=== PATIENT | male | born 1955 | race Caucasian/White ===

== ENCOUNTER → 2016-11-15 | Outpatient (CLI) | payer OTHER ==
[~2016-11-15] MED LIST: ALBU83IN INH; CITA10TA5 PO; DULO30CA PO; ETOD400T PO; GABA-283 PO; LORA1SOL PO; TIZA4CAP3 PO
--- NOTE | 2016-11-20 01:49 | ECWPNPC ---
PATIENT NAME: JULITA RICO : 1955 GENDER: MALE VISIT DATE: 11/15/2016 DISCHARGE DATE: 11/15/16 0938 VISIT LOCKED DATE TIME: PHYSICIAN: LIZETH CLEMONS RESOURCE: LIZETH CLEMONS REASON FOR APPOINTMENT 1. BACK HISTORY OF PRESENT ILLNESS HISTORY OF PRESENT ILLNESS: PAIN THE PATIENT DESCRIBES THE PAIN... FALL RISK SCREENING: SCREENING :NO FALLS IN THE PAST YEAR TODAY'S VISIT: NOTES: REPORTS PAIN IS CONSTANT. PAIN IS CENTERD IN LOW BACK AND RIGHT HIP AND SACRUM. PAIN ALSO RADIATES TO RIGHT KNEE. RATES PAIN TODAY 03/21.IS S/P LESB IN 12/17/15 WITH 75-80 % DECREASE IN PAIN FOR 2 WEEKS AND THEN SLOW RETUN OVER THE LAST 10 MONTHS. IS BECOMING HARDER TO WALK AND GO ABOUT HOUSEHOLD ACTIVITIES. . CURRENT MEDICATIONS TAKING ANECREAM 4 % CREAM EXTERNALLY EVERY 6 HR PRN TAKING CITALOPRAM HYDROBROMIDE 10 MG TABLET 1 TAB(S) ORALLY ONCE A DAY TAKING ALBUTEROL SULFATE HFA 108 (90 BASE) MCG/ACT AEROSOL SOLUTION 1-2 PUFFS NEEDED INHALATION EVERY 4-6 HRS TAKING METFORMIN HCL 1000 MG TABLET 1 TABLET WITH MEALS ORALLY TWICE A DAY TAKING LISINOPRIL 2.5 MG TABLET 1 TABLET ORALLY ONCE A DAY TAKING SYMBICORT 160-4.5 MCG/ACT AEROSOL 2 PUFFS INHALATION TWICE A DAY TAKING TRAZODONE HCL 50 MG TABLET 1 TABLET AT BEDTIME NEEDED ORALLY ONCE A DAY TAKING ROLLING WALKER 1 1 ROLLING WALKER WITH SEAT AND HANDBRAKES (DX. R26.81) _ DIRECTED TAKING GLIPIZIDE ER 10 MG TABLET EXTENDED RELEASE 24 HOUR TAKE ONE TABLET BY MOUTH PRIOR TO BREAKFAST AND DINNER ORALLY BID TAKING TRAMADOL HCL 50 MG TABLET 1 TABLET ORALLY EVERY 6 HRS PRN PAIN MDD=3 TAKING GABAPENTIN 400 MG CAPSULE TAKE ONE CAPSULE BY MOUTH 3 TIMES A DAY TAKING TIZANIDINE HCL 4 MG TABLET TAKE ONE TABLET BY MOUTH 3 TIMES A DAY NEEDED TAKING ETODOLAC 400 MG TABLET TAKE ONE TABLET BY MOUTH 2 TIMES A DAY TAKING DULOXETINE HCL 30 MG CAPSULE DELAYED RELEASE PARTICLES TAKE ONE CAPSULE BY MOUTH AT BEDTIME TAKING LORATADINE 10 MG TABLET TAKE ONE TABLET BY MOUTH ONCE DAILY NOT-TAKING NEURONTIN 400 MG CAPSULE 1 CAPSULE ORALLY TID NOT-TAKING DULERA 200-5 MCG/ACT AEROSOL 2 PUFFS INHALATION TWICE A DAY NOT-TAKING LISINOPRIL 2.5 MG TABLET TAKE ONE TABLET BY MOUTH ONCE DAILY NOT-TAKING SINGULAIR 10 MG TABLET TAKE ONE TABLET BY MOUTH EVERY EVENING NOT-TAKING BREO ELLIPTA 100 MCG/25 MCG INHALATION POWDER ONE INHALATION ORALLY ONCE DAILY NOT-TAKING TRAMADOL HCL 50 MG TABLET 1 TABLET ORALLY EVERY 6-8 HRS PRN PAIN MDD=3 NOT-TAKING FORADIL AEROLIZER 12 MCG CAPSULE 1 CAPSULE INHALATION EVERY 12 HRS NOT-TAKING ANORO ELLIPTA 62.5-25 MCG/INH AEROSOL POWDER BREATH ACTIVATED 1 PUFF INHALATION ONCE A DAY MEDICATION LIST REVIEWED AND RECONCILED WITH THE PATIENT PAST MEDICAL HISTORY LOW BACK PAIN TOBACCO ABUSE, IN REMISSION RIGHT HIP PAIN RIGHT KNEE PAIN WHEEZING ALLERGIC RHINITIS COPD (CHRONIC OBSTRUCTIVE PULMONARY DISEASE) ALLERGIES ANORO ELLIPTA: CHEST TIGHTNESS, DIZZINESS: SIDE EFFECTS FORADIL AEROLIZER: SEVERE DIZZINESS: SIDE EFFECTS BREO ELLIPTA: SEVERE DIZZINESS: SIDE EFFECTS SOCIAL HISTORY GENERAL: TOBACCO USE ARE YOU A:NONSMOKER LEARNING BARRIERS / SPECIAL NEEDS ORIENTED TO PLAN OF CARE: PATIENT, PAIN MANAGEMENT PATIENT, ORIENTED TO PLAN OF CARE: PATIENT, PAIN MANAGEMENT PATIENT. NEW PATIENT PAIN DIARY TODAY'S VISITNOTES FROM 0-10, WHAT LEVEL IS YOUR PAIN TODAY?0 PAIN CLINIC PFS, CLERGY, PUBLIC HEALTH REFERRALS PFS REFERRAL NEEDED?NO CLERGY REFERRAL NEEDED?NO PUBLIC HEALTH REFERRAL NEEDED?NO WAS THE PROVIDER NOTIFIED OF ANY PERTINENT INFO?NO PFS REFERRAL NEEDED?NO CLERGY REFERRAL NEEDED?NO PUBLIC HEALTH REFERRAL NEEDED?NO WAS THE PROVIDER NOTIFIED OF ANY PERTINENT INFO?NO REVIEW OF SYSTEMS CONSTITUTIONAL: ANY CHANGE IN YOUR MEDICAL CONDITION? NO . CHILLS NO . FEVER NO . INFECTION: DO YOU HAVE NEW INFECTIONS? NO . DO YOU HAVE HISTORY OF MRSA? NO . MUSCULOSKELETAL: ANY NEW PATTERNS OF PAIN OR NUMBNESS? NO . GASTROENTEROLOGY: ANY NEW CHANGE IN BOWEL CONTROL? NO - NO SIGNIF CONSTIPATION . GENITOURINARY: ANY NEW CHANGE IN BLADDER CONTROL? NO . IS THERE A CHANCE YOU COULD BE ? NO . HEMATOLOGY/LYMPH: DO YOU TAKE ANY BLOOD THINNERS? (FOR EXAMPLE- COUMADIN, PLAVIX, AGGRENOX, PLATEL, PRADAXA, OR XARELTO) NO . WHEN WAS YOUR LAST DOSE? DATE: TIME: . NEUROLOGY: HAVE YOU FALLEN IN THE PAST 6 MONTHS? NO . ANY NEW EXTREMITY NUMBNESS OR WEAKNESS? NO . CARDIOLOGY: DO YOU HAVE A PACEMAKER OR DEFIBRILLATOR? NO . RESPIRATORY: HAVE YOU BEEN SICK IN THE PAST WEEK? NO . FEVER NO . FLU LIKE SYMPTOMS? NO . CHRONIC LUNG DISEASES SORT OF BREATH WITH EXERTION . COUGH NO . INTEGUMENTARY: DO YOU HAVE ANY RASHES OR OPEN SORES? YES, RIGHT WRIST AND RIGHT UPPER ARM AFTER BANDAIDS REMOVED . ALLERGIC/IMMUNO: ARE YOU ALLERGIC TO SHELLFISH OR IV DYE? NO . ANY NEW ALLERGIES? NO . PSYCHIATRIC: DO YOU HAVE THOUGHTS OF HURTING YOURSELF OR SOMEONE ELSE? NO . ARE YOU ABUSED, NEGLECTED, OR IN AN UNSAFE ENVIRONMENT? NO . ENDOCRINOLOGY: ARE YOU DIABETIC? YES . OTHER: DO YOU NEED ANY PRESCRIPTIONS? NO . IF YES, PLEASE LIST: ____ . ANY NEW PROBLEMS WITH YOUR MEDICATIONS? NO . WHEN DID YOU LAST EAT? ____ . WHEN DID YOU LAST DRINK? ____ . WHAT DID YOU LAST DRINK? ____ . NAME OF PERSON DRIVING YOU HOME? ____ . DO YOU HAVE ANY OTHER QUESTIONS OR CONCERNS NO . SKIN: DO YOU HAVE ANY RASHES OR OPEN SORES? RIGHT BICEPS AND RIGHT WRIST - NOT HEALING . REVIEWED BY: PROVIDER: LIZETH GARCIAS . VITAL SIGNS WT 292.8 LBS, HT 67 IN, BMI 45.85 INDEX, BP 121/77 MM HG, HR 83 /MIN, RR 16 /MIN, TEMP 98.5 F, OXYGEN SAT % 96, NA INITIALS TL 0857, REVIEWED BY: CS. EXAMINATION GENERAL EXAMINATION: PSYCHALERT , ORIENTED X 3 , APPROPRIATE MOOD AND AFFECT . LUNGS:CLEAR TO AUSCULTATION BILATERALLY. HEART:HEART RATE REGULAR. MUSCULOSKELETAL:SLOW TO RISE TO STANDING POSITION. POINT TENDERNESS PRESENT OVER LUMOSACRAL SPINE AND ACROSS SACRUM WITH SPECIFIC TENDERNESS NOTED AT RIGHT FACETS AND RIGHT SIJS.. GAIT WIDE BASED/ ANTALGIC. PAIN WITH RIGHT QUAD FLEX.. 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 WALK TOLERATED,LUMBAR EPIDURAL INJECTION: YOUR PROCEDURE MATERIAL WAS PRINTED,WHAT IS LUMBAR EPIDURAL INJECTION? MATERIAL WAS PRINTED. CLINICAL NOTES: ISTOP REGISTRY REVIEWED AND DEMNOSTRATES COMPLLIANCE. PT ASKED TODAY FOR "STRONGER" PAIN MED. I DID REVIEW WITH HIM THAT DUE TO HIS RESPIRATORY SITUATION I WAS NOT COMFORTABLE WITH CHANGING HIS MEDS. PROCEDURE CODES FA211 ESTABILISHED PATIENT [facility] CHARGE DISPOSITION & COMMUNICATION FOLLOW UP AFTER INJECTION (REASON: CHECK AUTH FOR LESB) ELECTRONICALLY SIGNED BY TATIANA OGDEN ON 11/15/2016 AT 09:53 AM EST DISCLAIMER : THIS IS A VISIT SUMMARY EXTRACTED FROM THE [employer] CHART. IT IS NOT A COPY OF THE [employer] PROGRESS NOTE. MORRIS
== END ==
LOC: M PAIN 08:40
PROVIDERS: ATTEND Nurse Practitioner Family
DX: M43.16 Spondylolisthesis, lumbar region (principal); M46.96 Unspecified inflammatory spondylopathy, lumbar region; M48.06 Spinal stenosis, lumbar region; M54.41 Lumbago with sciatica, right side; F32.9 Major depressive disorder, single episode, unspecified; E11.42 Type 2 diabetes mellitus with diabetic polyneuropathy; E78.2 Mixed hyperlipidemia; Z79.891 Long term (current) use of opiate analgesic; Z79.899 Other long term (current) drug therapy; Z79.84 Long term (current) use of oral hypoglycemic drugs; Z88.8 Allergy status to other drugs, medicaments and biological substances

== ENCOUNTER → 2017-01-28 | Outpatient (REF) | payer OTHER ==
[2017-01-28 11:59] LABS: MEAN CORPUSCULAR HEMOGLOBIN 31.8 pg (27.0-33.0); MEAN CORPUSCULAR HGB CONC 34.8 g/dl (32.0-36.5); MEAN CORPUSCULAR VOLUME 91.4 fl (80.0-96.0); RED CELL DISTRIBUTION WIDTH 12.2 % (11.5-14.5); WHITE BLOOD COUNT 7.5 K/mm3 (4.0-10.0)
[2017-01-28 12:15] LABS: ALBUMIN 3.8 GM/DL (3.2-5.2); ALBUMIN/GLOBULIN RATIO 1.06 (1.00-1.93); ALKALINE PHOSPHATASE 54 U/L (45-117); ALT/SGPT 54 U/L (12-78); ANION GAP 7 MEQ/L (8-16); AST/SGOT 30 U/L (15-37); BILIRUBIN,TOTAL 0.6 MG/DL (0.2-1.0); BLOOD UREA NITROGEN 22 MG/DL (7-18); CALCIUM LEVEL 8.6 MG/DL (8.8-10.2); CARBON DIOXIDE LEVEL 29 MEQ/L (21-32); CHLORIDE LEVEL 103 MEQ/L (98-107); CHOLESTEROL LEVEL 189 MG/DL (<200); CREATININE FOR GFR 0.93 MG/DL (0.70-1.30); GLOMERULAR FILTRATION RATE > 60.0 (>49); GLUCOSE, FASTING 118 MG/DL (80-110); POTASSIUM SERUM 4.8 MEQ/L (3.5-5.1); SODIUM LEVEL 139 MEQ/L (136-145); TOTAL PROTEIN 7.4 GM/DL (6.4-8.2); TRIGLYCERIDES LEVEL 208 MG/DL (<150)
== END ==
LOC: M SFHCLERA 08:08
PROVIDERS: ATTEND Family Medicine
DX: E11.69 Type 2 diabetes mellitus with other specified complication (principal)

== ENCOUNTER → 2017-02-14 | Outpatient (REF) | payer OTHER | LOC: M SFHCLERA 08:48 | PROVIDERS: ATTEND Family Medicine | DX: E11.8 Type 2 diabetes mellitus with unspecified complications (principal); Z53.9 Procedure and treatment not carried out, unspecified reason ==

== ENCOUNTER → 2017-02-15 | Outpatient (CLI) | payer OTHER ==
--- NOTE | 2017-03-04 01:45 | ECWPNPC ---
PATIENT NAME: JULITA RICO : 1955 GENDER: MALE VISIT DATE: 02/15/2017 DISCHARGE DATE: 02/15/17925 VISIT LOCKED DATE TIME: PHYSICIAN: LIZETH CLEMONS RESOURCE: LIZETH CLEMONS REASON FOR APPOINTMENT 1. BACK HISTORY OF PRESENT ILLNESS HISTORY OF PRESENT ILLNESS: PAIN THE PATIENT DESCRIBES THE PAIN... FALL RISK SCREENING: SCREENING :NO FALLS IN THE PAST YEAR TODAY'S VISIT: NOTES: RATES PAIN TODAY 7/10. DESCRIBES PAIN CONSTANT, SHARP, STABBING, ACHING, TENDER AND SORE. PAIN CENTERED IN LOW BACK , RIGHT HIP/BUTTUCK AND LEG. . CURRENT MEDICATIONS TAKING ANECREAM 4 % CREAM EXTERNALLY EVERY 6 HR PRN TAKING ALBUTEROL SULFATE HFA 108 (90 BASE) MCG/ACT AEROSOL SOLUTION 1-2 PUFFS NEEDED INHALATION EVERY 4-6 HRS TAKING CITALOPRAM HYDROBROMIDE 10 MG TABLET 1 TAB(S) ORALLY ONCE A DAY TAKING TRAMADOL HCL 50 MG TABLET 1 TABLET ORALLY EVERY 6 HRS PRN PAIN MDD=3 TAKING DULOXETINE HCL 30 MG CAPSULE DELAYED RELEASE PARTICLES TAKE ONE CAPSULE BY MOUTH AT BEDTIME TAKING SINGULAIR 10 MG TABLET TAKE ONE TABLET BY MOUTH EVERY EVENING TAKING GABAPENTIN 400 MG CAPSULE TAKE ONE CAPSULE BY MOUTH 3 TIMES A DAY TAKING LORATADINE 10 MG TABLET TAKE ONE TABLET BY MOUTH ONCE DAILY TAKING TIZANIDINE HCL 4 MG TABLET TAKE ONE TABLET BY MOUTH 3 TIMES A DAY NEEDED TAKING ETODOLAC 400 MG TABLET TAKE ONE TABLET BY MOUTH 2 TIMES A DAY TAKING METFORMIN HCL 1000 MG TABLET 1 TABLET WITH MEALS ORALLY TWICE A DAY TAKING LISINOPRIL 2.5 MG TABLET 1 TABLET ORALLY ONCE A DAY TAKING ROLLING WALKER 1 1 HEAVY DUTY ROLLING WALKER WITH SEAT AND HANDBRAKES (DX. R26.81) - BMI 45, WEIGHT 290 LBS _ DIRECTED TAKING REMERON 15 MG TABLET 1 TABLET AT BEDTIME ORALLY ONCE A DAY TAKING PRAVASTATIN SODIUM 10 MG TABLET 1 TABLET ORALLY ONCE A DAY NOT-TAKING ATORVASTATIN CALCIUM 80 MG TABLET 1 TABLET ORALLY BEFORE BEDTIME NOT-TAKING SYMBICORT 160-4.5 MCG/ACT AEROSOL 2 PUFFS INHALATION TWICE A DAY NOT-TAKING GLIPIZIDE ER 10 MG TABLET EXTENDED RELEASE 24 HOUR 1 TABLET PRIOR TO BREAKFAST AND DINNER ORALLY BID NOT-TAKING GLIPIZIDE ER 10 MG TABLET EXTENDED RELEASE 24 HOUR TAKE ONE TABLET BY MOUTH PRIOR TO BREAKFAST AND DINNER ORALLY BID NOT-TAKING NEURONTIN 400 MG CAPSULE 1 CAPSULE ORALLY TID NOT-TAKING DULERA 200-5 MCG/ACT AEROSOL 2 PUFFS INHALATION TWICE A DAY NOT-TAKING BREO ELLIPTA 100 MCG/25 MCG INHALATION POWDER ONE INHALATION ORALLY ONCE DAILY NOT-TAKING TRAMADOL HCL 50 MG TABLET 1 TABLET ORALLY EVERY 6-8 HRS PRN PAIN MDD=3 NOT-TAKING FORADIL AEROLIZER 12 MCG CAPSULE 1 CAPSULE INHALATION EVERY 12 HRS NOT-TAKING ANORO ELLIPTA 62.5-25 MCG/INH AEROSOL POWDER BREATH ACTIVATED 1 PUFF INHALATION ONCE A DAY MEDICATION LIST REVIEWED AND RECONCILED WITH THE PATIENT PAST MEDICAL HISTORY OTHER CHRONIC PAIN PAIN IN RIGHT KNEE RIGHT HIP PAIN HEARING LOSS OF LEFT EAR, UNSPECIFIED HEARING LOSS TYPE BILATERAL 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 DEPRESSION OTHER SEASONAL ALLERGIC RHINITIS TYPE 2 DIABETES MELLITUS WITH DIABETIC POLYNEUROPATHY HYPERLIPIDEMIA ASSOCIATED WITH TYPE 2 DIABETES MELLITUS MIXED HYPERLIPIDEMIA NOCTURNAL HYPOXIA SPONDYLOLISTHESIS OF LUMBAR REGION LUMBAR FACET ARTHROPATHY CHRONIC PRESCRIPTION OPIATE USE SPINAL STENOSIS OF LUMBAR REGION STATIN-INDUCED MYOSITIS DIABETES MELLITUS WITH COMPLICATION INSOMNIA, UNSPECIFIED TYPE UNSTEADY GAIT HISTORY OF TOBACCO USE ALLERGIES ANORO ELLIPTA: CHEST TIGHTNESS, DIZZINESS: SIDE EFFECTS FORADIL AEROLIZER: SEVERE DIZZINESS: SIDE EFFECTS BREO ELLIPTA: SEVERE DIZZINESS: SIDE EFFECTS LIPITOR: SEVERE CRAMPS: SIDE EFFECTS REVIEW OF SYSTEMS REVIEWED BY: PROVIDER: . CONSTITUTIONAL: ANY CHANGE IN YOUR MEDICAL CONDITION? NO . CHILLS NO . FEVER NO . INFECTION: DO YOU HAVE NEW INFECTIONS? NO . DO YOU HAVE HISTORY OF MRSA? NO . MUSCULOSKELETAL: ANY NEW PATTERNS OF PAIN OR NUMBNESS? YES, AFTER LAYING ON LEFT SIDE, LEFT HIP GETS SORE . GASTROENTEROLOGY: ANY NEW CHANGE IN BOWEL CONTROL? NO . GENITOURINARY: ANY NEW CHANGE IN BLADDER CONTROL? NO . IS THERE A CHANCE YOU COULD BE ? NO . HEMATOLOGY/LYMPH: DO YOU TAKE ANY BLOOD THINNERS? (FOR EXAMPLE- COUMADIN, PLAVIX, AGGRENOX, PLATEL, PRADAXA, OR XARELTO) NO . WHEN WAS YOUR LAST DOSE? DATE: TIME: . NEUROLOGY: HAVE YOU FALLEN IN THE PAST 6 MONTHS? NO . ANY NEW EXTREMITY NUMBNESS OR WEAKNESS? NO . CARDIOLOGY: DO YOU HAVE A PACEMAKER OR DEFIBRILLATOR? NO . RESPIRATORY: HAVE YOU BEEN SICK IN THE PAST WEEK? NO . FEVER NO . FLU LIKE SYMPTOMS? NO . COUGH NO . INTEGUMENTARY: DO YOU HAVE ANY RASHES OR OPEN SORES? YES - RIGHT WRIST AND RIGHT UPPER EXTREMITY. . ALLERGIC/IMMUNO: ARE YOU ALLERGIC TO SHELLFISH OR IV DYE? NO . ANY NEW ALLERGIES? NO . PSYCHIATRIC: DO YOU HAVE THOUGHTS OF HURTING YOURSELF OR SOMEONE ELSE? NO . ARE YOU ABUSED, NEGLECTED, OR IN AN UNSAFE ENVIRONMENT? NO . ENDOCRINOLOGY: ARE YOU DIABETIC? YES -DOES NOT MONITOR BLOOD SUGAR . OTHER: DO YOU NEED ANY PRESCRIPTIONS? YES . IF YES, PLEASE LIST: TRAMADOL . ANY NEW PROBLEMS WITH YOUR MEDICATIONS? NO . WHEN DID YOU LAST EAT? ____ . WHEN DID YOU LAST DRINK? ____ . WHAT DID YOU LAST DRINK? ____ . NAME OF PERSON DRIVING YOU HOME? ____ . DO YOU HAVE ANY OTHER QUESTIONS OR CONCERNS YES,&QUOT;AFTER LAYING ON LEFT SIDE, LEFT HIP GETS SORE&QUOT; . VITAL SIGNS WT 294.0 LBS, HT 67 IN, BMI 46.04 INDEX, BP 124/69 MM HG, HR 70 /MIN, RR 16 /MIN, TEMP 96.0 F, OXYGEN SAT % 96%, NA INITIALS TL 0855, REVIEWED BY: MELODY. EXAMINATION GENERAL EXAMINATION: PSYCHALERT , ORIENTED X 3 , APPROPRIATE MOOD AND AFFECT . LUNGS:CLEAR TO AUSCULTATION BILATERALLY. HEART:HEART RATE REGULAR. MUSCULOSKELETAL:SLOW TO RISE TO STANDING POSITION. POINT TENDERNESS PRESENT OVER LUMOSACRAL SPINE AND ACROSS SACRUM WITH SPECIFIC TENDERNESS NOTED AT RIGHT FACETS AND RIGHT SIJS.. GAIT WIDE BASED/ ANTALGIC. PAIN WITH RIGHT QUAD FLEX.. 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 WALK TOLERATED. PROCEDURE CODES FA211 ESTABILISHED PATIENT [facility] CHARGE DISPOSITION & COMMUNICATION FOLLOW UP 3 MONTHS (REASON: BACK AND HIP PAIN) ELECTRONICALLY SIGNED BY TATIANA OGDEN ON 03/03/2017 AT 05:35 PM EDT DISCLAIMER : THIS IS A VISIT SUMMARY EXTRACTED FROM THE [employer] CHART. IT IS NOT A COPY OF THE [employer] PROGRESS NOTE. MORRIS
== END ==
LOC: M PAIN 08:40
PROVIDERS: ATTEND Nurse Practitioner Family
DX: M43.16 Spondylolisthesis, lumbar region (principal); M46.96 Unspecified inflammatory spondylopathy, lumbar region; M48.06 Spinal stenosis, lumbar region; G89.29 Other chronic pain; J43.1 Panlobular emphysema; F32.9 Major depressive disorder, single episode, unspecified; E11.69 Type 2 diabetes mellitus with other specified complication; R26.81 Unsteadiness on feet; G47.00 Insomnia, unspecified; Z79.891 Long term (current) use of opiate analgesic; Z79.899 Other long term (current) drug therapy; Z79.84 Long term (current) use of oral hypoglycemic drugs; Z88.8 Allergy status to other drugs, medicaments and biological substances; Z87.891 Personal history of nicotine dependence

== ENCOUNTER → 2017-05-19 | Outpatient (CLI) | payer OTHER ==
--- NOTE | 2017-06-05 00:31 | ECWPNPC ---
PATIENT NAME: JULITA RICO : 1955 GENDER: MALE VISIT DATE: 05/19/2017 DISCHARGE DATE: 05/19/17 1018 VISIT LOCKED DATE TIME: PHYSICIAN: LIZETH CLEMONS RESOURCE: LIZETH CLEMONS REASON FOR APPOINTMENT 1. BACK/HIPS HISTORY OF PRESENT ILLNESS HISTORY OF PRESENT ILLNESS: PAIN THE PATIENT DESCRIBES THE PAIN... FALL RISK SCREENING: SCREENING :NO FALLS IN THE PAST YEAR TODAY'S VISIT: NOTES: RATES PAIN TODAY 03/21. NOTES HAS BEEN DOING FAIRLY WELL EXCEPT WHEN IT RAINSPAIN IS CENTERED TO LOW BACK WITH RADIATION TO RIGHT HIP AND GROIN. NOTES SOME STIFFNESS. ABLE TO RISE TO STANDING POSITION. . CURRENT MEDICATIONS TAKING ANECREAM 4 % CREAM EXTERNALLY EVERY 6 HR PRN TAKING ALBUTEROL SULFATE HFA 108 (90 BASE) MCG/ACT AEROSOL SOLUTION 1-2 PUFFS NEEDED INHALATION EVERY 4-6 HRS TAKING CITALOPRAM HYDROBROMIDE 10 MG TABLET 1 TAB(S) ORALLY ONCE A DAY TAKING METFORMIN HCL 1000 MG TABLET 1 TABLET WITH MEALS ORALLY TWICE A DAY TAKING LISINOPRIL 2.5 MG TABLET 1 TABLET ORALLY ONCE A DAY TAKING ROLLING WALKER 1 1 HEAVY DUTY ROLLING WALKER WITH SEAT AND HANDBRAKES (DX. R26.81) - BMI 45, WEIGHT 290 LBS _ DIRECTED TAKING REMERON 15 MG TABLET 1 TABLET AT BEDTIME ORALLY ONCE A DAY TAKING SIMVASTATIN 5 MG TABLET 1 TABLET IN THE EVENING ORALLY ONCE A DAY TAKING TIZANIDINE HCL 4 MG TABLET TAKE ONE TABLET BY MOUTH 3 TIMES A DAY NEEDED TAKING LORATADINE 10 MG TABLET TAKE ONE TABLET BY MOUTH ONCE DAILY TAKING GABAPENTIN 400 MG CAPSULE TAKE ONE CAPSULE BY MOUTH 3 TIMES A DAY TAKING ETODOLAC 400 MG TABLET TAKE ONE TABLET BY MOUTH 2 TIMES A DAY TAKING SINGULAIR 10 MG TABLET TAKE ONE TABLET BY MOUTH EVERY EVENING ORALLY ONCE A DAY TAKING DULOXETINE HCL 30 MG CAPSULE DELAYED RELEASE PARTICLES TAKE ONE CAPSULE BY MOUTH AT BEDTIME DAILY TAKING TRAMADOL HCL 50 MG TABLET 1 TABLET ORALLY EVERY 6 HRS PRN PAIN MDD=3 NOT-TAKING SYMBICORT 160-4.5 MCG/ACT AEROSOL 2 PUFFS INHALATION TWICE A DAY NOT-TAKING GLIPIZIDE ER 10 MG TABLET EXTENDED RELEASE 24 HOUR 1 TABLET PRIOR TO BREAKFAST AND DINNER ORALLY BID NOT-TAKING GLIPIZIDE ER 10 MG TABLET EXTENDED RELEASE 24 HOUR TAKE ONE TABLET BY MOUTH PRIOR TO BREAKFAST AND DINNER ORALLY BID NOT-TAKING NEURONTIN 400 MG CAPSULE 1 CAPSULE ORALLY TID NOT-TAKING DULERA 200-5 MCG/ACT AEROSOL 2 PUFFS INHALATION TWICE A DAY NOT-TAKING BREO ELLIPTA 100 MCG/25 MCG INHALATION POWDER ONE INHALATION ORALLY ONCE DAILY NOT-TAKING TRAMADOL HCL 50 MG TABLET 1 TABLET ORALLY EVERY 6-8 HRS PRN PAIN MDD=3 NOT-TAKING FORADIL AEROLIZER 12 MCG CAPSULE 1 CAPSULE INHALATION EVERY 12 HRS NOT-TAKING ANORO ELLIPTA 62.5-25 MCG/INH AEROSOL POWDER BREATH ACTIVATED 1 PUFF INHALATION ONCE A DAY MEDICATION LIST REVIEWED AND RECONCILED WITH THE PATIENT PAST MEDICAL HISTORY OTHER CHRONIC PAIN PAIN IN RIGHT KNEE RIGHT HIP PAIN HEARING LOSS OF LEFT EAR, UNSPECIFIED HEARING LOSS TYPE BILATERAL 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 DEPRESSION OTHER SEASONAL ALLERGIC RHINITIS TYPE 2 DIABETES MELLITUS WITH DIABETIC POLYNEUROPATHY HYPERLIPIDEMIA ASSOCIATED WITH TYPE 2 DIABETES MELLITUS MIXED HYPERLIPIDEMIA NOCTURNAL HYPOXIA SPONDYLOLISTHESIS OF LUMBAR REGION LUMBAR FACET ARTHROPATHY CHRONIC PRESCRIPTION OPIATE USE SPINAL STENOSIS OF LUMBAR REGION STATIN-INDUCED MYOSITIS DIABETES MELLITUS WITH COMPLICATION INSOMNIA, UNSPECIFIED TYPE UNSTEADY GAIT HISTORY OF TOBACCO USE ALLERGIES ANORO ELLIPTA: CHEST TIGHTNESS, DIZZINESS: SIDE EFFECTS FORADIL AEROLIZER: SEVERE DIZZINESS: SIDE EFFECTS BREO ELLIPTA: SEVERE DIZZINESS: SIDE EFFECTS LIPITOR: SEVERE CRAMPS: SIDE EFFECTS LATEX: RASH: ALLERGY SOCIAL HISTORY GENERAL: TOBACCO USE ARE YOU A:: FORMER SMOKER , HOW LONG HAS IT BEEN SINCE YOU LAST SMOKED?: 1-5 YEARS, ARE YOU A: NONSMOKER. BMI CARE GOAL FOLLOW-UP ABOVE NORMAL BMI FOLLOW-UPDIETARY MANAGEMENT EDUCATION, GUIDANCE, AND COUNSELING ALCOHOL SCREENING DID YOU HAVE A DRINK CONTAINING ALCOHOL IN THE PAST YEAR?NO POINTS0 INTERPRETATIONNEGATIVE RECREATIONAL DRUG USE [facility]. [place] 1-2/DAY. OCCUPATION: UNEMPLOYED. DIET: REGULAR. EXERCISE: NO REGULAR EXERCISE. MARITAL STATUS: . OTHERS AT HOME: SPOUSE. PETS: NONE. ORIENTAL ORTHODOX NO PROTESTANT BELIEFS THAT WOULD IMPACT HEALTH CARE. LANGUAGE [place]. EDUCATION [employer]. LEARNING BARRIERS / SPECIAL NEEDS CHANGE FROM LAST VISIT?NO BARRIERS TO LEARNING?NO HEARING IMPAIRED?NO VISION IMPAIRED?YES :CORRECTIVE LENSES COGNITIVELY IMPAIRED?NO READINESS TO LEARN?YES LEARNING PREFERENCES?NO LEARNING CAPABILITIES PRESENT?YES EMOTIONAL BARRIERS?NO SPECIAL DEVICES?NO PAIN CLINIC PFS, CLERGY, PUBLIC HEALTH REFERRALS PFS REFERRAL NEEDED?NO CLERGY REFERRAL NEEDED?NO PUBLIC HEALTH REFERRAL NEEDED?NO HAS THE PATIENT BEEN EDUCATED REGARDING HIS/HER PLAN OF CARE?YES HAS THE PATIENT BEEN EDUCATED REGARDING PAIN, THE RISK FOR PAIN, THE IMPORTANCE OF EFFECTIVE PAIN MANAGEMENT, AND THE PAIN ASSESSMENT PROCESS?YES TRAVEL OUTSIDE US: NO. HOUSING: RENTS APARTMENT. DOMESTIC VIOLENCE NONE. REVIEW OF SYSTEMS REVIEWED BY: PROVIDER: LIZETH GARCIAS . CONSTITUTIONAL: ANY CHANGE IN YOUR MEDICAL CONDITION? NO . CHILLS NO . FEVER NO . INFECTION: DO YOU HAVE NEW INFECTIONS? NO . DO YOU HAVE HISTORY OF MRSA? NO . MUSCULOSKELETAL: ANY NEW PATTERNS OF PAIN OR NUMBNESS? NO . GASTROENTEROLOGY: ANY NEW CHANGE IN BOWEL CONTROL? NO . GENITOURINARY: ANY NEW CHANGE IN BLADDER CONTROL? NO . IS THERE A CHANCE YOU COULD BE ? NO . HEMATOLOGY/LYMPH: DO YOU TAKE ANY BLOOD THINNERS? (FOR EXAMPLE- COUMADIN, PLAVIX, AGGRENOX, PLATEL, PRADAXA, OR XARELTO) NO . WHEN WAS YOUR LAST DOSE? DATE: TIME: . NEUROLOGY: HAVE YOU FALLEN IN THE PAST 6 MONTHS? NO . ANY NEW EXTREMITY NUMBNESS OR WEAKNESS? NO . CARDIOLOGY: DO YOU HAVE A PACEMAKER OR DEFIBRILLATOR? NO . RESPIRATORY: HAVE YOU BEEN SICK IN THE PAST WEEK? NO . FEVER NO . FLU LIKE SYMPTOMS? NO . CHRONIC LUNG DISEASES COPD - NO SIG DETERUIORATION IN BREATHING STATUS. . COUGH NO . INTEGUMENTARY: DO YOU HAVE ANY RASHES OR OPEN SORES? NO . ALLERGIC/IMMUNO: ARE YOU ALLERGIC TO SHELLFISH OR IV DYE? NO . ANY NEW ALLERGIES? NO . PSYCHIATRIC: DO YOU HAVE THOUGHTS OF HURTING YOURSELF OR SOMEONE ELSE? NO . ARE YOU ABUSED, NEGLECTED, OR IN AN UNSAFE ENVIRONMENT? NO . ENDOCRINOLOGY: ARE YOU DIABETIC? YES - BLOOD SUGAES STABLE . OTHER: DO YOU NEED ANY PRESCRIPTIONS? NO . IF YES, PLEASE LIST: ____ . ANY NEW PROBLEMS WITH YOUR MEDICATIONS? NO . WHEN DID YOU LAST EAT? ____ . WHEN DID YOU LAST DRINK? ____ . WHAT DID YOU LAST DRINK? ____ . NAME OF PERSON DRIVING YOU HOME? ____ . DO YOU HAVE ANY OTHER QUESTIONS OR CONCERNS NO . VITAL SIGNS WT 283 LBS, HT 67 IN, BMI 44.32 INDEX, BP 120/70 MM HG, HR 74 /MIN, RR 16 /MIN, TEMP 96.0 F, OXYGEN SAT % 94%, NA INITIALS AW 0925, REVIEWED BY: MELODY. EXAMINATION GENERAL EXAMINATION: PSYCHALERT , ORIENTED X 3 , APPROPRIATE MOOD AND AFFECT . LUNGS:CLEAR TO AUSCULTATION BILATERALLY. HEART:HEART RATE REGULAR. MUSCULOSKELETAL:SLOW TO RISE TO STANDING POSITION. POINT TENDERNESS PRESENT OVER LUMOSACRAL SPINE AND ACROSS SACRUM WITH SPECIFIC TENDERNESS NOTED AT RIGHT FACETS AND RIGHT SIJS.. GAIT WIDE BASED/ ANTALGIC. PAIN WITH RIGHT QUAD FLEX.. 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 WALK TOLERATED. CALL WHEN MEDS DUE. CALL IF PAIN GETS WOSE OR IF THERE IS WORSE ABILITY TO MOVE. PROCEDURE CODES FA211 ESTABILISHED PATIENT [facility] CHARGE DISPOSITION & COMMUNICATION FOLLOW UP 3 MONTHS (REASON: BACK/HIP PAIN) ELECTRONICALLY SIGNED BY TATIANA OGDEN ON 06/04/2017 AT 03:00 PM EDT DISCLAIMER : THIS IS A VISIT SUMMARY EXTRACTED FROM THE [employer] CHART. IT IS NOT A COPY OF THE [employer] PROGRESS NOTE. MORRIS
== END ==
LOC: M PAIN 09:00
PROVIDERS: ATTEND Nurse Practitioner Family
DX: M43.16 Spondylolisthesis, lumbar region (principal); M46.96 Unspecified inflammatory spondylopathy, lumbar region; M48.06 Spinal stenosis, lumbar region; J43.1 Panlobular emphysema; F32.9 Major depressive disorder, single episode, unspecified; E11.42 Type 2 diabetes mellitus with diabetic polyneuropathy; E11.69 Type 2 diabetes mellitus with other specified complication; E78.2 Mixed hyperlipidemia; Z79.891 Long term (current) use of opiate analgesic; Z79.899 Other long term (current) drug therapy; Z79.84 Long term (current) use of oral hypoglycemic drugs; Z87.891 Personal history of nicotine dependence; Z88.8 Allergy status to other drugs, medicaments and biological substances; Z91.040 Latex allergy status

== ENCOUNTER → 2017-09-26 | Outpatient (CLI) | payer OTHER | LOC: M PAIN 10:45 | DX: M43.16 Spondylolisthesis, lumbar region (principal); M46.96 Unspecified inflammatory spondylopathy, lumbar region; M48.061 Spinal stenosis, lumbar region without neurogenic claudication; E11.9 Type 2 diabetes mellitus without complications; E78.5 Hyperlipidemia, unspecified; Z79.84 Long term (current) use of oral hypoglycemic drugs; Z79.899 Other long term (current) drug therapy; Z87.891 Personal history of nicotine dependence; Z88.8 Allergy status to other drugs, medicaments and biological substances; Z91.040 Latex allergy status | CPT/HCPCS: G0463 ==

== ENCOUNTER → 2018-02-09 | Outpatient (CLI) | payer OTHER ==
[2018-02-09 09:33] LABS: BASO # 0.1 10^3/uL (0.0-0.2); BASO % 1.5 % (0.0-1.0); EOS # 0.4 10^3/uL (0.0-0.50); HEMATOCRIT 39.2 % (42.0-52.0); HEMOGLOBIN 13.9 g/dl (13.5-17.5); IMMATURE GRANULOCYTE % 0.6 % (0-3.0); LYMPH % 42.5 % (24.0-44.0); MEAN CORPUSCULAR HGB CONC 35.5 g/dl (32.0-36.5); MEAN CORPUSCULAR VOLUME 90.1 fl (80.0-96.0); MONO # 0.7 10^3/uL (0.0-0.8); MONO % 9.5 % (0.0-5.0); NEUTROPHILS # 2.9 10^3/uL (1.8-7.7); NEUTROPHILS % 40.9 % (36.0-66.0); PLATELET COUNT, AUTOMATED 158 10^3/uL (150-450); RED BLOOD COUNT 4.35 10^6/uL (4.30-6.10); WHITE BLOOD COUNT 7.1 10^3/uL (4.0-10.0)
[2018-02-09 09:52] LABS: APPEARANCE, URINE CLEAR (CLEAR); BACTERIA, URINE AUTO NEGATIVE (NEGATIVE); BILIRUBIN, URINE AUTO NEGATIVE (NEGATIVE); BLOOD, URINE BLOOD NEGATIVE (NEGATIVE); COLOR, URINE YELLOW (YELLOW); GLUCOSE, URINE (UA) AUTO NEGATIVE (NEGATIVE); KETONE, URINE AUTO NEGATIVE (NEGATIVE); LEUKOCYTE ESTERASE, URINE AUTO NEGATIVE (NEGATIVE); MUCUS, URINE SMALL (NEGATIVE); NITRITE, URINE AUTO NEGATIVE (NEGATIVE); PROTEIN, URINE AUTO NEGATIVE (NEGATIVE); RBC, URINE AUTO 3 /HPF (0-3); SPECIFIC GRAVITY URINE AUTO 1.011 (1.002-1.035); SQUAMOUS EPITHELIAL CELL UR AU 0 /HPF (0-6); WBC, URINE AUTO 1 /HPF (0-3)
[2018-02-09 10:05] LABS: CREATININE, URINE 80.6 MG/DL; MALB URINE SIEMENS 10.5 MG/L
[2018-02-09 10:13] LABS: ESTIMATED AVERAGE GLUCOSE 140 MG/DL (60-110); HEMOGLOBIN A1c 6.5 %
[2018-02-09 21:58] LABS: ALBUMIN/GLOBULIN RATIO 1.08 (1.00-1.93); ALKALINE PHOSPHATASE 54 U/L (45-117); ALT/SGPT 79 U/L (12-78); ANION GAP 8 MEQ/L (8-16); AST/SGOT 59 U/L (7-37); BILIRUBIN,TOTAL 0.7 MG/DL (0.2-1.0); BLOOD UREA NITROGEN 16 MG/DL (7-18); CALCIUM LEVEL 9.1 MG/DL (8.8-10.2); CARBON DIOXIDE LEVEL 26 MEQ/L (21-32); CHLORIDE LEVEL 108 MEQ/L (98-107); CHOLESTEROL LEVEL 166 MG/DL (<200); CHOLESTEROL RISK RATIO 3.458 (<5); CREATININE FOR GFR 0.98 MG/DL (0.70-1.30); GLOMERULAR FILTRATION RATE > 60.0 (>49); GLUCOSE, FASTING 88 MG/DL (70-100); HDL CHOLESTEROL 48 MG/DL (>40); LDL CHOLESTEROL 85.6 MG/DL (<100); NON-HDL-C 118 MG/DL; POTASSIUM SERUM 4.1 MEQ/L (3.5-5.1); SODIUM LEVEL 142 MEQ/L (136-145); TOTAL PROTEIN 7.7 GM/DL (6.4-8.2); TRIGLYCERIDES LEVEL 162 MG/DL (<150)
== END ==
LOC: M LAB 07:46
DX: I10 Essential (primary) hypertension (principal); E78.2 Mixed hyperlipidemia; E11.65 Type 2 diabetes mellitus with hyperglycemia; Z79.4 Long term (current) use of insulin
CPT/HCPCS: 80053

== ENCOUNTER → 2020-04-08 | Outpatient (REF) | payer BC ==
[~2020-04-08] MED LIST changes: -DULO30CA PO; +DULO30CA9 PO; -GABA-283 PO; +GABA-845 PO; -LORA1SOL PO; +LORA5SOL12 PO; +TIZA4CAP PO; -TIZA4CAP3 PO
[2020-05-02 11:39] LABS: BASO # 0.2 10^3/uL (0.0-0.2); BASO % 1.5 % (0.0-1.0); EOS # 0.5 10^3/uL (0.0-0.5); EOS % 4.1 % (0.0-3.0); HEMATOCRIT 43.9 % (42.0-52.0); LYMPH # 5.2 10^3/uL (1.5-5.0); LYMPH % 46.8 % (24.0-44.0); MEAN CORPUSCULAR HEMOGLOBIN 32.5 pg (27.0-33.0); MEAN CORPUSCULAR HGB CONC 34.2 g/dl (32.0-36.5); MONO # 0.9 10^3/uL (0.0-0.8); MONO % 8.3 % (0.0-5.0); NEUTROPHILS # 4.3 10^3/uL (1.5-8.5); NEUTROPHILS % 38.8 % (36.0-66.0); PLATELET COUNT, AUTOMATED 210 10^3/uL (150-450); RED BLOOD COUNT 4.62 10^6/uL (4.30-6.10)
[2020-05-02 11:40] LABS: WHITE BLOOD COUNT 11.1 10^3/uL (4.0-10.0)
[2020-05-12 14:12] LABS: HEMOGLOBIN A1c 5.5 %
[2020-05-12 14:13] LABS: ALBUMIN 4.2 GM/DL (3.2-5.2); ALT/SGPT 33 U/L (12-78); BILIRUBIN,TOTAL 0.4 MG/DL (0.2-1.0); BLOOD UREA NITROGEN 19 MG/DL (7-18); CALCIUM LEVEL 9.7 MG/DL (8.8-10.2); CARBON DIOXIDE LEVEL 25 MEQ/L (21-32); CHLORIDE LEVEL 107 MEQ/L (98-107); CHOLESTEROL LEVEL 240 MG/DL (<200); CHOLESTEROL RISK RATIO 5.853 (<5); CREATININE FOR GFR 1.17 MG/DL (0.70-1.30); FREE T4 0.67 NG/DL (0.76-1.46); GLOMERULAR FILTRATION RATE > 60.0 (>49); HDL CHOLESTEROL 41 MG/DL (>40); LDL CHOLESTEROL 137 MG/DL (<100); NON-HDL-C 199 MG/DL; POTASSIUM SERUM 4.8 MEQ/L (3.5-5.1); SODIUM LEVEL 142 MEQ/L (136-145); TOTAL 25(OH) VITAMIN D 14.8 NG/ML (30.0-100.0); TOTAL PROTEIN 8.1 GM/DL (6.4-8.2); TOTAL T3 72.5 NG/DL (60.0-181.0); TRIGLYCERIDES LEVEL 311 MG/DL (<150)
[2020-05-12 14:14] LABS: GLUCOSE, FASTING 139 MG/DL (70-100)
[2020-06-13 12:08] LABS: PSA TOTAL See Separate Report
[2020-06-13 12:15] LABS: PSA FREE See Separate Report
== END ==
LOC: M WUC 15:07
PROVIDERS: ATTEND Nurse Practitioner Family
DX: I10 Essential (primary) hypertension (principal); Z13.29 Encounter for screening for other suspected endocrine disorder; Z12.5 Encounter for screening for malignant neoplasm of prostate; E11.69 Type 2 diabetes mellitus with other specified complication; Z13.21 Encounter for screening for nutritional disorder

== ENCOUNTER 2022-05-23 16:31 | Inpatient (IN) | payer MEDICARE, MEDICAID ==
[~2022-05-23] VITALS: Ht 172.7 cm; Wt 101.6 kg
[~2022-05-23 16:31] MED LIST changes: +ALBU2.5V10 INH; -ALBU83IN INH; -CITA10TA5 PO; +CITA10TA7 PO; +ETOD-173 PO; -ETOD400T PO; +GABA-283 PO; -GABA-845 PO; -LORA5SOL12 PO; +LORA5SOL44 PO
[2022-05-23 17:00] LABS: BASO # 0.1 10^3/uL (0.0-0.2); BASO % 0.5 % (0.0-1.0); EOS % 0.1 % (0.0-3.0); HEMATOCRIT 40.6 % (42.0-52.0); LYMPH # 1.4 10^3/uL (1.5-5.0); LYMPH % 10.4 % (24.0-44.0); MEAN CORPUSCULAR HGB CONC 34.5 g/dl (32.0-36.5); MEAN CORPUSCULAR VOLUME 89.8 fl (80.0-96.0); MONO # 0.9 10^3/uL (0.0-0.8); MONO % 6.5 % (2.0-8.0); NEUTROPHILS # 11.1 10^3/uL (1.5-8.5); NEUTROPHILS % 81.8 % (36.0-66.0); PLATELET COUNT, AUTOMATED 246 10^3/uL (150-450); RED BLOOD COUNT 4.52 10^6/uL (4.30-6.10); WHITE BLOOD COUNT 13.6 10^3/uL (4.0-10.0)
[2022-05-23] MEDS ORDERED: ACETAMINOPHEN 325 MG TAB PO ONE (17:00)
[2022-05-23] MEDS ORDERED: AZITHROMYCIN INJ 500 MG, VIAL MATE ADAPTER 1 EACH in NS 250 ML IV ONE (17:10)
[2022-05-23] MEDS ORDERED: cefTRIAXone SOD 1 GM in D5W MINI-BAG PLUS 50 ML IV ONE (17:10)
[2022-05-23 17:42] LABS: ALBUMIN 4.1 GM/DL (3.2-5.2); ALT/SGPT 14 U/L (12-78); BILIRUBIN,DIRECT 0.2 MG/DL (0.0-0.2); BILIRUBIN,TOTAL 0.6 MG/DL (0.2-1.0); BLOOD UREA NITROGEN 14 MG/DL (7-18); CALCIUM LEVEL 9.4 MG/DL (8.8-10.2); CARBON DIOXIDE LEVEL 25 MEQ/L (21-32); CHLORIDE LEVEL 100 MEQ/L (98-107); CREATININE FOR GFR 0.94 MG/DL (0.70-1.30); GLOMERULAR FILTRATION RATE > 60.0 (>49); GLUCOSE, FASTING 110 MG/DL (70-100); POTASSIUM SERUM 4.8 MEQ/L (3.5-5.1); SODIUM LEVEL 133 MEQ/L (136-145); THYROID STIMULATING HORMONE 0.292 uIU/ML (0.358-3.740); TOTAL PROTEIN 7.7 GM/DL (6.4-8.2)
[2022-05-23] MEDS ORDERED: GLIP10TA18 PO (19:14)
[2022-05-23] MEDS ORDERED: LISI2.5T9 PO (19:14)
[2022-05-23] MEDS ORDERED: OMEP-173 PO (19:14)
[2022-05-23] MEDS ORDERED: METF10004 PO (19:14)
[2022-05-23] MEDS ORDERED: MIRT-10 PO (19:14)
[2022-05-23] MEDS ORDERED: MONT10TA97 PO (19:14)
[2022-05-23] MEDS ORDERED: med rec comment (19:16)
[2022-05-23] MEDS ORDERED: HOME MED LIST COMPLETE! XX SCH (19:20)
[2022-05-23] MEDS: GABAPENTIN 400MG CAP PO SCH (20:01)
[2022-05-23] MEDS ORDERED: GLUCOSE 4GM CHEW TABLET PO PRN (20:15)
[2022-05-23] MEDS ORDERED: ALBUTEROL SULFATE 2.5 MG/0.5 ML INH NEB SOLN NEB PRN (20:15)
[2022-05-23] MEDS ORDERED: DEXTROSE 50% 50 ML SYRINGE IV PRN (20:15)
[2022-05-23] MEDS ORDERED: GLUCAGON INJ 1MG VIAL SC PRN (20:15)
[2022-05-23] MEDS ORDERED: MIRTAZAPINE 15 MG TAB PO SCH (21:00)
[2022-05-23] MEDS: INSULIN LISPRO (NovoLOG) PER UNIT SC SCH (21:00)
[2022-05-23] MEDS ORDERED: NS 500 ML IV ONE (21:05)
[2022-05-23] MEDS ORDERED: NICOTINE 21MG/24HR 1 EA TRANSDERMAL TD ONE (22:00)
[2022-05-23] MEDS ORDERED: ASPIRIN 81 MG CHEW TABLET PO ONE (22:00)
[2022-05-23 22:25] VITALS: BP 122/79
[2022-05-23 22:56] LABS: VENOUS BASE EXCESS -2.2 (-2.0-2.0); VENOUS HCO3 22.9 MEQ/L (23.0-27.0); VENOUS O2 SATURATION 55.3 % (60.0-80.0); VENOUS PARTIAL PRESSURE CO2 40.7 mmHg (38.0-50.0); VENOUS PARTIAL PRESSURE O2 29.2 mmHg (30.0-50.0); VENOUS PH 7.368 UNITS (7.330-7.430); VENOUS STANDARD HCO3 21.6 MEQ/L; VENOUS TOTAL CO2 24.1 MEQ/L (24.0-28.0)
[2022-05-23] MEDS: DOXYCYCLINE HYCLATE 100MG TABLET PO SCH (23:58)
[2022-05-24] VITALS: BP 132/71
[2022-05-24] MEDS: IPRATROPIUM 0.5MG/ALBUTEROL 2.5MG INH SOL UD 3ML (DUONEB) NEB SCH ×3 (02:00→19:03)
[2022-05-24 04:00] VITALS: BP 157/55
[2022-05-24] MEDS: INSULIN LISPRO (NovoLOG) PER UNIT SC SCH ×4 (07:30→21:00)
[2022-05-24 07:46] LABS: BLOOD UREA NITROGEN 15 MG/DL (7-18); CALCIUM LEVEL 9.1 MG/DL (8.8-10.2); CARBON DIOXIDE LEVEL 23 MEQ/L (21-32); CHLORIDE LEVEL 102 MEQ/L (98-107); CREATININE FOR GFR 0.76 MG/DL (0.70-1.30); GLOMERULAR FILTRATION RATE > 60.0 (>49); GLUCOSE, FASTING 92 MG/DL (70-100); HEMATOCRIT 37.9 % (42.0-52.0); HEMOGLOBIN 12.7 g/dl (13.5-17.5); MEAN CORPUSCULAR HEMOGLOBIN 30.4 pg (27.0-33.0); MEAN CORPUSCULAR HGB CONC 33.5 g/dl (32.0-36.5); MEAN CORPUSCULAR VOLUME 90.7 fl (80.0-96.0); PLATELET COUNT, AUTOMATED 205 10^3/uL (150-450); POTASSIUM SERUM 4.3 MEQ/L (3.5-5.1); RED BLOOD COUNT 4.18 10^6/uL (4.30-6.10); SODIUM LEVEL 133 MEQ/L (136-145); WHITE BLOOD COUNT 11.9 10^3/uL (4.0-10.0)
[2022-05-24 08:00] VITALS: BP 115/79
[2022-05-24 08:19] LABS: INR 1.14
[2022-05-24 08:20] LABS: PARTIAL THROMBOPLASTIN TIME 33.2 SECONDS (25.9-37.0)
[2022-05-24 08:23] LABS: ALBUMIN 3.4 GM/DL (3.2-5.2); ALT/SGPT 11 U/L (12-78); BILIRUBIN,TOTAL 0.8 MG/DL (0.2-1.0); NT-PRO BNP 4722 PG/ML (<125); TOTAL PROTEIN 6.6 GM/DL (6.4-8.2)
[2022-05-24] MEDS ORDERED: ENOXAPARIN 40MG/0.4ML SYRINGE (J1650 PER 10MG) SC SCH (09:00)
[2022-05-24] MEDS: DULoxetine 30MG CAPSULE (CYMBALTA) PO SCH (09:55)
[2022-05-24] MEDS: GABAPENTIN 400MG CAP PO SCH ×3 (09:55→21:00)
[2022-05-24] MEDS: DOXYCYCLINE HYCLATE 100MG TABLET PO SCH ×2 (09:55→21:00)
[2022-05-24] MEDS: OMEPRAZOLE 20MG CAP PO SCH (09:55)
[2022-05-24] MEDS ORDERED: ENOXAPARIN 60MG/0.6ML SYRINGE (J1650 PER 10MG) SC ONE (11:00)
[2022-05-24 11:20] LABS: AMPHETAMINES LEVEL URINE NEGATIVE (NEGATIVE); BARBITURATES URINE NEGATIVE (NEGATIVE); BENZODIAZEPINES URINE NEGATIVE (NEGATIVE); CANNABINOIDS URINE POSITIVE (NEGATIVE); COCAINE METABOLITE URINE NEGATIVE (NEGATIVE); METHADONE URINE NEGATIVE (NEGATIVE); OPIATES URINE NEGATIVE (NEGATIVE); PHENCYCLIDINE URINE NEGATIVE (NEGATIVE)
[2022-05-24] MEDS: METOPROLOL TART 25 MG TABLET PO SCH ×2 (12:38→21:00)
[2022-05-24 16:03] VITALS: BP 113/72
[2022-05-24] MEDS ORDERED: VANCOMYCIN HCL 1,000 MG, VIAL MATE ADAPTER 1 EACH in NS 250 ML IV SCH (16:20)
[2022-05-24] MEDS: NS 1,000 ML IV SCH (17:50)
[2022-05-24] MEDS: cefTRIAXone SOD 1 GM in D5W MINI-BAG PLUS 50 ML IV SCH (17:51)
[2022-05-24] MEDS ORDERED: VANCOMYCIN HCL 1,000 MG, VIAL MATE ADAPTER 1 EACH in NS 250 ML IV ONE ×2 (19:00→20:00)
[2022-05-24 19:07] VITALS: BP 99/65
[2022-05-24 20:00] VITALS: BP 119/73
[2022-05-24] MEDS: ENOXAPARIN 100MG/1ML SYRINGE (J1650 PER 10MG) SC SCH (21:00)
[2022-05-25] VITALS: BP 124/79
[2022-05-25] MEDS: IPRATROPIUM 0.5MG/ALBUTEROL 2.5MG INH SOL UD 3ML (DUONEB) NEB SCH ×4 (02:00→21:09)
[2022-05-25] MEDS: VANCOMYCIN HCL 750 MG, VIAL MATE ADAPTER 1 EACH in D5W 250 ML IV SCH ×4 (02:57→18:36)
[2022-05-25 04:00] VITALS: BP 124/83
[2022-05-25] MEDS: NS 1,000 ML IV SCH (04:17)
[2022-05-25 06:00] LABS: HEMATOCRIT 36.9 % (42.0-52.0); HEMOGLOBIN 12.3 g/dl (13.5-17.5); MEAN CORPUSCULAR HEMOGLOBIN 30.6 pg (27.0-33.0); MEAN CORPUSCULAR HGB CONC 33.3 g/dl (32.0-36.5); MEAN CORPUSCULAR VOLUME 91.8 fl (80.0-96.0); PLATELET COUNT, AUTOMATED 186 10^3/uL (150-450); RED BLOOD COUNT 4.02 10^6/uL (4.30-6.10); WHITE BLOOD COUNT 9.3 10^3/uL (4.0-10.0)
[2022-05-25 06:47] LABS: ALBUMIN 3.2 GM/DL (3.2-5.2); ALT/SGPT 12 U/L (12-78); BILIRUBIN,TOTAL 0.7 MG/DL (0.2-1.0); BLOOD UREA NITROGEN 13 MG/DL (7-18); CALCIUM LEVEL 9.3 MG/DL (8.8-10.2); CARBON DIOXIDE LEVEL 28 MEQ/L (21-32); CHLORIDE LEVEL 101 MEQ/L (98-107); CREATININE FOR GFR 0.76 MG/DL (0.70-1.30); GLOMERULAR FILTRATION RATE > 60.0 (>49); GLUCOSE, FASTING 79 MG/DL (70-100); POTASSIUM SERUM 4.5 MEQ/L (3.5-5.1); SODIUM LEVEL 132 MEQ/L (136-145); TOTAL PROTEIN 6.3 GM/DL (6.4-8.2)
[2022-05-25] MEDS: INSULIN LISPRO (NovoLOG) PER UNIT SC SCH ×4 (07:30→20:25)
[2022-05-25 07:31] VITALS: BP 128/74
[2022-05-25] MEDS: ENOXAPARIN 100MG/1ML SYRINGE (J1650 PER 10MG) SC SCH ×2 (08:31→20:24)
[2022-05-25] MEDS: METOPROLOL TART 25 MG TABLET PO SCH ×2 (08:31→20:24)
[2022-05-25] MEDS: DULoxetine 30MG CAPSULE (CYMBALTA) PO SCH (08:31)
[2022-05-25] MEDS: OMEPRAZOLE 20MG CAP PO SCH (08:31)
[2022-05-25] MEDS: GABAPENTIN 400MG CAP PO SCH ×3 (08:31→20:24)
[2022-05-25] MEDS: DOXYCYCLINE HYCLATE 100MG TABLET PO SCH ×2 (08:31→20:24)
[2022-05-25 10:08] LABS: MAGNESIUM LEVEL 1.4 MG/DL (1.8-2.4)
[2022-05-25 12:00] VITALS: BP 112/71
[2022-05-25] MEDS ORDERED: MAGNESIUM OXIDE 400MG TAB (MAG-OX) PO ONE (13:40)
[2022-05-25 16:00] VITALS: BP_SYST 132; BP_SYST 99; BP_DIAS 58; BP_DIAS 78
[2022-05-25 20:00] VITALS: BP 114/64
[2022-05-25] MEDS: cefTRIAXone SOD 1 GM in D5W MINI-BAG PLUS 50 ML IV SCH (20:24)
[2022-05-26] VITALS: BP 103/61
[2022-05-26] MEDS: IPRATROPIUM 0.5MG/ALBUTEROL 2.5MG INH SOL UD 3ML (DUONEB) NEB SCH ×2 (01:28→06:58)
[2022-05-26] MEDS: VANCOMYCIN HCL 750 MG, VIAL MATE ADAPTER 1 EACH in D5W 250 ML IV SCH ×4 (02:41→16:42)
[2022-05-26] MEDS: ACETAMINOPHEN TAB 650MG DOSE (2X325MG) PO PRN (02:48)
[2022-05-26 04:00] VITALS: BP 126/77
[2022-05-26 04:02] LABS: HEMOGLOBIN 12.2 g/dl (13.5-17.5); MEAN CORPUSCULAR HEMOGLOBIN 31.2 pg (27.0-33.0); MEAN CORPUSCULAR HGB CONC 33.9 g/dl (32.0-36.5); MEAN CORPUSCULAR VOLUME 92.1 fl (80.0-96.0); PLATELET COUNT, AUTOMATED 187 10^3/uL (150-450); RED BLOOD COUNT 3.91 10^6/uL (4.30-6.10); WHITE BLOOD COUNT 7.4 10^3/uL (4.0-10.0)
[2022-05-26 04:30] LABS: ALBUMIN 3.2 GM/DL (3.2-5.2); ALT/SGPT 13 U/L (12-78); BILIRUBIN,TOTAL 0.4 MG/DL (0.2-1.0); BLOOD UREA NITROGEN 13 MG/DL (7-18); CALCIUM LEVEL 8.9 MG/DL (8.8-10.2); CARBON DIOXIDE LEVEL 28 MEQ/L (21-32); CHLORIDE LEVEL 99 MEQ/L (98-107); CREATININE FOR GFR 0.72 MG/DL (0.70-1.30); GLOMERULAR FILTRATION RATE > 60.0 (>49); GLUCOSE, FASTING 100 MG/DL (70-100); MAGNESIUM LEVEL 1.3 MG/DL (1.8-2.4); SODIUM LEVEL 134 MEQ/L (136-145); TOTAL PROTEIN 6.2 GM/DL (6.4-8.2)
[2022-05-26] MEDS: INSULIN LISPRO (NovoLOG) PER UNIT SC SCH ×4 (07:30→20:35)
[2022-05-26 08:00] VITALS: BP 106/74
[2022-05-26] MEDS ORDERED: MAG SULF 1GM/100ML (MAG RUN) 1 GM in IV 1 EA IV ONE (08:00)
[2022-05-26] MEDS: METOPROLOL TART 25 MG TABLET PO SCH ×2 (09:00→20:36)
[2022-05-26] MEDS: DULoxetine 30MG CAPSULE (CYMBALTA) PO SCH (09:15)
[2022-05-26] MEDS: ENOXAPARIN 100MG/1ML SYRINGE (J1650 PER 10MG) SC SCH (09:15)
[2022-05-26] MEDS: OMEPRAZOLE 20MG CAP PO SCH (09:15)
[2022-05-26] MEDS: DOXYCYCLINE HYCLATE 100MG TABLET PO SCH ×2 (09:16→20:35)
[2022-05-26] MEDS: GABAPENTIN 400MG CAP PO SCH ×3 (09:16→20:35)
[2022-05-26 13:42] VITALS: BP 110/64
[2022-05-26 16:00] VITALS: BP 105/70
[2022-05-26] MEDS: cefTRIAXone SOD 1 GM in D5W MINI-BAG PLUS 50 ML IV SCH (18:12)
[2022-05-26 20:00] VITALS: BP 99/70
[2022-05-26] MEDS: APIXABAN 5 MG TAB (ELIQUIS) PO SCH (20:35)
[2022-05-27 00:08] VITALS: BP 104/80
[2022-05-27] MEDS: VANCOMYCIN HCL 750 MG, VIAL MATE ADAPTER 1 EACH in D5W 250 ML IV SCH ×2 (02:07→03:37)
[2022-05-27 04:00] VITALS: BP 112/73
[2022-05-27 04:26] LABS: HEMATOCRIT 36.1 % (42.0-52.0); HEMOGLOBIN 11.9 g/dl (13.5-17.5); MEAN CORPUSCULAR HEMOGLOBIN 30.4 pg (27.0-33.0); MEAN CORPUSCULAR VOLUME 92.1 fl (80.0-96.0); PLATELET COUNT, AUTOMATED 203 10^3/uL (150-450); RED BLOOD COUNT 3.92 10^6/uL (4.30-6.10); WHITE BLOOD COUNT 6.3 10^3/uL (4.0-10.0)
[2022-05-27 05:05] LABS: ALBUMIN 3.1 GM/DL (3.2-5.2); ALT/SGPT 13 U/L (12-78); BILIRUBIN,TOTAL 0.5 MG/DL (0.2-1.0); BLOOD UREA NITROGEN 10 MG/DL (7-18); CARBON DIOXIDE LEVEL 29 MEQ/L (21-32); CHLORIDE LEVEL 99 MEQ/L (98-107); CREATININE FOR GFR 0.76 MG/DL (0.70-1.30); GLOMERULAR FILTRATION RATE > 60.0 (>49); GLUCOSE, FASTING 103 MG/DL (70-100); MAGNESIUM LEVEL 1.5 MG/DL (1.8-2.4); SODIUM LEVEL 132 MEQ/L (136-145); TOTAL PROTEIN 6.3 GM/DL (6.4-8.2)
[2022-05-27] MEDS: MAG SULF 1GM/100ML (MAG RUN) 1 GM in IV 1 EA IV SCH ×2 (05:52→07:17)
[2022-05-27] MEDS ORDERED: MAG SULF 1GM/100ML (MAG RUN) 1 GM in IV 1 EA IV ONE (07:15)
[2022-05-27] MEDS: INSULIN LISPRO (NovoLOG) PER UNIT SC SCH ×4 (07:30→21:00)
[2022-05-27 08:00] VITALS: BP 100/73
[2022-05-27] MEDS: METOPROLOL TART 25 MG TABLET PO SCH ×2 (08:38→21:00)
[2022-05-27] MEDS: DOXYCYCLINE HYCLATE 100MG TABLET PO SCH ×2 (09:30→21:26)
[2022-05-27] MEDS: GABAPENTIN 400MG CAP PO SCH ×3 (09:30→21:25)
[2022-05-27] MEDS: APIXABAN 5 MG TAB (ELIQUIS) PO SCH ×2 (09:30→21:26)
[2022-05-27] MEDS: DULoxetine 30MG CAPSULE (CYMBALTA) PO SCH (09:30)
[2022-05-27] MEDS: OMEPRAZOLE 20MG CAP PO SCH (09:30)
[2022-05-27 18:05] VITALS: BP 110/79
[2022-05-27] MEDS: cefTRIAXone SOD 1 GM in D5W MINI-BAG PLUS 50 ML IV SCH (18:26)
[2022-05-27 21:16] VITALS: BP 101/66
[2022-05-28 06:00] VITALS: BP 110/82
[2022-05-28 06:19] LABS: HEMATOCRIT 36.1 % (42.0-52.0); HEMOGLOBIN 12.3 g/dl (13.5-17.5); MEAN CORPUSCULAR HEMOGLOBIN 30.8 pg (27.0-33.0); MEAN CORPUSCULAR HGB CONC 34.1 g/dl (32.0-36.5); MEAN CORPUSCULAR VOLUME 90.5 fl (80.0-96.0); PLATELET COUNT, AUTOMATED 209 10^3/uL (150-450); RED BLOOD COUNT 3.99 10^6/uL (4.30-6.10); WHITE BLOOD COUNT 6.2 10^3/uL (4.0-10.0)
[2022-05-28 06:59] LABS: ALBUMIN 3.2 GM/DL (3.2-5.2); ALT/SGPT 14 U/L (12-78); BILIRUBIN,TOTAL 0.5 MG/DL (0.2-1.0); BLOOD UREA NITROGEN 13 MG/DL (7-18); CARBON DIOXIDE LEVEL 30 MEQ/L (21-32); CHLORIDE LEVEL 99 MEQ/L (98-107); CREATININE FOR GFR 0.71 MG/DL (0.70-1.30); GLOMERULAR FILTRATION RATE > 60.0 (>49); GLUCOSE, FASTING 97 MG/DL (70-100); MAGNESIUM LEVEL 1.6 MG/DL (1.8-2.4); POTASSIUM SERUM 4.2 MEQ/L (3.5-5.1); SODIUM LEVEL 134 MEQ/L (136-145); TOTAL PROTEIN 6.5 GM/DL (6.4-8.2)
[2022-05-28] MEDS: INSULIN LISPRO (NovoLOG) PER UNIT SC SCH ×4 (07:30→21:00)
[2022-05-28] MEDS: DULoxetine 30MG CAPSULE (CYMBALTA) PO SCH (09:11)
[2022-05-28] MEDS: DOXYCYCLINE HYCLATE 100MG TABLET PO SCH (09:11)
[2022-05-28] MEDS: APIXABAN 5 MG TAB (ELIQUIS) PO SCH ×2 (09:11→21:46)
[2022-05-28] MEDS: METOPROLOL TART 25 MG TABLET PO SCH ×2 (09:11→21:00)
[2022-05-28] MEDS: OMEPRAZOLE 20MG CAP PO SCH (09:11)
[2022-05-28] MEDS: GABAPENTIN 400MG CAP PO SCH ×3 (09:11→21:46)
[2022-05-28] MEDS: ACETAMINOPHEN TAB 650MG DOSE (2X325MG) PO PRN (17:12)
[2022-05-28 21:51] VITALS: BP 100/57
[2022-05-29 06:31] VITALS: BP 117/91
[2022-05-29 07:00] LABS: HEMATOCRIT 40.3 % (42.0-52.0); HEMOGLOBIN 13.4 g/dl (13.5-17.5); MEAN CORPUSCULAR HEMOGLOBIN 30.2 pg (27.0-33.0); MEAN CORPUSCULAR HGB CONC 33.3 g/dl (32.0-36.5); PLATELET COUNT, AUTOMATED 239 10^3/uL (150-450); RED BLOOD COUNT 4.43 10^6/uL (4.30-6.10); WHITE BLOOD COUNT 6.4 10^3/uL (4.0-10.0)
[2022-05-29] MEDS: INSULIN LISPRO (NovoLOG) PER UNIT SC SCH ×4 (07:30→21:00)
[2022-05-29 07:49] LABS: ALBUMIN 3.6 GM/DL (3.2-5.2); ALT/SGPT 22 U/L (12-78); BILIRUBIN,TOTAL 0.5 MG/DL (0.2-1.0); BLOOD UREA NITROGEN 14 MG/DL (7-18); CALCIUM LEVEL 9.6 MG/DL (8.8-10.2); CARBON DIOXIDE LEVEL 31 MEQ/L (21-32); CHLORIDE LEVEL 97 MEQ/L (98-107); CREATININE FOR GFR 0.72 MG/DL (0.70-1.30); GLOMERULAR FILTRATION RATE > 60.0 (>49); GLUCOSE, FASTING 99 MG/DL (70-100); MAGNESIUM LEVEL 1.5 MG/DL (1.8-2.4); POTASSIUM SERUM 5.1 MEQ/L (3.5-5.1); SODIUM LEVEL 134 MEQ/L (136-145); TOTAL PROTEIN 7.1 GM/DL (6.4-8.2)
[2022-05-29] MEDS: DULoxetine 30MG CAPSULE (CYMBALTA) PO SCH (09:06)
[2022-05-29] MEDS: METOPROLOL TART 25 MG TABLET PO SCH ×2 (09:06→21:08)
[2022-05-29] MEDS: GABAPENTIN 400MG CAP PO SCH ×3 (09:06→21:06)
[2022-05-29] MEDS: OMEPRAZOLE 20MG CAP PO SCH (09:06)
[2022-05-29] MEDS: APIXABAN 5 MG TAB (ELIQUIS) PO SCH ×2 (09:06→21:06)
[2022-05-29 20:07] LABS: VITAMIN B1 LEVEL WHOLE BLOOD 114.7 nmol/L (66.5-200.0)
[2022-05-30 06:14] VITALS: BP 114/78
[2022-05-30] MEDS: METOPROLOL TART 25 MG TABLET PO SCH ×2 (07:56→20:07)
[2022-05-30] MEDS: INSULIN LISPRO (NovoLOG) PER UNIT SC SCH ×4 (07:56→20:07)
[2022-05-30] MEDS: GABAPENTIN 400MG CAP PO SCH ×3 (07:56→20:06)
[2022-05-30] MEDS: APIXABAN 5 MG TAB (ELIQUIS) PO SCH ×2 (07:56→20:06)
[2022-05-30] MEDS: OMEPRAZOLE 20MG CAP PO SCH (07:56)
[2022-05-30] MEDS: DULoxetine 30MG CAPSULE (CYMBALTA) PO SCH (07:57)
[2022-05-30] MEDS: ACETAMINOPHEN TAB 650MG DOSE (2X325MG) PO PRN (20:06)
[2022-05-31 06:00] VITALS: BP 95/65
[2022-05-31] MEDS: GABAPENTIN 400MG CAP PO SCH ×2 (08:42→15:26)
[2022-05-31] MEDS: DULoxetine 30MG CAPSULE (CYMBALTA) PO SCH (08:42)
[2022-05-31] MEDS: INSULIN LISPRO (NovoLOG) PER UNIT SC SCH ×2 (08:42→12:00)
[2022-05-31] MEDS: OMEPRAZOLE 20MG CAP PO SCH (08:42)
[2022-05-31 08:48] VITALS: BP 100/80
[2022-05-31] MEDS: METOPROLOL TART 25 MG TABLET PO SCH (08:48)
[2022-05-31] MEDS: APIXABAN 5 MG TAB (ELIQUIS) PO SCH (08:48)
[2022-05-31 14:13] LABS: BLOOD UREA NITROGEN 17 MG/DL (7-18); CALCIUM LEVEL 9.5 MG/DL (8.8-10.2); CARBON DIOXIDE LEVEL 30 MEQ/L (21-32); CHLORIDE LEVEL 98 MEQ/L (98-107); CREATININE FOR GFR 0.71 MG/DL (0.70-1.30); GLOMERULAR FILTRATION RATE > 60.0 (>49); GLUCOSE, FASTING 125 MG/DL (70-100); POTASSIUM SERUM 4.8 MEQ/L (3.5-5.1); SODIUM LEVEL 131 MEQ/L (136-145)
[2022-05-31] MEDS ORDERED: METO1TAB87 PO ×2 (14:54→15:07)
[2022-05-31] MEDS ORDERED: ELIQ5TAB PO ×2 (14:54→15:07)
== END 2022-05-31 16:15 | disposition home health service (06) | DRG 71 ==
LOC: EDBD 16:31 → M ED 16:31 → M ED INP 20:13 → ENRESERV 21:50 → M PCU 22:28 → M MS5PR 05-27 18:08
PROVIDERS: ADMIT Internal Medicine; ATTEND Family Medicine
PROC: B246ZZZ Ultrasonography of Right and Left Heart (ICD-10-PCS; principal; 2022-05-24)
DX: G93.41 Metabolic encephalopathy (principal); E87.1 Hypo-osmolality and hyponatremia; J98.11 Atelectasis; R29.6 Repeated falls; E11.42 Type 2 diabetes mellitus with diabetic polyneuropathy; F32.A Depression, unspecified; Z20.822 Contact with and (suspected) exposure to COVID-19; F17.210 Nicotine dependence, cigarettes, uncomplicated; Z79.84 Long term (current) use of oral hypoglycemic drugs; Z79.899 Other long term (current) drug therapy; Z88.8 Allergy status to other drugs, medicaments and biological substances; I48.91 Unspecified atrial fibrillation; I35.0 Nonrheumatic aortic (valve) stenosis; B95.8 Unspecified staphylococcus as the cause of diseases classified elsewhere

== ENCOUNTER 2022-06-14 16:58 | Emergency (ER) | payer MEDICARE, MEDICAID ==
[~2022-06-14] VITALS: Ht 170.2 cm; Wt 109.0 kg
[~2022-06-14 16:58] MED LIST changes: +ELIQ5TAB PO; +GLIP10TA18 PO; +LISI2.5T9 PO; +METF10004 PO; +METO1TAB87 PO; +MIRT-10 PO; +MONT10TA97 PO; +OMEP-173 PO; +med rec comment
[2022-06-14] MEDS ORDERED: ONDANSETRON 4MG 2ML VIAL IV ONE (17:50)
[2022-06-14] MEDS ORDERED: MORPHINE 4 MG/ML 1ML VIAL/SYRINGE IV ONE ×2 (17:50→22:35)
[2022-06-14 18:59] LABS: HEMATOCRIT 38.8 % (42.0-52.0); HEMOGLOBIN 13.3 g/dl (13.5-17.5); MEAN CORPUSCULAR HEMOGLOBIN 30.8 pg (27.0-33.0); MEAN CORPUSCULAR HGB CONC 34.3 g/dl (32.0-36.5); MEAN CORPUSCULAR VOLUME 89.8 fl (80.0-96.0); PLATELET COUNT, AUTOMATED 241 10^3/uL (150-450); RED BLOOD COUNT 4.32 10^6/uL (4.30-6.10); WHITE BLOOD COUNT 10.2 10^3/uL (4.0-10.0)
[2022-06-14 19:32] LABS: BLOOD UREA NITROGEN 17 MG/DL (7-18); CALCIUM LEVEL 9.5 MG/DL (8.8-10.2); CARBON DIOXIDE LEVEL 27 MEQ/L (21-32); CHLORIDE LEVEL 98 MEQ/L (98-107); CREATININE FOR GFR 0.76 MG/DL (0.70-1.30); GLOMERULAR FILTRATION RATE > 60.0 (>49); GLUCOSE, FASTING 119 MG/DL (70-100); POTASSIUM SERUM 4.1 MEQ/L (3.5-5.1); SODIUM LEVEL 131 MEQ/L (136-145)
[2022-06-14 21:34] LABS: RSV AMPLIFICATION NEGATIVE (NEGATIVE)
[2022-06-14 22:44] VITALS: BP 110/54
== END 2022-06-14 23:23 | disposition short-term general hospital (02) ==
LOC: M ED 16:58
DX: S22.42XA Multiple fractures of ribs, left side, initial encounter for closed fracture (principal); S22.081A Stable burst fracture of T11-T12 vertebra, initial encounter for closed fracture; S32.012A Unstable burst fracture of first lumbar vertebra, initial encounter for closed fracture; M43.06 Spondylolysis, lumbar region; M43.16 Spondylolisthesis, lumbar region; M51.26 Other intervertebral disc displacement, lumbar region; K57.30 Diverticulosis of large intestine without perforation or abscess without bleeding; W18.30XA Fall on same level, unspecified, initial encounter; Y92.099 Unspecified place in other non-institutional residence as the place of occurrence of the external cause; I51.9 Heart disease, unspecified; E11.9 Type 2 diabetes mellitus without complications; I10 Essential (primary) hypertension; J44.9 Chronic obstructive pulmonary disease, unspecified; Z79.4 Long term (current) use of insulin; Z79.84 Long term (current) use of oral hypoglycemic drugs; Z79.01 Long term (current) use of anticoagulants; Z79.899 Other long term (current) drug therapy; Z88.8 Allergy status to other drugs, medicaments and biological substances
CPT/HCPCS: 71101; 72131; 74176; 80048; 85027; 87631; 96374; 96375; 96376; 99284; J2270; J2405

== ENCOUNTER 2022-08-05 14:58 | Emergency (ER) | payer MEDICARE, MEDICAID ==
[~2022-08-05] VITALS: Ht 177.8 cm; Wt 109.1 kg
[2022-08-05 15:46] VITALS: BP 119/58
== END 2022-08-05 16:44 | disposition home or self-care (01) ==
LOC: EDBD 14:58 → M ED 14:58
DX: F43.0 Acute stress reaction (principal); E11.9 Type 2 diabetes mellitus without complications; E11.40 Type 2 diabetes mellitus with diabetic neuropathy, unspecified; F32.9 Major depressive disorder, single episode, unspecified; F17.200 Nicotine dependence, unspecified, uncomplicated; Z79.84 Long term (current) use of oral hypoglycemic drugs; Z79.899 Other long term (current) drug therapy; Z88.8 Allergy status to other drugs, medicaments and biological substances

== ENCOUNTER 2022-12-17 14:59 | Inpatient (IN) | payer MEDICARE, MEDICAID ==
[~2022-12-17] VITALS: Ht 170.2 cm; Wt 100.0 kg
[2022-12-17] MEDS ORDERED: NS 500 ML IV ONE (15:05)
[2022-12-17] MEDS ORDERED: BOOSTRIX/ADACEL VACCINE (DIPHTH/PERTUSS/ACELL/TETANUS) 0.5ML SYR IM.IMMUN ONE (15:05)
[2022-12-17] MEDS: MORPHINE 2 MG/ML 1ML VIAL IV PRN ×4 (15:27→17:54)
[2022-12-17] MEDS ORDERED: ISOVUE-370 76% 100ML VIAL As Ordered ONE (15:29)
[2022-12-17 15:41] LABS: BASO # 0.1 10^3/uL (0.0-0.2); BASO % 1.2 % (0.0-1.0); EOS # 0.3 10^3/uL (0.0-0.5); EOS % 3.3 % (0.0-3.0); HEMATOCRIT 42.9 % (42.0-52.0); HEMOGLOBIN 14.8 g/dl (13.5-17.5); LYMPH # 3.2 10^3/uL (1.5-5.0); LYMPH % 32.5 % (24.0-44.0); MEAN CORPUSCULAR HEMOGLOBIN 31.1 pg (27.0-33.0); MEAN CORPUSCULAR HGB CONC 34.5 g/dl (32.0-36.5); MEAN CORPUSCULAR VOLUME 90.1 fl (80.0-96.0); MONO # 0.9 10^3/uL (0.0-0.8); MONO % 8.8 % (2.0-8.0); NEUTROPHILS # 5.3 10^3/uL (1.5-8.5); NEUTROPHILS % 53.7 % (36.0-66.0); PLATELET COUNT, AUTOMATED 193 10^3/uL (150-450); RED BLOOD COUNT 4.76 10^6/uL (4.30-6.10); WHITE BLOOD COUNT 9.9 10^3/uL (4.0-10.0)
[2022-12-17 15:53] LABS: INR 1.01; PARTIAL THROMBOPLASTIN TIME 27.8 SECONDS (24.8-34.2); PROTHROMBIN TIME 13.5 SECONDS (12.5-14.5)
[2022-12-17 16:09] LABS: LIPASE 43 U/L (12-53)
[2022-12-17 16:10] LABS: AMYLASE 79 U/L (30-118)
[2022-12-17 16:12] LABS: ALBUMIN 3.9 G/DL (3.2-5.2); ALKALINE PHOSPHATASE 59 U/L (46-116); ALT/SGPT 21 U/L (7.0-40); AST/SGOT 29 U/L (<34); BILIRUBIN,DIRECT < 0.1 MG/DL (<0.4); BILIRUBIN,TOTAL 0.3 MG/DL (0.3-1.2); BLOOD UREA NITROGEN 21 MG/DL (9-23); CALCIUM LEVEL 8.8 MG/DL (8.3-10.6); CARBON DIOXIDE LEVEL 25 MMOL/L (20-31); CHLORIDE LEVEL 98 MMOL/L (98-107); CK-MB VALUE MASS 2.2 NG/ML (<3.6); CREATININE FOR GFR 0.67 MG/DL (0.70-1.30); GLOMERULAR FILTRATION RATE > 60.0 (>49); GLUCOSE, FASTING 132 MG/DL (74-106); POTASSIUM SERUM 4.3 MMOL/L (3.5-5.1); SODIUM LEVEL 133 MMOL/L (136-145)
[2022-12-17 16:17] LABS: RSV AMPLIFICATION NEGATIVE (NEGATIVE)
[2022-12-17 16:34] LABS: CPK CREATINE PHOSPHOKINASE 104 U/L (46-171); MB/CK RELATIVE INDEX 2.11 (< OR =4)
[2022-12-17 17:33] LABS: APPEARANCE, URINE CLEAR (CLEAR); BACTERIA, URINE AUTO NEGATIVE (NEGATIVE); BILIRUBIN, URINE AUTO NEGATIVE (NEGATIVE); BLOOD, URINE BLOOD NEGATIVE (NEGATIVE); COLOR, URINE YELLOW (YELLOW); GLUCOSE, URINE (UA) AUTO NEGATIVE (NEGATIVE); KETONE, URINE AUTO NEGATIVE (NEGATIVE); LEUKOCYTE ESTERASE, URINE AUTO NEGATIVE (NEGATIVE); MUCUS, URINE SMALL (NEGATIVE); NITRITE, URINE AUTO NEGATIVE (NEGATIVE); PROTEIN, URINE AUTO NEGATIVE (NEGATIVE); RBC, URINE AUTO 0 /HPF (0-3); SPECIFIC GRAVITY URINE AUTO 1.046 (1.002-1.035); SQUAMOUS EPITHELIAL CELL UR AU 0 /HPF (0-6); UROBILINOGEN, URINE AUTO 0.2 mg/dL (0.0-2.0); WBC, URINE AUTO 0 /HPF (0-3)
[2022-12-17] MEDS: INSULIN LISPRO (NovoLOG) PER UNIT SC SCH (18:00)
[2022-12-17] MEDS ORDERED: MORPHINE 4 MG/ML 1ML VIAL IV PRN (18:30)
[2022-12-17] MEDS ORDERED: ONDANSETRON 4MG 2ML VIAL IV PRN (18:30)
[2022-12-17] MEDS ORDERED: INSULIN LISPRO (NovoLOG) PER UNIT SC SCH (18:40)
[2022-12-17] MEDS ORDERED: IPRATROPIUM 0.5MG/ALBUTEROL 2.5MG INH SOL UD 3ML (DUONEB) NEB PRN (18:40)
[2022-12-17] MEDS ORDERED: GLUCOSE 4GM CHEW TABLET PO PRN (18:40)
[2022-12-17] MEDS ORDERED: DEXTROSE 50% 50ML SYRINGE IV PRN (18:40)
[2022-12-17] MEDS ORDERED: GLUCAGON INJ 1MG VIAL SC PRN (18:40)
[2022-12-17] MEDS ORDERED: MORPHINE 2 MG/ML 1ML VIAL IV ONE (18:40)
[2022-12-17] MEDS ORDERED: HOME MED LIST COMPLETE! XX SCH (18:45)
[2022-12-17 21:25] LABS: HEMOGLOBIN A1c 5.4 % (4.0-6.0)
[2022-12-17] MEDS: PERCOCET 5MG/325MG TAB PO PRN (21:45)
[2022-12-17 22:21] VITALS: BP 132/74
[2022-12-17] MEDS: CelecoXIB (CeleBREX) 100 MG CAP PO SCH (22:51)
[2022-12-17] MEDS ORDERED: D5W/0.9% SODIUM CHLORIDE 1,000 ML IV SCH (23:30)
[2022-12-18] VITALS (9 sets, daily range): BP systolic 102–136; BP diastolic 65–98
[2022-12-18] MEDS: INSULIN LISPRO (NovoLOG) PER UNIT SC SCH ×5 (06:00→23:37)
[2022-12-18 06:55] LABS: BLOOD UREA NITROGEN 17 MG/DL (9-23); CALCIUM LEVEL 8.1 MG/DL (8.3-10.6); CARBON DIOXIDE LEVEL 27 MMOL/L (20-31); CHLORIDE LEVEL 102 MMOL/L (98-107); CREATININE FOR GFR 0.63 MG/DL (0.70-1.30); GLOMERULAR FILTRATION RATE > 60.0 (>49); GLUCOSE, FASTING 126 MG/DL (74-106); SODIUM LEVEL 133 MMOL/L (136-145)
[2022-12-18 07:06] LABS: BASO # 0.1 10^3/uL (0.0-0.2); BASO % 1.3 % (0.0-1.0); EOS # 0.2 10^3/uL (0.0-0.5); EOS % 2.7 % (0.0-3.0); HEMATOCRIT 35.1 % (42.0-52.0); LYMPH # 1.8 10^3/uL (1.5-5.0); LYMPH % 30.1 % (24.0-44.0); MEAN CORPUSCULAR HGB CONC 34.5 g/dl (32.0-36.5); MONO # 0.7 10^3/uL (0.0-0.8); MONO % 12.4 % (2.0-8.0); NEUTROPHILS # 3.2 10^3/uL (1.5-8.5); NEUTROPHILS % 53.2 % (36.0-66.0); PLATELET COUNT, AUTOMATED 143 10^3/uL (150-450)
[2022-12-18 07:07] LABS: HEMOGLOBIN 12.1 g/dl (13.5-17.5)
[2022-12-18] MEDS: LR 1,000 ML IV SCH ×5 (08:31→21:21)
[2022-12-18] MEDS: PERCOCET 5MG/325MG TAB PO PRN ×3 (08:31→13:46)
[2022-12-18] MEDS: CelecoXIB (CeleBREX) 100 MG CAP PO SCH ×2 (08:32→21:21)
[2022-12-18] MEDS: PANTOPRAZOLE 20 MG TAB PO SCH (08:32)
[2022-12-18] MEDS ORDERED: MIDAZOLAM INJ 2MG/2ML VIAL As Ordered ONE (10:13)
[2022-12-18] MEDS ORDERED: fentaNYL 100 MCG/2 ML INJECTION As Ordered ONE (10:13)
[2022-12-18] MEDS ORDERED: KETAMINE INJ 500MG/5ML VIAL As Ordered ONE (10:13)
[2022-12-18] MEDS ORDERED: ceFAZolin 2 GM/D5W 50 ML IV BAG As Ordered ONE (10:14)
[2022-12-18] MEDS ORDERED: ePHEDrine SULFATE 25 MG/5 ML(5MG/ML) SYRINGE As Ordered ONE (11:53)
[2022-12-18] MEDS ORDERED: PHENYLephrine 500MCG 5ML (100MCG/ML) SYRINGE As Ordered ONE (11:53)
[2022-12-18] MEDS ORDERED: fentaNYL 100 MCG/2 ML INJECTION IV PRN (12:05)
[2022-12-18] MEDS ORDERED: MEPERIDINE 25 MG/ML 1ML VIAL IV PRN (12:05)
[2022-12-18] MEDS ORDERED: ONDANSETRON 4MG 2ML VIAL IV PRN (12:05)
[2022-12-18] MEDS ORDERED: PHENYLEPHRINE 10MG/ML 1ML VIAL As Ordered ONE (12:08)
[2022-12-18] MEDS ORDERED: ePHEDrine SULFATE 25 MG/5 ML(5MG/ML) SYRINGE IV PRN (12:10)
[2022-12-18] MEDS: PHENYLephrine 500MCG 5ML (100MCG/ML) SYRINGE IV PRN ×3 (12:18→12:30)
[2022-12-18] MEDS: ACETAMINOPHEN TAB 650MG DOSE (2X325MG) PO PRN (15:52)
[2022-12-18] MEDS: MORPHINE 2 MG/ML 1ML VIAL IV PRN (17:59)
[2022-12-18] MEDS: ceFAZolin SOD 2 GM in IV 1 EA IV SCH (18:00)
[2022-12-18] MEDS ORDERED: METOPROLOL TART 12.5 MG PER 1/2 TAB PO PRN (20:25)
[2022-12-19 01:44] VITALS: BP 102/61
[2022-12-19] MEDS: ceFAZolin SOD 2 GM in IV 1 EA IV SCH (01:45)
[2022-12-19] MEDS: PERCOCET 5MG/325MG TAB PO PRN ×4 (02:03→21:19)
[2022-12-19] MEDS: LR 1,000 ML IV SCH ×2 (02:05→03:27)
[2022-12-19 05:37] VITALS: BP 127/72
[2022-12-19] MEDS: INSULIN LISPRO (NovoLOG) PER UNIT SC SCH ×4 (05:48→21:00)
[2022-12-19 06:32] LABS: HEMATOCRIT 29.2 % (42.0-52.0); MEAN CORPUSCULAR HEMOGLOBIN 30.5 pg (27.0-33.0); MEAN CORPUSCULAR HGB CONC 32.9 g/dl (32.0-36.5); MEAN CORPUSCULAR VOLUME 92.7 fl (80.0-96.0); PLATELET COUNT, AUTOMATED 107 10^3/uL (150-450); RED BLOOD COUNT 3.15 10^6/uL (4.30-6.10); WHITE BLOOD COUNT 5.9 10^3/uL (4.0-10.0)
[2022-12-19 06:33] LABS: HEMOGLOBIN 9.6 g/dl (13.5-17.5)
[2022-12-19 07:04] LABS: ALBUMIN 2.8 G/DL (3.2-5.2); ALKALINE PHOSPHATASE 42 U/L (46-116); ALT/SGPT 13 U/L (7.0-40); AST/SGOT 37 U/L (<34); BILIRUBIN,TOTAL 0.6 MG/DL (0.3-1.2); BLOOD UREA NITROGEN 16 MG/DL (9-23); CALCIUM LEVEL 8.1 MG/DL (8.3-10.6); CARBON DIOXIDE LEVEL 29 MMOL/L (20-31); CHLORIDE LEVEL 103 MMOL/L (98-107); CREATININE FOR GFR 0.62 MG/DL (0.70-1.30); GLOMERULAR FILTRATION RATE > 60.0 (>49); GLUCOSE, FASTING 87 MG/DL (74-106); POTASSIUM SERUM 3.9 MMOL/L (3.5-5.1); SODIUM LEVEL 135 MMOL/L (136-145); TOTAL PROTEIN 5.2 G/DL (5.7-8.2)
[2022-12-19] MEDS: PANTOPRAZOLE 20 MG TAB PO SCH (08:31)
[2022-12-19] MEDS: CelecoXIB (CeleBREX) 100 MG CAP PO SCH ×2 (08:31→21:18)
[2022-12-19 10:00] VITALS: BP 96/56
[2022-12-19 14:00] VITALS: BP 122/72
[2022-12-19 20:00] VITALS: BP 118/58
[2022-12-20] VITALS (7 sets, daily range): BP systolic 110–126; BP diastolic 48–76
[2022-12-20 05:43] LABS: HEMATOCRIT 25.1 % (42.0-52.0); HEMOGLOBIN 8.4 g/dl (13.5-17.5); MEAN CORPUSCULAR HEMOGLOBIN 30.7 pg (27.0-33.0); MEAN CORPUSCULAR HGB CONC 33.5 g/dl (32.0-36.5); MEAN CORPUSCULAR VOLUME 91.6 fl (80.0-96.0); PLATELET COUNT, AUTOMATED 102 10^3/uL (150-450); RED BLOOD COUNT 2.74 10^6/uL (4.30-6.10); WHITE BLOOD COUNT 6.4 10^3/uL (4.0-10.0)
[2022-12-20 06:03] LABS: ALBUMIN 2.6 G/DL (3.2-5.2); ALKALINE PHOSPHATASE 40 U/L (46-116); ALT/SGPT < 9 U/L (7.0-40); AST/SGOT 33 U/L (<34); BILIRUBIN,TOTAL 0.7 MG/DL (0.3-1.2); BLOOD UREA NITROGEN 12 MG/DL (9-23); CARBON DIOXIDE LEVEL 30 MMOL/L (20-31); CHLORIDE LEVEL 101 MMOL/L (98-107); GLOMERULAR FILTRATION RATE > 60.0 (>49); GLUCOSE, FASTING 97 MG/DL (74-106); POTASSIUM SERUM 4.2 MMOL/L (3.5-5.1); SODIUM LEVEL 136 MMOL/L (136-145)
[2022-12-20] MEDS: INSULIN LISPRO (NovoLOG) PER UNIT SC SCH ×4 (07:30→20:30)
[2022-12-20] MEDS: PERCOCET 5MG/325MG TAB PO PRN (07:39)
[2022-12-20] MEDS: PANTOPRAZOLE 20 MG TAB PO SCH (08:32)
[2022-12-20] MEDS: CelecoXIB (CeleBREX) 100 MG CAP PO SCH (08:33)
[2022-12-20] MEDS: DOCUSATE SODIUM 100MG CAPSULE PO SCH ×2 (09:00→20:12)
[2022-12-20] MEDS: MORPHINE 2 MG/ML 1ML VIAL IV PRN ×2 (11:18→20:11)
[2022-12-20 20:01] LABS: HEMATOCRIT 27.5 % (42.0-52.0); HEMOGLOBIN 9.3 g/dl (13.5-17.5); MEAN CORPUSCULAR HEMOGLOBIN 30.6 pg (27.0-33.0); MEAN CORPUSCULAR HGB CONC 33.8 g/dl (32.0-36.5); MEAN CORPUSCULAR VOLUME 90.5 fl (80.0-96.0); PLATELET COUNT, AUTOMATED 112 10^3/uL (150-450); RED BLOOD COUNT 3.04 10^6/uL (4.30-6.10); WHITE BLOOD COUNT 6.8 10^3/uL (4.0-10.0)
[2022-12-20] MEDS ORDERED: SENNA 8.6 MG TAB (SENOKOT) PO SCH (21:00)
[2022-12-21] MEDS: PERCOCET 5MG/325MG TAB PO PRN ×3 (01:03→21:23)
[2022-12-21 05:58] LABS: HEMATOCRIT 26.8 % (42.0-52.0); HEMOGLOBIN 9.1 g/dl (13.5-17.5); MEAN CORPUSCULAR HEMOGLOBIN 30.3 pg (27.0-33.0); MEAN CORPUSCULAR VOLUME 89.3 fl (80.0-96.0); PLATELET COUNT, AUTOMATED 119 10^3/uL (150-450); WHITE BLOOD COUNT 6.1 10^3/uL (4.0-10.0)
[2022-12-21 06:00] VITALS: BP 123/58
[2022-12-21 06:17] LABS: ALBUMIN 2.8 G/DL (3.2-5.2); ALKALINE PHOSPHATASE 42 U/L (46-116); ALT/SGPT 11 U/L (7.0-40); AST/SGOT 35 U/L (<34); BLOOD UREA NITROGEN 13 MG/DL (9-23); CALCIUM LEVEL 8.1 MG/DL (8.3-10.6); CARBON DIOXIDE LEVEL 27 MMOL/L (20-31); CHLORIDE LEVEL 101 MMOL/L (98-107); GLOMERULAR FILTRATION RATE > 60.0 (>49); GLUCOSE, FASTING 95 MG/DL (74-106); SODIUM LEVEL 134 MMOL/L (136-145); TOTAL PROTEIN 5.2 G/DL (5.7-8.2)
[2022-12-21] MEDS: INSULIN LISPRO (NovoLOG) PER UNIT SC SCH ×4 (07:30→21:00)
[2022-12-21] MEDS: PANTOPRAZOLE 20 MG TAB PO SCH (09:20)
[2022-12-21] MEDS: DOCUSATE SODIUM 100MG CAPSULE PO SCH (09:20)
[2022-12-21] MEDS: MIRALAX *UNIT DOSE* 17GM PACKET PO PRN (09:21)
[2022-12-21] MEDS: MORPHINE 2 MG/ML 1ML VIAL IV PRN ×2 (11:42→23:12)
[2022-12-21 12:00] LABS: HEMATOCRIT 28.5 % (42.0-52.0); HEMOGLOBIN 9.7 g/dl (13.5-17.5)
[2022-12-21] MEDS: SENOKOT S TAB PO SCH ×2 (12:28→21:22)
[2022-12-21 14:00] VITALS: BP 119/73
[2022-12-21] MEDS: HEPARIN SOD (PORCINE) 5000UNITS/ML 1ML VIAL/SYRINGE SQ SCH ×2 (15:04→21:22)
[2022-12-22] MEDS: HEPARIN SOD (PORCINE) 5000UNITS/ML 1ML VIAL/SYRINGE SQ SCH ×3 (05:07→21:11)
[2022-12-22] MEDS: PERCOCET 5MG/325MG TAB PO PRN ×3 (05:08→21:12)
[2022-12-22 06:00] VITALS: BP 108/63
[2022-12-22 06:28] LABS: HEMATOCRIT 27.6 % (42.0-52.0); HEMOGLOBIN 9.5 g/dl (13.5-17.5)
[2022-12-22] MEDS: INSULIN LISPRO (NovoLOG) PER UNIT SC SCH ×4 (07:30→21:00)
[2022-12-22] MEDS ORDERED: MOM 30ML SUSPENSION UDC PO ONE (08:05)
[2022-12-22] MEDS: MIRALAX *UNIT DOSE* 17GM PACKET PO PRN (09:05)
[2022-12-22] MEDS: SENOKOT S TAB PO SCH ×2 (09:05→20:40)
[2022-12-22] MEDS: PANTOPRAZOLE 20 MG TAB PO SCH (09:07)
[2022-12-22] MEDS: ACETAMINOPHEN TAB 650MG DOSE (2X325MG) PO PRN ×2 (12:33→16:37)
[2022-12-22 14:00] VITALS: BP 113/63
[2022-12-23 06:00] VITALS: BP 130/65
[2022-12-23] MEDS: HEPARIN SOD (PORCINE) 5000UNITS/ML 1ML VIAL/SYRINGE SQ SCH ×3 (06:31→21:04)
[2022-12-23] MEDS: PERCOCET 5MG/325MG TAB PO PRN ×4 (06:32→23:47)
[2022-12-23] MEDS: MIRALAX *UNIT DOSE* 17GM PACKET PO PRN (06:32)
[2022-12-23] MEDS: INSULIN LISPRO (NovoLOG) PER UNIT SC SCH ×5 (07:30→21:00)
[2022-12-23] MEDS: SENOKOT S TAB PO SCH ×2 (09:37→21:04)
[2022-12-23] MEDS: PANTOPRAZOLE 20 MG TAB PO SCH (09:37)
[2022-12-23] MEDS ORDERED: FLEET ENEMA PR PRN (10:10)
[2022-12-23] MEDS ORDERED: MOM 30ML SUSPENSION UDC PO ONE (10:10)
[2022-12-24] MEDS: MORPHINE 2 MG/ML 1ML VIAL IV PRN ×2 (00:32→23:09)
[2022-12-24 06:00] VITALS: BP 119/63
[2022-12-24] MEDS: HEPARIN SOD (PORCINE) 5000UNITS/ML 1ML VIAL/SYRINGE SQ SCH ×3 (06:05→20:57)
[2022-12-24 06:17] LABS: HEMATOCRIT 28.2 % (42.0-52.0); HEMOGLOBIN 9.4 g/dl (13.5-17.5); MEAN CORPUSCULAR HEMOGLOBIN 30.6 pg (27.0-33.0); MEAN CORPUSCULAR HGB CONC 33.3 g/dl (32.0-36.5); MEAN CORPUSCULAR VOLUME 91.9 fl (80.0-96.0); PLATELET COUNT, AUTOMATED 208 10^3/uL (150-450); RED BLOOD COUNT 3.07 10^6/uL (4.30-6.10); WHITE BLOOD COUNT 7.6 10^3/uL (4.0-10.0)
[2022-12-24] MEDS: INSULIN LISPRO (NovoLOG) PER UNIT SC SCH ×4 (07:30→20:17)
[2022-12-24] MEDS: PANTOPRAZOLE 20 MG TAB PO SCH (08:30)
[2022-12-24] MEDS: SENOKOT S TAB PO SCH ×2 (08:30→20:57)
[2022-12-24] MEDS: MIRALAX *UNIT DOSE* 17GM PACKET PO PRN (08:33)
[2022-12-24] MEDS: ACETAMINOPHEN TAB 650MG DOSE (2X325MG) PO PRN ×3 (08:34→18:49)
[2022-12-24] MEDS ORDERED: FLEET ENEMA PR ONE (09:00)
[2022-12-24] MEDS: PERCOCET 5MG/325MG TAB PO PRN (20:58)
[2022-12-25] MEDS: ACETAMINOPHEN TAB 650MG DOSE (2X325MG) PO PRN ×2 (02:43→18:34)
[2022-12-25] MEDS: HEPARIN SOD (PORCINE) 5000UNITS/ML 1ML VIAL/SYRINGE SQ SCH ×3 (05:45→21:36)
[2022-12-25 06:02] VITALS: BP 134/82
[2022-12-25] MEDS ORDERED: FLEET ENEMA PR ONE (08:30)
[2022-12-25] MEDS: PANTOPRAZOLE 20 MG TAB PO SCH (08:39)
[2022-12-25] MEDS: SENOKOT S TAB PO SCH ×2 (08:39→21:00)
[2022-12-25] MEDS: MIRALAX *UNIT DOSE* 17GM PACKET PO PRN (08:39)
[2022-12-25] MEDS: INSULIN LISPRO (NovoLOG) PER UNIT SC SCH ×4 (08:40→20:57)
[2022-12-25] MEDS: PERCOCET 5MG/325MG TAB PO PRN ×2 (09:36→21:37)
[2022-12-26 05:39] VITALS: BP 123/81
[2022-12-26] MEDS: HEPARIN SOD (PORCINE) 5000UNITS/ML 1ML VIAL/SYRINGE SQ SCH ×3 (05:52→21:46)
[2022-12-26] MEDS: INSULIN LISPRO (NovoLOG) PER UNIT SC SCH ×4 (07:30→20:43)
[2022-12-26] MEDS: ACETAMINOPHEN TAB 650MG DOSE (2X325MG) PO PRN ×2 (08:15→12:17)
[2022-12-26] MEDS: PANTOPRAZOLE 20 MG TAB PO SCH (08:15)
[2022-12-26] MEDS: SENOKOT S TAB PO SCH ×2 (08:15→20:43)
[2022-12-26] MEDS: PERCOCET 5MG/325MG TAB PO PRN ×2 (16:01→22:38)
[2022-12-27] MEDS: ACETAMINOPHEN TAB 650MG DOSE (2X325MG) PO PRN ×2 (00:17→09:30)
[2022-12-27] MEDS: HEPARIN SOD (PORCINE) 5000UNITS/ML 1ML VIAL/SYRINGE SQ SCH ×3 (05:37→21:49)
[2022-12-27 06:00] VITALS: BP 121/76
[2022-12-27] MEDS: PERCOCET 5MG/325MG TAB PO PRN ×4 (06:23→20:01)
[2022-12-27 07:13] LABS: HEMATOCRIT 30.3 % (42.0-52.0); MEAN CORPUSCULAR HEMOGLOBIN 30.4 pg (27.0-33.0); MEAN CORPUSCULAR VOLUME 92.1 fl (80.0-96.0); PLATELET COUNT, AUTOMATED 267 10^3/uL (150-450); RED BLOOD COUNT 3.29 10^6/uL (4.30-6.10); WHITE BLOOD COUNT 6.3 10^3/uL (4.0-10.0)
[2022-12-27] MEDS: PANTOPRAZOLE 20 MG TAB PO SCH (08:21)
[2022-12-27] MEDS: INSULIN LISPRO (NovoLOG) PER UNIT SC SCH ×4 (08:22→20:56)
[2022-12-27] MEDS: SENOKOT S TAB PO SCH ×2 (09:00→20:00)
[2022-12-28 05:30] VITALS: BP 121/71
[2022-12-28] MEDS: HEPARIN SOD (PORCINE) 5000UNITS/ML 1ML VIAL/SYRINGE SQ SCH ×3 (06:02→21:17)
[2022-12-28] MEDS: PERCOCET 5MG/325MG TAB PO PRN ×3 (07:29→21:17)
[2022-12-28] MEDS: INSULIN LISPRO (NovoLOG) PER UNIT SC SCH ×4 (07:30→21:00)
[2022-12-28] MEDS: PANTOPRAZOLE 20 MG TAB PO SCH (09:24)
[2022-12-28] MEDS: SENOKOT S TAB PO SCH ×2 (09:25→21:00)
[2022-12-28] MEDS: ACETAMINOPHEN TAB 650MG DOSE (2X325MG) PO PRN (17:25)
[2022-12-29 06:00] VITALS: BP 123/69
[2022-12-29] MEDS: HEPARIN SOD (PORCINE) 5000UNITS/ML 1ML VIAL/SYRINGE SQ SCH ×2 (06:13→13:23)
[2022-12-29] MEDS: INSULIN LISPRO (NovoLOG) PER UNIT SC SCH ×2 (07:30→11:34)
[2022-12-29] MEDS: SENOKOT S TAB PO SCH (08:00)
[2022-12-29] MEDS: PERCOCET 5MG/325MG TAB PO PRN ×2 (08:00→14:49)
[2022-12-29] MEDS: PANTOPRAZOLE 20 MG TAB PO SCH (08:05)
[2022-12-29] MEDS ORDERED: MIRA1POW3 PO (14:20)
[2022-12-29] MEDS ORDERED: SENN-52 PO (14:20)
[2022-12-29] MEDS ORDERED: XARE10TA PO (14:20)
[2022-12-29] MEDS ORDERED: PERC5TAB12 PO (14:20)
[2022-12-29] MEDS ORDERED: PANT20TA6 PO (14:20)
== END 2022-12-29 16:10 | disposition home health service (06) | DRG 493 ==
LOC: M ED 14:59 → M ED INP 18:26 → ENRESERV 20:55 → M MSPAV 22:08
PROVIDERS: ADMIT Surgery; ATTEND Internal Medicine Nephrology
PROC: 0PSC36Z Reposition Right Humeral Head with Intramedullary Internal Fixation Device, Percutaneous Approach (ICD-10-PCS; principal; 2022-12-18 09:30)
PROC: 30233N1 Transfusion of Nonautologous Red Blood Cells into Peripheral Vein, Percutaneous Approach (ICD-10-PCS; 2022-12-20)
DX: S72.141A Displaced intertrochanteric fracture of right femur, initial encounter for closed fracture (principal); D62 Acute posthemorrhagic anemia; E11.40 Type 2 diabetes mellitus with diabetic neuropathy, unspecified; F32.9 Major depressive disorder, single episode, unspecified; I71.40 Abdominal aortic aneurysm, without rupture, unspecified; J44.9 Chronic obstructive pulmonary disease, unspecified; I10 Essential (primary) hypertension; K21.9 Gastro-esophageal reflux disease without esophagitis; I48.0 Paroxysmal atrial fibrillation; V89.2XXA Person injured in unspecified motor-vehicle accident, traffic, initial encounter; I95.9 Hypotension, unspecified; G62.9 Polyneuropathy, unspecified; F17.200 Nicotine dependence, unspecified, uncomplicated; E66.9 Obesity, unspecified; Z91.128 Patient's intentional underdosing of medication regimen for other reason; Z88.8 Allergy status to other drugs, medicaments and biological substances; M19.90 Unspecified osteoarthritis, unspecified site

== ENCOUNTER → 2023-01-06 | Outpatient (CLI) | payer MEDICARE, MEDICAID ==
[~2023-01-06] MED LIST changes: +MIRA1POW3 PO; +PANT20TA6 PO; +PERC5TAB12 PO; +SENN-52 PO; +XARE10TA PO
== END ==
LOC: M SOG 08:17
PROVIDERS: ATTEND Physician Assistant
DX: Z48.89 Encounter for other specified surgical aftercare (principal); Z53.9 Procedure and treatment not carried out, unspecified reason

== ENCOUNTER → 2023-01-13 | Outpatient (CLI) | payer MEDICARE, MEDICAID | LOC: M SOG 13:07 | PROVIDERS: ATTEND Physician Assistant | DX: Z53.9 Procedure and treatment not carried out, unspecified reason (principal) ==

== ENCOUNTER 2023-04-07 22:24 | Inpatient (IN) | payer OTHER, MEDICAID ==
[~2023-04-07] VITALS: Ht 170.2 cm; Wt 97.9 kg
[~2023-04-07 22:24] MED LIST changes: -GABA-283 PO; +GABA-284 PO
[2023-04-07 23:13] LABS: VENOUS HCO3 24.6 MMOL/L (23.0-27.0); VENOUS PARTIAL PRESSURE O2 43.5 mmHg (30.0-50.0); VENOUS PH 7.365 UNITS (7.330-7.430); VENOUS STANDARD HCO3 23.1 MMOL/L; VENOUS TOTAL CO2 25.9 MMOL/L (24.0-28.0)
[2023-04-07 23:42] LABS: BASO # 0.1 10^3/uL (0.0-0.2); BASO % 0.5 % (0.0-1.0); EOS % 0.1 % (0.0-3.0); HEMATOCRIT 43.8 % (42.0-52.0); HEMOGLOBIN 15.5 g/dl (13.5-17.5); LYMPH # 1.1 10^3/uL (1.5-5.0); LYMPH % 5.9 % (24.0-44.0); MEAN CORPUSCULAR HEMOGLOBIN 29.9 pg (27.0-33.0); MEAN CORPUSCULAR HGB CONC 35.4 g/dl (32.0-36.5); MEAN CORPUSCULAR VOLUME 84.4 fl (80.0-96.0); MONO # 1.4 10^3/uL (0.0-0.8); MONO % 7.7 % (2.0-8.0); NEUTROPHILS # 15.4 10^3/uL (1.5-8.5); PLATELET COUNT, AUTOMATED 198 10^3/uL (150-450); RED BLOOD COUNT 5.19 10^6/uL (4.30-6.10); WHITE BLOOD COUNT 18.2 10^3/uL (4.0-10.0)
[2023-04-07 23:49] LABS: ALBUMIN 3.7 G/DL (3.2-5.2); ALKALINE PHOSPHATASE 74 U/L (46-116); ALT/SGPT 14 U/L (7.0-40); AST/SGOT 15 U/L (<34); BILIRUBIN,DIRECT 0.5 MG/DL (<0.4); BILIRUBIN,TOTAL 1.2 MG/DL (0.3-1.2); BLOOD UREA NITROGEN 26 MG/DL (9-23); CALCIUM LEVEL 9.8 MG/DL (8.3-10.6); CARBON DIOXIDE LEVEL 24 MMOL/L (20-31); CHLORIDE LEVEL 93 MMOL/L (98-107); CREATININE FOR GFR 0.62 MG/DL (0.70-1.30); GLOMERULAR FILTRATION RATE > 60.0 (>49); GLUCOSE, FASTING 133 MG/DL (74-106); POTASSIUM SERUM 3.7 MMOL/L (3.5-5.1); SODIUM LEVEL 130 MMOL/L (136-145); TOTAL PROTEIN 6.9 G/DL (5.7-8.2)
[2023-04-07 23:50] LABS: THYROID STIMULATING HORMONE 1.924 uIU/ML (0.55-4.78)
[2023-04-07 23:52] LABS: OSMOLALITY SERUM 276 MOSM/KG (280-301)
[2023-04-08] MEDS ORDERED: GLUCOSE 4GM CHEW TABLET PO PRN (01:40)
[2023-04-08] MEDS ORDERED: GLUCAGON INJ 1MG VIAL SC PRN (01:40)
[2023-04-08] MEDS ORDERED: MOM 30ML SUSPENSION UDC PO PRN (01:40)
[2023-04-08] MEDS ORDERED: ACETAMINOPHEN TAB 650MG DOSE (2X325MG) PO PRN (01:40)
[2023-04-08] MEDS ORDERED: DEXTROSE 50% 50ML SYRINGE IV PRN (01:40)
[2023-04-08 02:28] VITALS: BP 133/85; TEMP 97.9; O2SAT 88
[2023-04-08] MEDS ORDERED: MORPHINE 2 MG/ML 1ML VIAL IV ONE (03:00)
[2023-04-08] MEDS: LIDOCAINE 5% (LIDODERM) PATCH TD SCH (03:00)
[2023-04-08 05:22] VITALS: BP 160/94; TEMP 97.5; O2SAT 91
[2023-04-08 07:57] LABS: HEMATOCRIT 42.1 % (42.0-52.0); HEMOGLOBIN 14.8 g/dl (13.5-17.5); MEAN CORPUSCULAR HGB CONC 35.2 g/dl (32.0-36.5); MEAN CORPUSCULAR VOLUME 85.4 fl (80.0-96.0); PLATELET COUNT, AUTOMATED 166 10^3/uL (150-450); RED BLOOD COUNT 4.93 10^6/uL (4.30-6.10); WHITE BLOOD COUNT 11.5 10^3/uL (4.0-10.0)
[2023-04-08] MEDS ORDERED: BUDESONIDE 180MCG INHALER (PULMICORT FLEXHALER) INH SCH (08:00)
[2023-04-08 08:24] LABS: BLOOD UREA NITROGEN 22 MG/DL (9-23); CARBON DIOXIDE LEVEL 24 MMOL/L (20-31); CHLORIDE LEVEL 94 MMOL/L (98-107); GLOMERULAR FILTRATION RATE > 60.0 (>49); GLUCOSE, FASTING 116 MG/DL (74-106); POTASSIUM SERUM 3.8 MMOL/L (3.5-5.1); SODIUM LEVEL 130 MMOL/L (136-145)
[2023-04-08] MEDS: INSULIN LISPRO (NovoLOG) PER UNIT SC SCH ×4 (08:34→21:00)
[2023-04-08] MEDS ORDERED: MED REC IN PROGRESS XX SCH (08:50)
[2023-04-08] MEDS: ENOXAPARIN 40MG/0.4ML SYRINGE (J1650 PER 10MG) SC SCH (08:55)
[2023-04-08] MEDS: DOCUSATE SODIUM 100MG CAPSULE PO SCH ×2 (08:55→20:35)
[2023-04-08] MEDS ORDERED: LIDOCAINE 5% (LIDODERM) PATCH TD SCH (09:00)
[2023-04-08] MEDS ORDERED: HOME MED LIST COMPLETE! XX SCH (09:00)
[2023-04-08] MEDS ORDERED: IPRATROPIUM 0.5MG/ALBUTEROL 2.5MG INH SOL UD 3ML (DUONEB) NEB PRN (09:05)
[2023-04-08] MEDS ORDERED: methylPREDNISolone 125MG 2ML VIAL IV ONE (09:05)
[2023-04-08] MEDS ORDERED: PERCOCET 5MG/325MG TAB PO PRN (09:05)
[2023-04-08] MEDS ORDERED: predniSONE 20 MG TAB PO ONE (09:30)
[2023-04-08] MEDS ORDERED: PERCOCET 5MG/325MG TAB PO ONE ×2 (09:30→15:00)
[2023-04-08] MEDS ORDERED: KETOROLAC 30 MG/ML 1ML VIAL IV ONE ×2 (10:00→16:00)
[2023-04-08] MEDS ORDERED: IPRATROPIUM 0.5MG/ALBUTEROL 2.5MG INH SOL UD 3ML (DUONEB) NEB ONE (10:00)
[2023-04-08] MEDS: TIOTROPIUM INHALER/CAPSULE (SPIRIVA) INH SCH (10:07)
[2023-04-08] MEDS: IPRATROPIUM 0.5MG/ALBUTEROL 2.5MG INH SOL UD 3ML (DUONEB) NEB SCH ×4 (11:28→23:34)
[2023-04-08 12:13] LABS: HEMOGLOBIN A1c 5.6 % (4.0-6.0)
[2023-04-08 12:18] LABS: OSMOLALITY SERUM 270 MOSM/KG (280-301)
[2023-04-08] MEDS: amLODIPine 5 MG TAB PO SCH ×2 (12:55→20:38)
[2023-04-08 12:56] VITALS: BP 121/78
[2023-04-08] MEDS: SODIUM CHLORIDE 1 GM TAB PO SCH ×2 (13:00→17:38)
[2023-04-08] MEDS: DOXYCYCLINE HYCLATE 100MG TABLET PO SCH ×2 (13:00→20:35)
[2023-04-08] MEDS: guaiFENesin ER 600 MG TAB PO SCH ×2 (13:00→20:36)
[2023-04-08 14:00] VITALS: BP 120/90; TEMP 97.3; O2SAT 95
[2023-04-08] MEDS ORDERED: INSULIN LISPRO (NovoLOG) PER UNIT SC SCH ×2 (17:30→21:00)
[2023-04-08] MEDS: predniSONE 20 MG TAB PO SCH ×2 (17:38→20:35)
[2023-04-08] MEDS: BUDESONIDE 0.5 MG/2 ML INHALATION SUSPENSION INH SCH (19:45)
[2023-04-08 21:00] VITALS: BP 123/83; TEMP 97.7; O2SAT 92
[2023-04-09] MEDS: IPRATROPIUM 0.5MG/ALBUTEROL 2.5MG INH SOL UD 3ML (DUONEB) NEB SCH ×6 (03:09→23:33)
[2023-04-09] MEDS: PERCOCET 5MG/325MG TAB PO PRN ×4 (03:33→20:52)
[2023-04-09 05:30] VITALS: BP 124/83; TEMP 97.3; O2SAT 91
[2023-04-09] MEDS: BUDESONIDE 0.5 MG/2 ML INHALATION SUSPENSION INH SCH ×2 (07:39→19:44)
[2023-04-09] MEDS: TIOTROPIUM INHALER/CAPSULE (SPIRIVA) INH SCH (07:39)
[2023-04-09] MEDS ORDERED: PERCOCET 5MG/325MG TAB PO ONE (08:00)
[2023-04-09] MEDS ORDERED: KETOROLAC 30 MG/ML 1ML VIAL IV ONE (08:00)
[2023-04-09] MEDS: INSULIN LISPRO (NovoLOG) PER UNIT SC SCH ×4 (08:21→20:58)
[2023-04-09] MEDS: guaiFENesin ER 600 MG TAB PO SCH ×2 (08:21→20:51)
[2023-04-09] MEDS: predniSONE 20 MG TAB PO SCH ×3 (08:21→20:53)
[2023-04-09] MEDS: DOXYCYCLINE HYCLATE 100MG TABLET PO SCH ×2 (08:21→20:53)
[2023-04-09] MEDS: SODIUM CHLORIDE 1 GM TAB PO SCH ×3 (08:21→18:01)
[2023-04-09] MEDS: DOCUSATE SODIUM 100MG CAPSULE PO SCH ×2 (08:21→20:53)
[2023-04-09] MEDS: ENOXAPARIN 40MG/0.4ML SYRINGE (J1650 PER 10MG) SC SCH (08:23)
[2023-04-09] MEDS: LIDOCAINE 5% (LIDODERM) PATCH TD SCH (08:23)
[2023-04-09] MEDS: amLODIPine 5 MG TAB PO SCH ×3 (08:24→20:55)
[2023-04-09] MEDS ORDERED: predniSONE 20 MG TAB PO SCH (09:00)
[2023-04-09 14:00] VITALS: TEMP 97.9; O2SAT 90
[2023-04-09 15:21] LABS: BLOOD UREA NITROGEN 32 MG/DL (9-23); CALCIUM LEVEL 9.6 MG/DL (8.3-10.6); CARBON DIOXIDE LEVEL 27 MMOL/L (20-31); CHLORIDE LEVEL 93 MMOL/L (98-107); CREATININE FOR GFR 0.66 MG/DL (0.70-1.30); GLOMERULAR FILTRATION RATE > 60.0 (>49); GLUCOSE, FASTING 171 MG/DL (74-106); POTASSIUM SERUM 3.7 MMOL/L (3.5-5.1); SODIUM LEVEL 127 MMOL/L (136-145)
[2023-04-09] MEDS: KETOROLAC 30 MG/ML 1ML VIAL IV PRN (18:01)
[2023-04-09] MEDS ORDERED: SUCRALFATE SUSP 1GM/10ML UD PO ONE (18:30)
[2023-04-09] MEDS ORDERED: CALCIUM CARBONATE 500 MG CHEW U/D PO ONE (18:30)
[2023-04-09 20:40] VITALS: BP 123/79; TEMP 98.1; O2SAT 91
[2023-04-09] MEDS: SUCRALFATE SUSP 1GM/10ML UD PO SCH (20:50)
[2023-04-10] MEDS: IPRATROPIUM 0.5MG/ALBUTEROL 2.5MG INH SOL UD 3ML (DUONEB) NEB SCH ×6 (03:10→23:19)
[2023-04-10 05:30] VITALS: BP 140/85; TEMP 97.7; O2SAT 91
[2023-04-10] MEDS: TIOTROPIUM INHALER/CAPSULE (SPIRIVA) INH SCH (07:21)
[2023-04-10] MEDS: BUDESONIDE 0.5 MG/2 ML INHALATION SUSPENSION INH SCH ×2 (07:21→19:33)
[2023-04-10] MEDS: PERCOCET 5MG/325MG TAB PO PRN ×4 (08:12→23:05)
[2023-04-10] MEDS: DOCUSATE SODIUM 100MG CAPSULE PO SCH ×2 (08:12→20:15)
[2023-04-10] MEDS: guaiFENesin ER 600 MG TAB PO SCH ×2 (08:13→20:16)
[2023-04-10] MEDS: SODIUM CHLORIDE 1 GM TAB PO SCH ×3 (08:13→16:43)
[2023-04-10] MEDS: DOXYCYCLINE HYCLATE 100MG TABLET PO SCH ×2 (08:13→20:16)
[2023-04-10] MEDS: predniSONE 20 MG TAB PO SCH ×3 (08:13→20:16)
[2023-04-10] MEDS: INSULIN LISPRO (NovoLOG) PER UNIT SC SCH ×4 (08:14→21:00)
[2023-04-10] MEDS: SUCRALFATE SUSP 1GM/10ML UD PO SCH ×4 (08:14→20:16)
[2023-04-10] MEDS: ENOXAPARIN 40MG/0.4ML SYRINGE (J1650 PER 10MG) SC SCH (08:15)
[2023-04-10] MEDS: LIDOCAINE 5% (LIDODERM) PATCH TD SCH (08:15)
[2023-04-10] MEDS: amLODIPine 5 MG TAB PO SCH ×2 (08:21→20:15)
[2023-04-10 14:30] VITALS: BP 113/71; TEMP 97; O2SAT 92
[2023-04-10] MEDS: KETOROLAC 30 MG/ML 1ML VIAL IV PRN (18:00)
[2023-04-10 18:33] LABS: BLOOD UREA NITROGEN 24 MG/DL (9-23); CALCIUM LEVEL 9.6 MG/DL (8.3-10.6); CARBON DIOXIDE LEVEL 26 MMOL/L (20-31); CHLORIDE LEVEL 94 MMOL/L (98-107); CREATININE FOR GFR 0.56 MG/DL (0.70-1.30); GLOMERULAR FILTRATION RATE > 60.0 (>49); GLUCOSE, FASTING 206 MG/DL (74-106); POTASSIUM SERUM 4.2 MMOL/L (3.5-5.1); SODIUM LEVEL 130 MMOL/L (136-145)
[2023-04-10 20:30] VITALS: BP 125/75; TEMP 96.4; O2SAT 91
[2023-04-10 23:23] LABS: BLOOD UREA NITROGEN 26 MG/DL (9-23); CALCIUM LEVEL 9.9 MG/DL (8.3-10.6); CARBON DIOXIDE LEVEL 27 MMOL/L (20-31); CHLORIDE LEVEL 93 MMOL/L (98-107); CREATININE FOR GFR 0.58 MG/DL (0.70-1.30); GLOMERULAR FILTRATION RATE > 60.0 (>49); GLUCOSE, FASTING 167 MG/DL (74-106); POTASSIUM SERUM 4.6 MMOL/L (3.5-5.1); SODIUM LEVEL 127 MMOL/L (136-145)
[2023-04-11] MEDS: IPRATROPIUM 0.5MG/ALBUTEROL 2.5MG INH SOL UD 3ML (DUONEB) NEB SCH ×6 (04:04→23:38)
[2023-04-11 05:40] VITALS: BP 133/85; TEMP 97.5; O2SAT 91
[2023-04-11 06:10] LABS: BLOOD UREA NITROGEN 24 MG/DL (9-23); CALCIUM LEVEL 9.6 MG/DL (8.3-10.6); CARBON DIOXIDE LEVEL 26 MMOL/L (20-31); CHLORIDE LEVEL 93 MMOL/L (98-107); CREATININE FOR GFR 0.51 MG/DL (0.70-1.30); GLOMERULAR FILTRATION RATE > 60.0 (>49); GLUCOSE, FASTING 197 MG/DL (74-106); POTASSIUM SERUM 4.3 MMOL/L (3.5-5.1); SODIUM LEVEL 127 MMOL/L (136-145)
[2023-04-11] MEDS ORDERED: IPRATROPIUM 0.5MG/ALBUTEROL 2.5MG INH SOL UD 3ML (DUONEB) NEB ONE (07:05)
[2023-04-11] MEDS: TIOTROPIUM INHALER/CAPSULE (SPIRIVA) INH SCH (07:05)
[2023-04-11] MEDS: BUDESONIDE 0.5 MG/2 ML INHALATION SUSPENSION INH SCH ×2 (07:05→19:13)
[2023-04-11] MEDS ORDERED: PERCOCET 5MG/325MG TAB PO ONE (07:30)
[2023-04-11] MEDS: SUCRALFATE SUSP 1GM/10ML UD PO SCH ×4 (08:36→21:59)
[2023-04-11] MEDS: INSULIN LISPRO (NovoLOG) PER UNIT SC SCH ×4 (08:36→21:00)
[2023-04-11] MEDS: DOXYCYCLINE HYCLATE 100MG TABLET PO SCH ×2 (08:37→21:58)
[2023-04-11] MEDS: ENOXAPARIN 40MG/0.4ML SYRINGE (J1650 PER 10MG) SC SCH (08:37)
[2023-04-11] MEDS: DOCUSATE SODIUM 100MG CAPSULE PO SCH ×2 (08:37→21:59)
[2023-04-11] MEDS: guaiFENesin ER 600 MG TAB PO SCH ×2 (08:37→21:58)
[2023-04-11] MEDS: LIDOCAINE 5% (LIDODERM) PATCH TD SCH (08:37)
[2023-04-11] MEDS: amLODIPine 5 MG TAB PO SCH ×2 (08:37→22:01)
[2023-04-11] MEDS: predniSONE 20 MG TAB PO SCH ×3 (08:37→21:59)
[2023-04-11] MEDS ORDERED: TOLVAPTAN 7.5 MG HALF-TAB PO ONE (09:00)
[2023-04-11 14:00] VITALS: BP 133/89; TEMP 97.7; O2SAT 90
[2023-04-11] MEDS: PERCOCET 5MG/325MG TAB PO PRN ×2 (14:43→18:49)
[2023-04-11 15:19] LABS: BLOOD UREA NITROGEN 20 MG/DL (9-23); CARBON DIOXIDE LEVEL 29 MMOL/L (20-31); CHLORIDE LEVEL 95 MMOL/L (98-107); CREATININE FOR GFR 0.53 MG/DL (0.70-1.30); GLOMERULAR FILTRATION RATE > 60.0 (>49); GLUCOSE, FASTING 172 MG/DL (74-106); POTASSIUM SERUM 4.4 MMOL/L (3.5-5.1); SODIUM LEVEL 133 MMOL/L (136-145)
[2023-04-11 18:59] LABS: BLOOD UREA NITROGEN 20 MG/DL (9-23); CARBON DIOXIDE LEVEL 30 MMOL/L (20-31); CHLORIDE LEVEL 96 MMOL/L (98-107); CREATININE FOR GFR 0.55 MG/DL (0.70-1.30); GLOMERULAR FILTRATION RATE > 60.0 (>49); GLUCOSE, FASTING 168 MG/DL (74-106); POTASSIUM SERUM 4.2 MMOL/L (3.5-5.1); SODIUM LEVEL 133 MMOL/L (136-145)
[2023-04-11 21:24] VITALS: BP 130/82; TEMP 97.3; O2SAT 93
[2023-04-11] MEDS: KETOROLAC 30 MG/ML 1ML VIAL IV PRN (22:02)
[2023-04-12] MEDS: IPRATROPIUM 0.5MG/ALBUTEROL 2.5MG INH SOL UD 3ML (DUONEB) NEB SCH ×5 (03:50→20:55)
[2023-04-12] MEDS: PERCOCET 5MG/325MG TAB PO PRN (04:17)
[2023-04-12 05:27] VITALS: BP 128/80; TEMP 97.3; O2SAT 93
[2023-04-12 05:57] LABS: HEMATOCRIT 40.8 % (42.0-52.0); MEAN CORPUSCULAR HEMOGLOBIN 29.8 pg (27.0-33.0); MEAN CORPUSCULAR HGB CONC 34.3 g/dl (32.0-36.5); MEAN CORPUSCULAR VOLUME 86.8 fl (80.0-96.0); PLATELET COUNT, AUTOMATED 182 10^3/uL (150-450); WHITE BLOOD COUNT 14.3 10^3/uL (4.0-10.0)
[2023-04-12 06:34] LABS: BLOOD UREA NITROGEN 27 MG/DL (9-23); CALCIUM LEVEL 9.6 MG/DL (8.3-10.6); CARBON DIOXIDE LEVEL 28 MMOL/L (20-31); CHLORIDE LEVEL 95 MMOL/L (98-107); GLOMERULAR FILTRATION RATE > 60.0 (>49); GLUCOSE, FASTING 198 MG/DL (74-106); POTASSIUM SERUM 4.6 MMOL/L (3.5-5.1); SODIUM LEVEL 131 MMOL/L (136-145)
[2023-04-12] MEDS: BUDESONIDE 0.5 MG/2 ML INHALATION SUSPENSION INH SCH ×2 (07:08→20:55)
[2023-04-12] MEDS: TIOTROPIUM INHALER/CAPSULE (SPIRIVA) INH SCH (07:08)
[2023-04-12] MEDS ORDERED: oxyCODONE 5MG TAB PO PRN (08:10)
[2023-04-12] MEDS: MOM 30ML SUSPENSION UDC PO SCH (09:08)
[2023-04-12] MEDS: LIDOCAINE 5% (LIDODERM) PATCH TD SCH (09:08)
[2023-04-12] MEDS: ENOXAPARIN 40MG/0.4ML SYRINGE (J1650 PER 10MG) SC SCH (09:08)
[2023-04-12] MEDS: SUCRALFATE SUSP 1GM/10ML UD PO SCH ×4 (09:08→21:47)
[2023-04-12] MEDS: predniSONE 20 MG TAB PO SCH ×2 (09:09→21:45)
[2023-04-12] MEDS: INSULIN LISPRO (NovoLOG) PER UNIT SC SCH ×4 (09:09→20:58)
[2023-04-12] MEDS: ACETAMINOPHEN 500 MG TAB PO SCH ×3 (09:09→21:47)
[2023-04-12] MEDS: NAPROXEN 250 MG TAB PO SCH ×2 (09:09→21:46)
[2023-04-12] MEDS: DOXYCYCLINE HYCLATE 100MG TABLET PO SCH ×2 (09:10→21:47)
[2023-04-12] MEDS: amLODIPine 5 MG TAB PO SCH ×2 (09:10→21:00)
[2023-04-12] MEDS: DOCUSATE SODIUM 100MG CAPSULE PO SCH ×2 (09:10→21:47)
[2023-04-12] MEDS: guaiFENesin ER 600 MG TAB PO SCH ×2 (09:10→21:47)
[2023-04-12] MEDS: SENOKOT S TAB PO SCH ×2 (09:10→21:47)
[2023-04-12] MEDS ORDERED: TOLVAPTAN 7.5 MG HALF-TAB PO ONE (10:00)
[2023-04-12 14:00] VITALS: BP 126/81; TEMP 97.9; O2SAT 92
[2023-04-12] MEDS: traMADol 50 MG TAB PO PRN (15:07)
[2023-04-12] MEDS: oxyCODONE 5MG TAB PO SCH ×2 (16:58→21:48)
[2023-04-12 20:40] VITALS: BP 126/79; TEMP 97.3; O2SAT 92
[2023-04-13] VITALS (8 sets, daily range): BP systolic 125–151; BP diastolic 73–85; TEMP 97–97.9; O2SAT 93–95
[2023-04-13] MEDS: IPRATROPIUM 0.5MG/ALBUTEROL 2.5MG INH SOL UD 3ML (DUONEB) NEB SCH ×4 (00:19→11:17)
[2023-04-13] MEDS: TIOTROPIUM INHALER/CAPSULE (SPIRIVA) INH SCH (07:15)
[2023-04-13] MEDS: BUDESONIDE 0.5 MG/2 ML INHALATION SUSPENSION INH SCH ×2 (07:15→20:30)
[2023-04-13 07:57] LABS: BASO % 0.1 % (0.0-1.0); HEMOGLOBIN 14.3 g/dl (13.5-17.5); LYMPH # 1.1 10^3/uL (1.5-5.0); LYMPH % 6.7 % (24.0-44.0); MEAN CORPUSCULAR HEMOGLOBIN 29.5 pg (27.0-33.0); MEAN CORPUSCULAR VOLUME 86.6 fl (80.0-96.0); MONO # 1.2 10^3/uL (0.0-0.8); MONO % 7.6 % (2.0-8.0); NEUTROPHILS # 13.2 10^3/uL (1.5-8.5); NEUTROPHILS % 84.3 % (36.0-66.0); PLATELET COUNT, AUTOMATED 220 10^3/uL (150-450); RED BLOOD COUNT 4.85 10^6/uL (4.30-6.10); WHITE BLOOD COUNT 15.7 10^3/uL (4.0-10.0)
[2023-04-13 08:24] LABS: BLOOD UREA NITROGEN 26 MG/DL (9-23); CALCIUM LEVEL 9.8 MG/DL (8.3-10.6); CARBON DIOXIDE LEVEL 30 MMOL/L (20-31); CHLORIDE LEVEL 96 MMOL/L (98-107); CREATININE FOR GFR 0.59 MG/DL (0.70-1.30); GLOMERULAR FILTRATION RATE > 60.0 (>49); GLUCOSE, FASTING 194 MG/DL (74-106); POTASSIUM SERUM 5.1 MMOL/L (3.5-5.1); SODIUM LEVEL 133 MMOL/L (136-145)
[2023-04-13] MEDS: amLODIPine 5 MG TAB PO SCH ×2 (09:00→21:00)
[2023-04-13] MEDS: MOM 30ML SUSPENSION UDC PO SCH (09:31)
[2023-04-13] MEDS: DOCUSATE SODIUM 100MG CAPSULE PO SCH ×2 (09:31→20:59)
[2023-04-13] MEDS: SENOKOT S TAB PO SCH ×2 (09:31→20:59)
[2023-04-13] MEDS: SUCRALFATE SUSP 1GM/10ML UD PO SCH ×4 (09:32→21:00)
[2023-04-13] MEDS: INSULIN LISPRO (NovoLOG) PER UNIT SC SCH ×4 (09:32→21:00)
[2023-04-13] MEDS: guaiFENesin ER 600 MG TAB PO SCH ×2 (09:33→21:00)
[2023-04-13] MEDS: predniSONE 20 MG TAB PO SCH ×2 (09:33→21:00)
[2023-04-13] MEDS: ACETAMINOPHEN 500 MG TAB PO SCH ×3 (09:33→20:59)
[2023-04-13] MEDS: ENOXAPARIN 40MG/0.4ML SYRINGE (J1650 PER 10MG) SC SCH (09:34)
[2023-04-13] MEDS: oxyCODONE 5MG TAB PO SCH (09:34)
[2023-04-13] MEDS: NAPROXEN 250 MG TAB PO SCH ×2 (09:34→21:24)
[2023-04-13] MEDS: LIDOCAINE 5% (LIDODERM) PATCH TD SCH (09:34)
[2023-04-13] MEDS ORDERED: PANTOPRAZOLE 40MG TAB (PROTONIX) PO ONE (12:50)
[2023-04-13] MEDS: traMADol 50 MG TAB PO PRN (13:21)
[2023-04-13] MEDS ORDERED: oxyCODONE 5MG TAB PO SCH (16:00)
[2023-04-13] MEDS ORDERED: KETOROLAC 30 MG/ML 1ML VIAL IV SCH (18:00)
[2023-04-13] MEDS ORDERED: LEVALBUTEROL 1.25MG 0.5ML CONCENTRATE NEB NEB PRN (18:30)
[2023-04-13] MEDS ORDERED: BISACODYL 10MG SUPP PR PRN (18:30)
[2023-04-13] MEDS ORDERED: PERCOCET 5MG/325MG TAB PO PRN ×2 (18:30)
[2023-04-13] MEDS ORDERED: IPRATROPIUM 0.5MG/ALBUTEROL 2.5MG INH SOL UD 3ML (DUONEB) NEB SCH (20:00)
[2023-04-13] MEDS: LEVALBUTEROL 1.25MG 0.5ML CONCENTRATE NEB NEB SCH (20:30)
[2023-04-13 20:39] LABS: ABG HCO3 27.5 MMOL/L (22.0-26.0); ABG O2 SATURATION 95.7 % (95.0-99.0); ABG PARTIAL PRESSURE CO2 37.6 mmHg (35.0-45.0); ABG PARTIAL PRESSURE O2 77.7 mmHg (75.0-100.0); ABG TOTAL CO2 28.7 MMOL/L (23.0-31.0); ABG pH (ARTERIAL) 7.482 UNITS (7.350-7.450)
[2023-04-13] MEDS ORDERED: diphenhydrAMINE 50MG/ML VIAL IV PRN (21:30)
[2023-04-13] MEDS ORDERED: EPIDURAL/PCA KEYS XX PRN (21:30)
[2023-04-13] MEDS ORDERED: WALLBOXKEY XX PRN (21:30)
[2023-04-13] MEDS ORDERED: ONDANSETRON 4MG 2ML VIAL IV PRN (21:30)
[2023-04-13] MEDS ORDERED: METOCLOPRAMIDE INJ 10MG/2ML VIAL IV PRN (21:30)
[2023-04-13] MEDS ORDERED: FENTANYL/ROPIVACAINE/NACL BAG 100 ML EPIDURAL SCH (21:30)
[2023-04-13] MEDS ORDERED: NALOXONE INJ 0.4MG/1ML VIAL IV PRN (21:30)
[2023-04-13] MEDS ORDERED: KETOROLAC 30 MG/ML 1ML VIAL IV PRN (21:35)
[2023-04-13] MEDS ORDERED: MORPHINE 1MG/ML IN 0.9% NACL 100ML IV BAG IV PRN (21:35)
[2023-04-13] MEDS: NS 1,000 ML IV SCH (21:35)
[2023-04-14] VITALS (12 sets, daily range): BP systolic 108–142; BP diastolic 67–82; TEMP 96.7–97.8; O2SAT 92–97
[2023-04-14] MEDS: LEVALBUTEROL 1.25MG 0.5ML CONCENTRATE NEB NEB SCH ×4 (01:08→19:24)
[2023-04-14 05:13] LABS: BASO % 0.2 % (0.0-1.0); EOS % 0.1 % (0.0-3.0); HEMATOCRIT 39.2 % (42.0-52.0); HEMOGLOBIN 13.4 g/dl (13.5-17.5); LYMPH # 1.6 10^3/uL (1.5-5.0); LYMPH % 9.6 % (24.0-44.0); MEAN CORPUSCULAR HEMOGLOBIN 29.5 pg (27.0-33.0); MEAN CORPUSCULAR HGB CONC 34.2 g/dl (32.0-36.5); MEAN CORPUSCULAR VOLUME 86.3 fl (80.0-96.0); MONO # 1.2 10^3/uL (0.0-0.8); MONO % 7.5 % (2.0-8.0); NEUTROPHILS # 13.4 10^3/uL (1.5-8.5); NEUTROPHILS % 80.6 % (36.0-66.0); PLATELET COUNT, AUTOMATED 209 10^3/uL (150-450); RED BLOOD COUNT 4.54 10^6/uL (4.30-6.10); WHITE BLOOD COUNT 16.6 10^3/uL (4.0-10.0)
[2023-04-14 05:25] LABS: BLOOD UREA NITROGEN 33 MG/DL (9-23); CALCIUM LEVEL 9.5 MG/DL (8.3-10.6); CARBON DIOXIDE LEVEL 30 MMOL/L (20-31); CHLORIDE LEVEL 95 MMOL/L (98-107); GLOMERULAR FILTRATION RATE > 60.0 (>49); GLUCOSE, FASTING 157 MG/DL (74-106); POTASSIUM SERUM 5.4 MMOL/L (3.5-5.1); SODIUM LEVEL 129 MMOL/L (136-145)
[2023-04-14 05:51] LABS: ABG BASE EXCESS 6.1 (-2.0-2.0); ABG HCO3 30.2 MMOL/L (22.0-26.0); ABG O2 SATURATION 93.3 % (95.0-99.0); ABG PARTIAL PRESSURE CO2 41.5 mmHg (35.0-45.0); ABG PARTIAL PRESSURE O2 63.3 mmHg (75.0-100.0); ABG STANDARD HCO3 29.9 MMOL/L. (22.0-26.0); ABG TOTAL CO2 31.5 MMOL/L (23.0-31.0)
[2023-04-14] MEDS: INSULIN LISPRO (NovoLOG) PER UNIT SC SCH ×4 (07:30→20:50)
[2023-04-14] MEDS: BUDESONIDE 0.5 MG/2 ML INHALATION SUSPENSION INH SCH (07:45)
[2023-04-14] MEDS: TIOTROPIUM INHALER/CAPSULE (SPIRIVA) INH SCH (07:45)
[2023-04-14] MEDS: amLODIPine 5 MG TAB PO SCH ×2 (09:00→20:52)
[2023-04-14] MEDS: LACTULOSE 20GM/30ML SYRUP UDC PO SCH ×3 (09:31→18:15)
[2023-04-14] MEDS: predniSONE 20 MG TAB PO SCH ×2 (09:32→21:07)
[2023-04-14] MEDS: DOCUSATE SODIUM 100MG CAPSULE PO SCH ×2 (09:32→21:07)
[2023-04-14] MEDS: MOM 30ML SUSPENSION UDC PO SCH (09:32)
[2023-04-14] MEDS: PANTOPRAZOLE 40MG TAB (PROTONIX) PO SCH (09:33)
[2023-04-14] MEDS: SENOKOT S TAB PO SCH ×2 (09:33→21:07)
[2023-04-14] MEDS: guaiFENesin ER 600 MG TAB PO SCH ×2 (09:33→21:07)
[2023-04-14] MEDS: LIDOCAINE 5% (LIDODERM) PATCH TD SCH (09:34)
[2023-04-14] MEDS: KETOROLAC 30 MG/ML 1ML VIAL IV SCH ×3 (09:34→18:15)
[2023-04-14] MEDS: SUCRALFATE SUSP 1GM/10ML UD PO SCH ×4 (09:38→21:07)
[2023-04-14] MEDS ORDERED: SYMB80INH INH (11:46)
[2023-04-14] MEDS ORDERED: SPIR1CAP INH (11:46)
[2023-04-14] MEDS ORDERED: TOLVAPTAN 7.5 MG HALF-TAB PO ONE (12:00)
[2023-04-14] MEDS ORDERED: EPIDURAL/PCA KEYS XX PRN (13:40)
[2023-04-14] MEDS ORDERED: LR 1,000 ML IV SCH (13:40)
[2023-04-14] MEDS ORDERED: LR 500 ML IV PRN (13:40)
[2023-04-14] MEDS ORDERED: MIDAZOLAM INJ 2MG/2ML VIAL IV STA (13:40)
[2023-04-14] MEDS ORDERED: NALOXONE INJ 0.4MG/1ML VIAL IV PRN (13:40)
[2023-04-14] MEDS ORDERED: diphenhydrAMINE 50MG/ML VIAL IV PRN (13:40)
[2023-04-14] MEDS ORDERED: ONDANSETRON 4MG 2ML VIAL IV PRN (13:40)
[2023-04-14] MEDS ORDERED: ePHEDrine SULFATE 25 MG/5 ML(5MG/ML) SYRINGE IVP PRN (13:40)
[2023-04-14] MEDS ORDERED: REFLB XX ONE (13:45)
[2023-04-14] MEDS ORDERED: FENTANYL/ROPIVACAINE/NACL BAG 100 ML EPIDURAL SCH (14:00)
[2023-04-14] MEDS: SYMBICORT 80/4.5MCG INHALER 6GM INH SCH (19:25)
[2023-04-14] MEDS ORDERED: PATIROMER SORBITEX CALCIUM 8.4 GM POWDER PACKET (VELTASSA) PO ONE (20:05)
[2023-04-14] MEDS: FENTANYL/ROPIVACAINE/NACL BAG 100 ML EPIDURAL SCH (20:22)
[2023-04-15] VITALS (18 sets, daily range): BP systolic 114–145; BP diastolic 66–76; TEMP 97.2–97.8; O2SAT 93–99
[2023-04-15] MEDS: KETOROLAC 30 MG/ML 1ML VIAL IV SCH ×4 (01:04→18:20)
[2023-04-15] MEDS: LEVALBUTEROL 1.25MG 0.5ML CONCENTRATE NEB NEB SCH ×2 (01:19→07:12)
[2023-04-15] MEDS: NS 1,000 ML IV SCH ×2 (04:25→20:41)
[2023-04-15] MEDS: FENTANYL/ROPIVACAINE/NACL BAG 100 ML EPIDURAL SCH (04:25)
[2023-04-15] MEDS: LACTULOSE 20GM/30ML SYRUP UDC PO SCH ×2 (05:15)
[2023-04-15 05:18] LABS: BASO % 0.2 % (0.0-1.0); HEMOGLOBIN 13.4 g/dl (13.5-17.5); LYMPH % 4.5 % (24.0-44.0); MEAN CORPUSCULAR HEMOGLOBIN 29.4 pg (27.0-33.0); MEAN CORPUSCULAR HGB CONC 33.5 g/dl (32.0-36.5); MEAN CORPUSCULAR VOLUME 87.7 fl (80.0-96.0); MONO % 8.7 % (2.0-8.0); NEUTROPHILS # 19.5 10^3/uL (1.5-8.5); NEUTROPHILS % 85.5 % (36.0-66.0); PLATELET COUNT, AUTOMATED 205 10^3/uL (150-450); RED BLOOD COUNT 4.56 10^6/uL (4.30-6.10); WHITE BLOOD COUNT 22.8 10^3/uL (4.0-10.0)
[2023-04-15 05:32] LABS: BLOOD UREA NITROGEN 30 MG/DL (9-23); CALCIUM LEVEL 8.9 MG/DL (8.3-10.6); CARBON DIOXIDE LEVEL 29 MMOL/L (20-31); CHLORIDE LEVEL 98 MMOL/L (98-107); CREATININE FOR GFR 0.69 MG/DL (0.70-1.30); GLOMERULAR FILTRATION RATE > 60.0 (>49); GLUCOSE, FASTING 140 MG/DL (74-106); SODIUM LEVEL 133 MMOL/L (136-145)
[2023-04-15] MEDS: SYMBICORT 80/4.5MCG INHALER 6GM INH SCH ×2 (07:12→19:35)
[2023-04-15] MEDS: TIOTROPIUM INHALER/CAPSULE (SPIRIVA) INH SCH (07:12)
[2023-04-15] MEDS: predniSONE 20 MG TAB PO SCH ×2 (08:44→20:39)
[2023-04-15] MEDS: LIDOCAINE 5% (LIDODERM) PATCH TD SCH (08:44)
[2023-04-15] MEDS: INSULIN LISPRO (NovoLOG) PER UNIT SC SCH ×4 (08:44→20:31)
[2023-04-15] MEDS: guaiFENesin ER 600 MG TAB PO SCH ×2 (08:45→20:39)
[2023-04-15] MEDS: amLODIPine 5 MG TAB PO SCH ×2 (08:45→20:41)
[2023-04-15] MEDS: PANTOPRAZOLE 40MG TAB (PROTONIX) PO SCH (08:45)
[2023-04-15] MEDS: SUCRALFATE SUSP 1GM/10ML UD PO SCH ×4 (08:46→20:39)
[2023-04-15] MEDS: MOM 30ML SUSPENSION UDC PO SCH (08:47)
[2023-04-15] MEDS: SENOKOT S TAB PO SCH ×2 (08:47→20:39)
[2023-04-15] MEDS: DOCUSATE SODIUM 100MG CAPSULE PO SCH ×2 (08:47→20:39)
[2023-04-15] MEDS ORDERED: LEVALBUTEROL 1.25MG 0.5ML CONCENTRATE NEB NEB SCH (11:30)
[2023-04-15] MEDS ORDERED: TOLVAPTAN 7.5 MG HALF-TAB PO ONE (12:00)
[2023-04-15 12:04] LABS: PROCALCITONIN 0.08 ng/ml
[2023-04-15] MEDS: SODIUM CHLORIDE HYPERTONIC 3% 15ML NEB SOL INH SCH ×4 (13:20→23:12)
[2023-04-15] MEDS: LEVALBUTEROL 1.25MG 0.5ML CONCENTRATE NEB INH SCH ×4 (13:20→23:12)
[2023-04-16] VITALS (27 sets, daily range): BP systolic 102–146; BP diastolic 63–76; TEMP 96.2–97.6; O2SAT 89–97
[2023-04-16] MEDS: KETOROLAC 30 MG/ML 1ML VIAL IV SCH ×4 (02:27→20:27)
[2023-04-16] MEDS: FENTANYL/ROPIVACAINE/NACL BAG 100 ML EPIDURAL SCH ×3 (02:41→20:35)
[2023-04-16] MEDS: LEVALBUTEROL 1.25MG 0.5ML CONCENTRATE NEB INH SCH ×6 (03:17→23:17)
[2023-04-16] MEDS: SODIUM CHLORIDE HYPERTONIC 3% 15ML NEB SOL INH SCH ×6 (03:17→23:17)
[2023-04-16 05:46] LABS: BASO % 0.2 % (0.0-1.0); EOS % 0.1 % (0.0-3.0); HEMATOCRIT 36.5 % (42.0-52.0); HEMOGLOBIN 12.5 g/dl (13.5-17.5); LYMPH # 1.5 10^3/uL (1.5-5.0); LYMPH % 7.4 % (24.0-44.0); MEAN CORPUSCULAR HEMOGLOBIN 29.5 pg (27.0-33.0); MEAN CORPUSCULAR HGB CONC 34.2 g/dl (32.0-36.5); MEAN CORPUSCULAR VOLUME 86.1 fl (80.0-96.0); MONO # 1.4 10^3/uL (0.0-0.8); MONO % 7.3 % (2.0-8.0); NEUTROPHILS # 16.4 10^3/uL (1.5-8.5); NEUTROPHILS % 83.5 % (36.0-66.0); PLATELET COUNT, AUTOMATED 199 10^3/uL (150-450); RED BLOOD COUNT 4.24 10^6/uL (4.30-6.10); WHITE BLOOD COUNT 19.6 10^3/uL (4.0-10.0)
[2023-04-16 06:08] LABS: BLOOD UREA NITROGEN 26 MG/DL (9-23); CALCIUM LEVEL 8.5 MG/DL (8.3-10.6); CARBON DIOXIDE LEVEL 28 MMOL/L (20-31); CHLORIDE LEVEL 97 MMOL/L (98-107); CREATININE FOR GFR 0.56 MG/DL (0.70-1.30); GLOMERULAR FILTRATION RATE > 60.0 (>49); GLUCOSE, FASTING 151 MG/DL (74-106); POTASSIUM SERUM 4.7 MMOL/L (3.5-5.1); SODIUM LEVEL 131 MMOL/L (136-145)
[2023-04-16] MEDS: TIOTROPIUM INHALER/CAPSULE (SPIRIVA) INH SCH (07:10)
[2023-04-16] MEDS: SYMBICORT 80/4.5MCG INHALER 6GM INH SCH ×2 (07:12→20:16)
[2023-04-16] MEDS: INSULIN LISPRO (NovoLOG) PER UNIT SC SCH ×4 (07:30→22:00)
[2023-04-16] MEDS: SUCRALFATE SUSP 1GM/10ML UD PO SCH ×4 (07:30→20:26)
[2023-04-16] MEDS: amLODIPine 5 MG TAB PO SCH ×3 (09:00→21:00)
[2023-04-16] MEDS: predniSONE 20 MG TAB PO SCH (09:03)
[2023-04-16] MEDS: DOCUSATE SODIUM 100MG CAPSULE PO SCH ×2 (09:04→20:23)
[2023-04-16] MEDS: SENOKOT S TAB PO SCH ×2 (09:04→20:23)
[2023-04-16] MEDS: PANTOPRAZOLE 40MG TAB (PROTONIX) PO SCH (09:04)
[2023-04-16] MEDS: MOM 30ML SUSPENSION UDC PO SCH (09:04)
[2023-04-16] MEDS: guaiFENesin ER 600 MG TAB PO SCH ×2 (09:04→20:23)
[2023-04-16] MEDS: LIDOCAINE 5% (LIDODERM) PATCH TD SCH (09:05)
[2023-04-16] MEDS ORDERED: FUROSEMIDE 40MG/4ML VIAL IV ONE (10:00)
[2023-04-17] VITALS (29 sets, daily range): BP systolic 92–144; BP diastolic 42–69; TEMP 97.2–98; O2SAT 91–98
[2023-04-17] MEDS: KETOROLAC 30 MG/ML 1ML VIAL IV SCH ×4 (01:57→19:49)
[2023-04-17] MEDS: LEVALBUTEROL 1.25MG 0.5ML CONCENTRATE NEB INH SCH ×6 (03:09→23:37)
[2023-04-17] MEDS: SODIUM CHLORIDE HYPERTONIC 3% 15ML NEB SOL INH SCH ×6 (03:09→23:37)
[2023-04-17] MEDS: FENTANYL/ROPIVACAINE/NACL BAG 100 ML EPIDURAL SCH ×3 (05:03→21:13)
[2023-04-17 05:40] LABS: BASO % 0.1 % (0.0-1.0); EOS # 0.1 10^3/uL (0.0-0.5); EOS % 0.7 % (0.0-3.0); HEMATOCRIT 36.6 % (42.0-52.0); HEMOGLOBIN 12.2 g/dl (13.5-17.5); LYMPH # 3.2 10^3/uL (1.5-5.0); MEAN CORPUSCULAR HEMOGLOBIN 29.3 pg (27.0-33.0); MEAN CORPUSCULAR HGB CONC 33.3 g/dl (32.0-36.5); MEAN CORPUSCULAR VOLUME 87.8 fl (80.0-96.0); MONO # 1.3 10^3/uL (0.0-0.8); MONO % 7.9 % (2.0-8.0); NEUTROPHILS # 11.2 10^3/uL (1.5-8.5); NEUTROPHILS % 69.6 % (36.0-66.0); PLATELET COUNT, AUTOMATED 191 10^3/uL (150-450); RED BLOOD COUNT 4.17 10^6/uL (4.30-6.10); WHITE BLOOD COUNT 16.2 10^3/uL (4.0-10.0)
[2023-04-17 06:04] LABS: BLOOD UREA NITROGEN 28 MG/DL (9-23); CALCIUM LEVEL 8.3 MG/DL (8.3-10.6); CARBON DIOXIDE LEVEL 28 MMOL/L (20-31); CHLORIDE LEVEL 96 MMOL/L (98-107); CREATININE FOR GFR 0.64 MG/DL (0.70-1.30); GLOMERULAR FILTRATION RATE > 60.0 (>49); GLUCOSE, FASTING 115 MG/DL (74-106); POTASSIUM SERUM 4.2 MMOL/L (3.5-5.1); SODIUM LEVEL 130 MMOL/L (136-145)
[2023-04-17] MEDS: SUCRALFATE SUSP 1GM/10ML UD PO SCH ×4 (07:13→21:14)
[2023-04-17] MEDS: SYMBICORT 80/4.5MCG INHALER 6GM INH SCH ×2 (08:08→19:44)
[2023-04-17] MEDS: TIOTROPIUM INHALER/CAPSULE (SPIRIVA) INH SCH (08:08)
[2023-04-17] MEDS: INSULIN LISPRO (NovoLOG) PER UNIT SC SCH ×3 (08:13→17:02)
[2023-04-17] MEDS: LIDOCAINE 5% (LIDODERM) PATCH TD SCH (08:13)
[2023-04-17] MEDS: MOM 30ML SUSPENSION UDC PO SCH (08:13)
[2023-04-17] MEDS: PANTOPRAZOLE 40MG TAB (PROTONIX) PO SCH (08:14)
[2023-04-17] MEDS: amLODIPine 5 MG TAB PO SCH ×2 (08:14→21:14)
[2023-04-17] MEDS: DOCUSATE SODIUM 100MG CAPSULE PO SCH ×2 (08:14→21:14)
[2023-04-17] MEDS: guaiFENesin ER 600 MG TAB PO SCH ×2 (08:14→21:14)
[2023-04-17] MEDS: predniSONE 20 MG TAB PO SCH (08:14)
[2023-04-17] MEDS: SENOKOT S TAB PO SCH ×2 (08:14→21:14)
[2023-04-17] MEDS ORDERED: FUROSEMIDE 100MG/10ML VIAL IV ONE (10:00)
[2023-04-18] VITALS (17 sets, daily range): BP systolic 102–138; BP diastolic 61–70; TEMP 97.1–98.6; O2SAT 91–100
[2023-04-18] MEDS: KETOROLAC 30 MG/ML 1ML VIAL IV SCH (01:31)
[2023-04-18] MEDS: LEVALBUTEROL 1.25MG 0.5ML CONCENTRATE NEB INH SCH ×6 (02:56→23:32)
[2023-04-18] MEDS: SODIUM CHLORIDE HYPERTONIC 3% 15ML NEB SOL INH SCH ×6 (02:56→23:32)
[2023-04-18 05:17] LABS: BASO % 0.2 % (0.0-1.0); EOS # 0.1 10^3/uL (0.0-0.5); EOS % 0.7 % (0.0-3.0); HEMATOCRIT 37.2 % (42.0-52.0); HEMOGLOBIN 12.5 g/dl (13.5-17.5); LYMPH # 3.3 10^3/uL (1.5-5.0); LYMPH % 21.5 % (24.0-44.0); MEAN CORPUSCULAR HEMOGLOBIN 29.3 pg (27.0-33.0); MEAN CORPUSCULAR HGB CONC 33.6 g/dl (32.0-36.5); MEAN CORPUSCULAR VOLUME 87.3 fl (80.0-96.0); MONO # 1.2 10^3/uL (0.0-0.8); NEUTROPHILS # 10.3 10^3/uL (1.5-8.5); NEUTROPHILS % 67.3 % (36.0-66.0); PLATELET COUNT, AUTOMATED 198 10^3/uL (150-450); RED BLOOD COUNT 4.26 10^6/uL (4.30-6.10); WHITE BLOOD COUNT 15.3 10^3/uL (4.0-10.0)
[2023-04-18] MEDS: FENTANYL/ROPIVACAINE/NACL BAG 100 ML EPIDURAL SCH ×3 (05:24→21:21)
[2023-04-18 05:33] LABS: BLOOD UREA NITROGEN 28 MG/DL (9-23); CALCIUM LEVEL 8.5 MG/DL (8.3-10.6); CARBON DIOXIDE LEVEL 28 MMOL/L (20-31); CHLORIDE LEVEL 96 MMOL/L (98-107); GLOMERULAR FILTRATION RATE > 60.0 (>49); GLUCOSE, FASTING 96 MG/DL (74-106); POTASSIUM SERUM 3.5 MMOL/L (3.5-5.1); SODIUM LEVEL 131 MMOL/L (136-145)
[2023-04-18] MEDS: SYMBICORT 80/4.5MCG INHALER 6GM INH SCH ×2 (07:29→20:02)
[2023-04-18] MEDS: TIOTROPIUM INHALER/CAPSULE (SPIRIVA) INH SCH (07:29)
[2023-04-18] MEDS: INSULIN LISPRO (NovoLOG) PER UNIT SC SCH ×4 (07:30→17:30)
[2023-04-18] MEDS: SENOKOT S TAB PO SCH ×2 (08:38→20:11)
[2023-04-18] MEDS: LIDOCAINE 5% (LIDODERM) PATCH TD SCH (08:38)
[2023-04-18] MEDS: SUCRALFATE SUSP 1GM/10ML UD PO SCH ×5 (08:39→20:23)
[2023-04-18] MEDS: DOCUSATE SODIUM 100MG CAPSULE PO SCH ×2 (08:39→20:11)
[2023-04-18] MEDS: MOM 30ML SUSPENSION UDC PO SCH (08:39)
[2023-04-18] MEDS: amLODIPine 5 MG TAB PO SCH ×2 (08:39→20:10)
[2023-04-18] MEDS: PANTOPRAZOLE 40MG TAB (PROTONIX) PO SCH (08:40)
[2023-04-18] MEDS: guaiFENesin ER 600 MG TAB PO SCH ×2 (08:40→20:23)
[2023-04-18] MEDS: predniSONE 20 MG TAB PO SCH (08:41)
[2023-04-18] MEDS: FUROSEMIDE 100MG/10ML VIAL IV SCH (10:13)
[2023-04-18] MEDS ORDERED: fentaNYL 100 MCG/2 ML INJECTION IV PRN (12:10)
[2023-04-18] MEDS ORDERED: MIDAZOLAM INJ 2MG/2ML VIAL IV PRN (12:10)
[2023-04-18] MEDS ORDERED: LIDOCAINE PRES-FREE 2% 10ML AMP As Ordered ONE (12:41)
[2023-04-18] MEDS ORDERED: LR 1,000 ML IV ONE (13:00)
[2023-04-18] MEDS ORDERED: FENTANYL/ROPIVACAINE/NACL BAG 100 ML EPIDURAL SCH (14:05)
[2023-04-18] MEDS ORDERED: EPIDURAL/PCA KEYS XX PRN (14:05)
[2023-04-19] VITALS (30 sets, daily range): BP systolic 100–129; BP diastolic 58–81; TEMP 97.8–98.9; O2SAT 81–98
[2023-04-19] MEDS: LEVALBUTEROL 1.25MG 0.5ML CONCENTRATE NEB INH SCH ×6 (03:25→23:35)
[2023-04-19] MEDS: SODIUM CHLORIDE HYPERTONIC 3% 15ML NEB SOL INH SCH ×6 (03:25→23:34)
[2023-04-19] MEDS: FENTANYL/ROPIVACAINE/NACL BAG 100 ML EPIDURAL SCH ×3 (04:31→18:56)
[2023-04-19 05:30] LABS: BLOOD UREA NITROGEN 21 MG/DL (9-23); CALCIUM LEVEL 8.4 MG/DL (8.3-10.6); CARBON DIOXIDE LEVEL 30 MMOL/L (20-31); CHLORIDE LEVEL 97 MMOL/L (98-107); CREATININE FOR GFR 0.58 MG/DL (0.70-1.30); GLOMERULAR FILTRATION RATE > 60.0 (>49); GLUCOSE, FASTING 98 MG/DL (74-106); POTASSIUM SERUM 3.4 MMOL/L (3.5-5.1); SODIUM LEVEL 134 MMOL/L (136-145)
[2023-04-19 05:33] LABS: BASO % 0.2 % (0.0-1.0); EOS # 0.1 10^3/uL (0.0-0.5); EOS % 0.8 % (0.0-3.0); HEMATOCRIT 37.5 % (42.0-52.0); HEMOGLOBIN 12.7 g/dl (13.5-17.5); LYMPH # 2.9 10^3/uL (1.5-5.0); LYMPH % 21.1 % (24.0-44.0); MEAN CORPUSCULAR HEMOGLOBIN 29.4 pg (27.0-33.0); MEAN CORPUSCULAR HGB CONC 33.9 g/dl (32.0-36.5); MEAN CORPUSCULAR VOLUME 86.8 fl (80.0-96.0); MONO # 1.2 10^3/uL (0.0-0.8); MONO % 8.3 % (2.0-8.0); NEUTROPHILS # 9.3 10^3/uL (1.5-8.5); NEUTROPHILS % 67.4 % (36.0-66.0); PLATELET COUNT, AUTOMATED 205 10^3/uL (150-450); RED BLOOD COUNT 4.32 10^6/uL (4.30-6.10); WHITE BLOOD COUNT 13.8 10^3/uL (4.0-10.0)
[2023-04-19] MEDS: SYMBICORT 80/4.5MCG INHALER 6GM INH SCH ×2 (06:55→19:55)
[2023-04-19] MEDS: TIOTROPIUM INHALER/CAPSULE (SPIRIVA) INH SCH (06:55)
[2023-04-19] MEDS: INSULIN LISPRO (NovoLOG) PER UNIT SC SCH ×3 (07:30→18:59)
[2023-04-19] MEDS: MOM 30ML SUSPENSION UDC PO SCH (09:00)
[2023-04-19] MEDS: amLODIPine 5 MG TAB PO SCH ×3 (09:00→21:00)
[2023-04-19] MEDS ORDERED: POTASSIUM CHLORIDE 10MEQ SR TABLET PO ONE (09:00)
[2023-04-19] MEDS: FUROSEMIDE 100MG/10ML VIAL IV SCH (10:15)
[2023-04-19] MEDS: predniSONE 10MG TAB PO SCH (10:15)
[2023-04-19] MEDS: SUCRALFATE SUSP 1GM/10ML UD PO SCH ×4 (10:16→21:33)
[2023-04-19] MEDS: DOCUSATE SODIUM 100MG CAPSULE PO SCH ×2 (10:16→21:33)
[2023-04-19] MEDS: SENOKOT S TAB PO SCH ×2 (10:16→21:33)
[2023-04-19] MEDS: PANTOPRAZOLE 40MG TAB (PROTONIX) PO SCH (10:16)
[2023-04-19] MEDS: guaiFENesin ER 600 MG TAB PO SCH ×2 (10:20→21:33)
[2023-04-19] MEDS: LIDOCAINE 5% (LIDODERM) PATCH TD SCH ×2 (10:20→21:35)
[2023-04-20] VITALS (27 sets, daily range): BP systolic 102–155; BP diastolic 57–78; TEMP 96.5–98.4; O2SAT 90–98
[2023-04-20] MEDS: FENTANYL/ROPIVACAINE/NACL BAG 100 ML EPIDURAL SCH ×3 (02:46→17:10)
[2023-04-20] MEDS: LEVALBUTEROL 1.25MG 0.5ML CONCENTRATE NEB INH SCH ×5 (03:13→19:42)
[2023-04-20] MEDS: SODIUM CHLORIDE HYPERTONIC 3% 15ML NEB SOL INH SCH ×5 (03:13→19:42)
[2023-04-20 05:10] LABS: BASO % 0.2 % (0.0-1.0); EOS # 0.1 10^3/uL (0.0-0.5); EOS % 0.7 % (0.0-3.0); HEMATOCRIT 36.4 % (42.0-52.0); HEMOGLOBIN 12.4 g/dl (13.5-17.5); LYMPH # 3.4 10^3/uL (1.5-5.0); LYMPH % 23.8 % (24.0-44.0); MEAN CORPUSCULAR HEMOGLOBIN 29.5 pg (27.0-33.0); MEAN CORPUSCULAR HGB CONC 34.1 g/dl (32.0-36.5); MEAN CORPUSCULAR VOLUME 86.7 fl (80.0-96.0); MONO # 1.1 10^3/uL (0.0-0.8); MONO % 7.6 % (2.0-8.0); NEUTROPHILS # 9.4 10^3/uL (1.5-8.5); NEUTROPHILS % 65.7 % (36.0-66.0); PLATELET COUNT, AUTOMATED 225 10^3/uL (150-450); WHITE BLOOD COUNT 14.3 10^3/uL (4.0-10.0)
[2023-04-20 05:30] LABS: BLOOD UREA NITROGEN 24 MG/DL (9-23); CALCIUM LEVEL 8.5 MG/DL (8.3-10.6); CARBON DIOXIDE LEVEL 32 MMOL/L (20-31); CHLORIDE LEVEL 96 MMOL/L (98-107); CREATININE FOR GFR 0.58 MG/DL (0.70-1.30); GLOMERULAR FILTRATION RATE > 60.0 (>49); GLUCOSE, FASTING 100 MG/DL (74-106); POTASSIUM SERUM 3.5 MMOL/L (3.5-5.1); SODIUM LEVEL 134 MMOL/L (136-145)
[2023-04-20] MEDS: SYMBICORT 80/4.5MCG INHALER 6GM INH SCH ×2 (07:06→19:42)
[2023-04-20] MEDS: TIOTROPIUM INHALER/CAPSULE (SPIRIVA) INH SCH (07:10)
[2023-04-20] MEDS: SUCRALFATE SUSP 1GM/10ML UD PO SCH ×4 (07:30→20:26)
[2023-04-20] MEDS: INSULIN LISPRO (NovoLOG) PER UNIT SC SCH ×3 (07:30→17:03)
[2023-04-20] MEDS: LIDOCAINE 5% (LIDODERM) PATCH TD SCH (09:00)
[2023-04-20] MEDS ORDERED: POTASSIUM CHLORIDE 10MEQ SR TABLET PO ONE (09:00)
[2023-04-20] MEDS: FUROSEMIDE 100MG/10ML VIAL IV SCH (09:01)
[2023-04-20] MEDS: SENOKOT S TAB PO SCH ×2 (09:02→20:26)
[2023-04-20] MEDS: guaiFENesin ER 600 MG TAB PO SCH ×2 (09:02→20:25)
[2023-04-20] MEDS: DOCUSATE SODIUM 100MG CAPSULE PO SCH ×2 (09:02→20:26)
[2023-04-20] MEDS: PANTOPRAZOLE 40MG TAB (PROTONIX) PO SCH (09:02)
[2023-04-20] MEDS: predniSONE 10MG TAB PO SCH (09:02)
[2023-04-20] MEDS: MOM 30ML SUSPENSION UDC PO SCH (09:03)
[2023-04-20] MEDS: amLODIPine 5 MG TAB PO SCH ×2 (09:03→20:19)
[2023-04-20] MEDS: KETOROLAC 30 MG/ML 1ML VIAL IV SCH ×3 (10:53→22:42)
[2023-04-20] MEDS: ACETAMINOPHEN 500 MG TAB PO PRN (12:04)
[2023-04-21] VITALS (25 sets, daily range): BP systolic 106–124; BP diastolic 54–72; TEMP 96.5–97.8; O2SAT 89–98
[2023-04-21] MEDS: FENTANYL/ROPIVACAINE/NACL BAG 100 ML EPIDURAL SCH ×4 (00:26→22:42)
[2023-04-21] MEDS: KETOROLAC 30 MG/ML 1ML VIAL IV SCH ×4 (03:46→21:10)
[2023-04-21 05:02] LABS: BASO % 0.3 % (0.0-1.0); EOS # 0.2 10^3/uL (0.0-0.5); EOS % 1.1 % (0.0-3.0); HEMATOCRIT 36.2 % (42.0-52.0); HEMOGLOBIN 11.9 g/dl (13.5-17.5); LYMPH # 3.4 10^3/uL (1.5-5.0); LYMPH % 24.5 % (24.0-44.0); MEAN CORPUSCULAR HEMOGLOBIN 29.1 pg (27.0-33.0); MEAN CORPUSCULAR HGB CONC 32.9 g/dl (32.0-36.5); MEAN CORPUSCULAR VOLUME 88.5 fl (80.0-96.0); MONO % 7.5 % (2.0-8.0); NEUTROPHILS # 8.9 10^3/uL (1.5-8.5); NEUTROPHILS % 65.1 % (36.0-66.0); PLATELET COUNT, AUTOMATED 197 10^3/uL (150-450); RED BLOOD COUNT 4.09 10^6/uL (4.30-6.10); WHITE BLOOD COUNT 13.7 10^3/uL (4.0-10.0)
[2023-04-21 05:41] LABS: BLOOD UREA NITROGEN 38 MG/DL (9-23); CALCIUM LEVEL 8.7 MG/DL (8.3-10.6); CARBON DIOXIDE LEVEL 30 MMOL/L (20-31); CHLORIDE LEVEL 96 MMOL/L (98-107); CREATININE FOR GFR 0.75 MG/DL (0.70-1.30); GLOMERULAR FILTRATION RATE > 60.0 (>49); GLUCOSE, FASTING 119 MG/DL (74-106); MAGNESIUM LEVEL 1.6 MG/DL (1.8-2.4); SODIUM LEVEL 134 MMOL/L (136-145)
[2023-04-21] MEDS: INSULIN LISPRO (NovoLOG) PER UNIT SC SCH ×3 (07:30→17:40)
[2023-04-21] MEDS: LEVALBUTEROL 1.25MG 0.5ML CONCENTRATE NEB INH SCH ×6 (08:00→20:00)
[2023-04-21] MEDS: SODIUM CHLORIDE HYPERTONIC 3% 15ML NEB SOL INH SCH ×6 (08:00→20:00)
[2023-04-21] MEDS: LIDOCAINE 5% (LIDODERM) PATCH TD SCH (08:25)
[2023-04-21] MEDS: SUCRALFATE SUSP 1GM/10ML UD PO SCH ×4 (08:25→21:04)
[2023-04-21] MEDS: MOM 30ML SUSPENSION UDC PO SCH (08:25)
[2023-04-21] MEDS: FUROSEMIDE 100MG/10ML VIAL IV SCH (08:25)
[2023-04-21] MEDS: guaiFENesin ER 600 MG TAB PO SCH ×2 (08:26→21:03)
[2023-04-21] MEDS: predniSONE 10MG TAB PO SCH (08:26)
[2023-04-21] MEDS: DOCUSATE SODIUM 100MG CAPSULE PO SCH ×2 (08:26→21:04)
[2023-04-21] MEDS: SENOKOT S TAB PO SCH ×2 (08:27→21:03)
[2023-04-21] MEDS: MAGNESIUM OXIDE 400MG TAB (MAG-OX) PO SCH ×2 (08:27→21:04)
[2023-04-21] MEDS: PANTOPRAZOLE 40MG TAB (PROTONIX) PO SCH (08:27)
[2023-04-21] MEDS: amLODIPine 5 MG TAB PO SCH ×2 (09:00→21:00)
[2023-04-21] MEDS: TIOTROPIUM INHALER/CAPSULE (SPIRIVA) INH SCH (09:24)
[2023-04-21] MEDS: SYMBICORT 80/4.5MCG INHALER 6GM INH SCH ×2 (09:24→20:00)
[2023-04-21] MEDS: ACETAMINOPHEN 500 MG TAB PO PRN (21:04)
[2023-04-22] VITALS (15 sets, daily range): BP systolic 106–121; BP diastolic 50–69; TEMP 96.8–97.9; O2SAT 90–98
[2023-04-22] MEDS: KETOROLAC 30 MG/ML 1ML VIAL IV SCH ×5 (05:17→22:51)
[2023-04-22] MEDS: FENTANYL/ROPIVACAINE/NACL BAG 100 ML EPIDURAL SCH ×2 (05:23→15:31)
[2023-04-22 05:41] LABS: BASO % 0.2 % (0.0-1.0); EOS # 0.1 10^3/uL (0.0-0.5); EOS % 1.1 % (0.0-3.0); HEMATOCRIT 34.6 % (42.0-52.0); HEMOGLOBIN 11.4 g/dl (13.5-17.5); LYMPH # 3.6 10^3/uL (1.5-5.0); LYMPH % 30.8 % (24.0-44.0); MEAN CORPUSCULAR HEMOGLOBIN 29.2 pg (27.0-33.0); MEAN CORPUSCULAR HGB CONC 32.9 g/dl (32.0-36.5); MEAN CORPUSCULAR VOLUME 88.7 fl (80.0-96.0); MONO # 0.9 10^3/uL (0.0-0.8); MONO % 7.2 % (2.0-8.0); NEUTROPHILS % 59.2 % (36.0-66.0); PLATELET COUNT, AUTOMATED 199 10^3/uL (150-450); WHITE BLOOD COUNT 11.8 10^3/uL (4.0-10.0)
[2023-04-22 06:06] LABS: BLOOD UREA NITROGEN 38 MG/DL (9-23); CALCIUM LEVEL 8.2 MG/DL (8.3-10.6); CARBON DIOXIDE LEVEL 34 MMOL/L (20-31); CHLORIDE LEVEL 95 MMOL/L (98-107); GLOMERULAR FILTRATION RATE > 60.0 (>49); GLUCOSE, FASTING 76 MG/DL (74-106); MAGNESIUM LEVEL 1.6 MG/DL (1.8-2.4); POTASSIUM SERUM 3.9 MMOL/L (3.5-5.1); SODIUM LEVEL 134 MMOL/L (136-145)
[2023-04-22] MEDS: INSULIN LISPRO (NovoLOG) PER UNIT SC SCH ×3 (07:30→18:04)
[2023-04-22] MEDS: SODIUM CHLORIDE HYPERTONIC 3% 15ML NEB SOL INH SCH ×5 (08:00→20:02)
[2023-04-22] MEDS: LEVALBUTEROL 1.25MG 0.5ML CONCENTRATE NEB INH SCH ×5 (08:00→23:08)
[2023-04-22] MEDS: SYMBICORT 80/4.5MCG INHALER 6GM INH SCH ×2 (08:25→20:02)
[2023-04-22] MEDS: TIOTROPIUM INHALER/CAPSULE (SPIRIVA) INH SCH (08:26)
[2023-04-22] MEDS: DOCUSATE SODIUM 100MG CAPSULE PO SCH ×2 (08:47→20:14)
[2023-04-22] MEDS: SUCRALFATE SUSP 1GM/10ML UD PO SCH ×4 (08:47→20:13)
[2023-04-22] MEDS: predniSONE 10MG TAB PO SCH (08:48)
[2023-04-22] MEDS: PANTOPRAZOLE 40MG TAB (PROTONIX) PO SCH (08:48)
[2023-04-22] MEDS: SENOKOT S TAB PO SCH ×2 (08:48→20:14)
[2023-04-22] MEDS: amLODIPine 5 MG TAB PO SCH ×2 (08:49→21:00)
[2023-04-22] MEDS: MOM 30ML SUSPENSION UDC PO SCH (08:49)
[2023-04-22] MEDS: guaiFENesin ER 600 MG TAB PO SCH ×2 (08:49→20:14)
[2023-04-22] MEDS: MAGNESIUM OXIDE 400MG TAB (MAG-OX) PO SCH ×2 (08:49→20:14)
[2023-04-22] MEDS: FUROSEMIDE 100MG/10ML VIAL IV SCH (08:51)
[2023-04-22] MEDS: LIDOCAINE 5% (LIDODERM) PATCH TD SCH (08:52)
[2023-04-22] MEDS ORDERED: PERCOCET 5MG/325MG TAB PO PRN (08:55)
[2023-04-22] MEDS: PERCOCET 5MG/325MG TAB PO PRN (18:03)
[2023-04-23] VITALS (12 sets, daily range): BP systolic 101–137; BP diastolic 57–71; TEMP 96.5–97.9; O2SAT 93–97
[2023-04-23] MEDS: PERCOCET 5MG/325MG TAB PO PRN ×2 (03:17→15:04)
[2023-04-23 05:15] LABS: BASO % 0.2 % (0.0-1.0); EOS # 0.1 10^3/uL (0.0-0.5); HEMATOCRIT 32.5 % (42.0-52.0); HEMOGLOBIN 10.7 g/dl (13.5-17.5); LYMPH # 2.7 10^3/uL (1.5-5.0); LYMPH % 29.6 % (24.0-44.0); MEAN CORPUSCULAR HEMOGLOBIN 29.1 pg (27.0-33.0); MEAN CORPUSCULAR HGB CONC 32.9 g/dl (32.0-36.5); MEAN CORPUSCULAR VOLUME 88.3 fl (80.0-96.0); MONO # 0.8 10^3/uL (0.0-0.8); MONO % 9.1 % (2.0-8.0); NEUTROPHILS # 5.4 10^3/uL (1.5-8.5); NEUTROPHILS % 58.9 % (36.0-66.0); PLATELET COUNT, AUTOMATED 183 10^3/uL (150-450); RED BLOOD COUNT 3.68 10^6/uL (4.30-6.10); WHITE BLOOD COUNT 9.2 10^3/uL (4.0-10.0)
[2023-04-23 05:37] LABS: BLOOD UREA NITROGEN 33 MG/DL (9-23); CALCIUM LEVEL 8.3 MG/DL (8.3-10.6); CARBON DIOXIDE LEVEL 33 MMOL/L (20-31); CHLORIDE LEVEL 97 MMOL/L (98-107); CREATININE FOR GFR 0.69 MG/DL (0.70-1.30); GLOMERULAR FILTRATION RATE > 60.0 (>49); GLUCOSE, FASTING 98 MG/DL (74-106); MAGNESIUM LEVEL 1.4 MG/DL (1.8-2.4); POTASSIUM SERUM 3.8 MMOL/L (3.5-5.1); SODIUM LEVEL 135 MMOL/L (136-145)
[2023-04-23] MEDS ORDERED: diphenhydrAMINE 25MG CAP PO ONE (05:45)
[2023-04-23] MEDS ORDERED: LORATADINE 10 MG TAB PO ONE (05:45)
[2023-04-23] MEDS: KETOROLAC 30 MG/ML 1ML VIAL IV SCH ×3 (05:55→15:04)
[2023-04-23] MEDS: INSULIN LISPRO (NovoLOG) PER UNIT SC SCH ×2 (07:30→12:05)
[2023-04-23] MEDS: SUCRALFATE SUSP 1GM/10ML UD PO SCH ×2 (07:30→12:05)
[2023-04-23] MEDS: SYMBICORT 80/4.5MCG INHALER 6GM INH SCH (08:07)
[2023-04-23] MEDS: TIOTROPIUM INHALER/CAPSULE (SPIRIVA) INH SCH (08:07)
[2023-04-23] MEDS: LEVALBUTEROL 1.25MG 0.5ML CONCENTRATE NEB INH SCH ×3 (08:08→16:00)
[2023-04-23] MEDS: SODIUM CHLORIDE HYPERTONIC 3% 15ML NEB SOL INH SCH ×3 (08:08→16:00)
[2023-04-23] MEDS: guaiFENesin ER 600 MG TAB PO SCH (08:53)
[2023-04-23] MEDS: FUROSEMIDE 100MG/10ML VIAL IV SCH (08:53)
[2023-04-23] MEDS: MAGNESIUM OXIDE 400MG TAB (MAG-OX) PO SCH (08:53)
[2023-04-23] MEDS: amLODIPine 5 MG TAB PO SCH (08:54)
[2023-04-23] MEDS: DOCUSATE SODIUM 100MG CAPSULE PO SCH (08:55)
[2023-04-23] MEDS: PANTOPRAZOLE 40MG TAB (PROTONIX) PO SCH (08:55)
[2023-04-23] MEDS: SENOKOT S TAB PO SCH (08:55)
[2023-04-23] MEDS: LIDOCAINE 5% (LIDODERM) PATCH TD SCH (08:55)
[2023-04-23] MEDS: MOM 30ML SUSPENSION UDC PO SCH (08:55)
[2023-04-23] MEDS: predniSONE 10MG TAB PO SCH (08:55)
[2023-04-23] MEDS ORDERED: MAGN400T2 PO (11:35)
[2023-04-23] MEDS ORDERED: AMLO1TAB24 PO (11:35)
[2023-04-23] MEDS ORDERED: MAGNESIUM OXIDE 400MG TAB (MAG-OX) PO STA (11:46)
[2023-04-23] MEDS ORDERED: MAG SULF 1GM/100ML (MAG RUN) 1 GM in IV 1 EA IV SCH ×2 (12:00→13:00)
[2023-04-23] MEDS ORDERED: MAGNESIUM *L&D* 4GM/100ML BAG (40MG/ML) IV ONE (12:00)
[2023-04-23] MEDS ORDERED: MAGNESIUM OXIDE 400MG TAB (MAG-OX) PO ONE (12:35)
[2023-04-23] MEDS ORDERED: MAG SULF 1GM/100ML (MAG RUN) 1 GM in IV 1 EA IV ONE (13:00)
[2023-04-23] MEDS ORDERED: OXYC1TAB23 PO (15:11)
== END 2023-04-23 16:38 | disposition home health service (06) | DRG 184 ==
LOC: M ED 22:24 → EDBD 22:24 → M ED INP 04-08 01:38 → M MSPAV 04-08 02:28 → M PCU 04-13 16:12
PROVIDERS: ADMIT Family Medicine; ATTEND Internal Medicine Nephrology
PROC: 3E0S3NZ Introduction of Analgesics, Hypnotics, Sedatives into Epidural Space, Percutaneous Approach (ICD-10-PCS; 2023-04-14)
PROC: B246ZZZ Ultrasonography of Right and Left Heart (ICD-10-PCS; principal; 2023-04-15)
DX: S22.5XXA Flail chest, initial encounter for closed fracture (principal); E22.2 Syndrome of inappropriate secretion of antidiuretic hormone; J44.1 Chronic obstructive pulmonary disease with (acute) exacerbation; J98.11 Atelectasis; J90 Pleural effusion, not elsewhere classified; J94.2 Hemothorax; W18.30XA Fall on same level, unspecified, initial encounter; Y92.9 Unspecified place or not applicable; Y93.9 Activity, unspecified; Y99.8 Other external cause status; I10 Essential (primary) hypertension; F32.A Depression, unspecified; F17.210 Nicotine dependence, cigarettes, uncomplicated; K21.9 Gastro-esophageal reflux disease without esophagitis; K59.00 Constipation, unspecified; R53.1 Weakness; I71.20 Thoracic aortic aneurysm, without rupture, unspecified; E66.9 Obesity, unspecified; R09.02 Hypoxemia; E87.5 Hyperkalemia; R33.9 Retention of urine, unspecified; E87.6 Hypokalemia; F43.0 Acute stress reaction; R63.4 Abnormal weight loss; R63.0 Anorexia; Z68.33 Body mass index [BMI] 33.0-33.9, adult; Z79.01 Long term (current) use of anticoagulants; Z79.899 Other long term (current) drug therapy; Z88.8 Allergy status to other drugs, medicaments and biological substances

== ENCOUNTER 2023-12-13 13:09 | Observation (INO) | payer MEDICARE, MEDICAID ==
[~2023-12-13] VITALS: Ht 170.2 cm; Wt 100.4 kg
[~2023-12-13 13:09] MED LIST changes: +AMLO1TAB24 PO; +MAGN400T2 PO; -MIRA1POW3 PO; +MIRA33506 PO; +OXYC1TAB23 PO; +SPIR1CAP INH; +SYMB80INH INH
[2023-12-13] MEDS: NS 1,000 ML IV ONE (22:25)
[2023-12-13 22:57] LABS: BASO # 0.2 10^3/uL (0.0-0.2); EOS # 0.1 10^3/uL (0.0-0.5); EOS % 0.4 % (0.0-3.0); HEMATOCRIT 43.6 % (42.0-52.0); LYMPH # 1.2 10^3/uL (1.5-5.0); LYMPH % 8.1 % (24.0-44.0); MEAN CORPUSCULAR HEMOGLOBIN 30.7 pg (27.0-33.0); MEAN CORPUSCULAR HGB CONC 34.4 g/dl (32.0-36.5); MEAN CORPUSCULAR VOLUME 89.2 fl (80.0-96.0); MONO # 1.2 10^3/uL (0.0-0.8); MONO % 7.9 % (2.0-8.0); NEUTROPHILS # 11.9 10^3/uL (1.5-8.5); NEUTROPHILS % 82.1 % (36.0-66.0); PLATELET COUNT, AUTOMATED 151 10^3/uL (150-450); RED BLOOD COUNT 4.89 10^6/uL (4.30-6.10); WHITE BLOOD COUNT 14.5 10^3/uL (4.0-10.0)
[2023-12-14 00:12] LABS: LIPASE 23 U/L (12-53)
[2023-12-14 00:14] LABS: ALBUMIN 3.7 G/DL (3.2-5.2); ALKALINE PHOSPHATASE 76 U/L (46-116); ALT/SGPT 9 U/L (7.0-40); AST/SGOT 13 U/L (<34); BILIRUBIN,DIRECT 0.5 MG/DL (<0.4); BILIRUBIN,TOTAL 1.1 MG/DL (0.3-1.2); BLOOD UREA NITROGEN 21 MG/DL (9-23); CALCIUM LEVEL 9.3 MG/DL (8.3-10.6); CARBON DIOXIDE LEVEL 26 MMOL/L (20-31); CHLORIDE LEVEL 97 MMOL/L (98-107); CREATININE FOR GFR 0.72 MG/DL (0.70-1.30); GLOMERULAR FILTRATION RATE > 60.0 (>49); GLUCOSE, FASTING 114 MG/DL (74-106); POTASSIUM SERUM 3.7 MMOL/L (3.5-5.1); SODIUM LEVEL 130 MMOL/L (136-145); TOTAL PROTEIN 6.8 G/DL (5.7-8.2)
[2023-12-14 00:26] LABS: PROCALCITONIN <0.04 ng/ml
[2023-12-14] MEDS ORDERED: ISOVUE-370 76% 100ML VIAL As Ordered ONE (00:42)
[2023-12-14] MEDS ORDERED: HOME MED LIST COMPLETE! XX SCH (04:35)
[2023-12-14] MEDS ORDERED: COMBIVENT RESPIMAT 100-20MCG INHALER 4GM INH PRN (05:00)
[2023-12-14] MEDS ORDERED: ACETAMINOPHEN TAB 650MG DOSE (2X325MG) PO PRN (05:00)
[2023-12-14] MEDS ORDERED: MAALOX 30 ML SUSP *UDC PO PRN (05:00)
[2023-12-14] MEDS: NS 1,000 ML IV SCH (06:09)
[2023-12-14] MEDS: cefTRIAXone SOD 1 GM in D5W MINI-BAG PLUS 50 ML IV SCH (06:10)
[2023-12-14 06:50] LABS: HEMATOCRIT 37.7 % (42.0-52.0); HEMOGLOBIN 13.2 g/dl (13.5-17.5); MEAN CORPUSCULAR HEMOGLOBIN 30.6 pg (27.0-33.0); MEAN CORPUSCULAR VOLUME 87.3 fl (80.0-96.0); PLATELET COUNT, AUTOMATED 152 10^3/uL (150-450); RED BLOOD COUNT 4.32 10^6/uL (4.30-6.10); WHITE BLOOD COUNT 10.5 10^3/uL (4.0-10.0)
[2023-12-14 07:31] LABS: BLOOD UREA NITROGEN 19 MG/DL (9-23); CALCIUM LEVEL 8.3 MG/DL (8.3-10.6); CARBON DIOXIDE LEVEL 26 MMOL/L (20-31); CHLORIDE LEVEL 102 MMOL/L (98-107); CREATININE FOR GFR 0.65 MG/DL (0.70-1.30); GLOMERULAR FILTRATION RATE > 60.0 (>49); GLUCOSE, FASTING 83 MG/DL (74-106); POTASSIUM SERUM 3.7 MMOL/L (3.5-5.1); SODIUM LEVEL 136 MMOL/L (136-145)
[2023-12-14] MEDS: NYSTATIN 100,000 UNITS/GM TOPICAL PWD 15GM TOP SCH (09:00)
[2023-12-14] MEDS ORDERED: amLODIPine 5 MG TAB PO SCH (09:00)
[2023-12-14] MEDS: DOCUSATE SODIUM 100MG CAPSULE PO SCH (09:15)
[2023-12-14] MEDS: ENOXAPARIN 40MG/0.4ML SYRINGE (J1650 PER 10MG) SC SCH (09:15)
[2023-12-14] MEDS ORDERED: NYST1POW9 TOP (09:28)
[2023-12-14] MEDS ORDERED: COMBAER6 INH (09:29)
[2023-12-14] MEDS ORDERED: AMOX875T2 PO (09:29)
[2023-12-14 14:33] VITALS: TEMP 97.6; O2SAT 95
[2023-12-14 14:44] VITALS: BP 160/70
[2023-12-14] MEDS ORDERED: AMLO1TAB24 PO (15:06)
[2023-12-15] MEDS ORDERED: AMLO10TA PO (17:22)
[2023-12-15] MEDS ORDERED: NYST1POW9 TOP (17:22)
[2023-12-15] MEDS ORDERED: DIFL200T PO (17:22)
[2023-12-15] MEDS ORDERED: AMOX875T2 PO (17:22)
== END 2023-12-14 16:32 | disposition home or self-care (01) ==
LOC: M ED 13:09 → EDBD 13:09 → M ED INP 13:10
PROVIDERS: ADMIT Preventive Medicine Undersea and Hyperbaric Medicine; ATTEND Preventive Medicine Undersea and Hyperbaric Medicine
DX: R21 Rash and other nonspecific skin eruption (principal); L30.4 Erythema intertrigo; E87.1 Hypo-osmolality and hyponatremia; R62.7 Adult failure to thrive; J44.9 Chronic obstructive pulmonary disease, unspecified; I10 Essential (primary) hypertension; R53.1 Weakness; Z99.89 Dependence on other enabling machines and devices; Z79.2 Long term (current) use of antibiotics; Z79.899 Other long term (current) drug therapy; Z88.8 Allergy status to other drugs, medicaments and biological substances
CPT/HCPCS: 36415; 74177; 80048; 80076; 81001; 83605; 83690; 84145; 85025; 85027; 86140; 93041; 96365; 96372; 96375; 99285; G0378; J0696; J1650; Q9967

== ENCOUNTER 2023-12-15 15:11 | Emergency (ER) | payer MEDICARE, MEDICAID ==
[~2023-12-15 15:11] MED LIST changes: +AMOX875T2 PO; +COMBAER6 INH; +NYST1POW9 TOP
[2023-12-15] MEDS: LIDOCAINE 2% 5ML JELLY UROJET TOP ONE (16:18)
[2023-12-15 16:27] LABS: BASO # 0.1 10^3/uL (0.0-0.2); BASO % 1.3 % (0.0-1.0); EOS # 0.3 10^3/uL (0.0-0.5); EOS % 3.7 % (0.0-3.0); HEMATOCRIT 40.6 % (42.0-52.0); HEMOGLOBIN 13.7 g/dl (13.5-17.5); LYMPH # 1.7 10^3/uL (1.5-5.0); LYMPH % 24.5 % (24.0-44.0); MEAN CORPUSCULAR HEMOGLOBIN 30.2 pg (27.0-33.0); MEAN CORPUSCULAR HGB CONC 33.7 g/dl (32.0-36.5); MEAN CORPUSCULAR VOLUME 89.6 fl (80.0-96.0); MONO # 0.7 10^3/uL (0.0-0.8); MONO % 9.2 % (2.0-8.0); NEUTROPHILS # 4.3 10^3/uL (1.5-8.5); NEUTROPHILS % 60.9 % (36.0-66.0); PLATELET COUNT, AUTOMATED 156 10^3/uL (150-450); RED BLOOD COUNT 4.53 10^6/uL (4.30-6.10); WHITE BLOOD COUNT 7.1 10^3/uL (4.0-10.0)
[2023-12-15] MEDS: NS 1,000 ML IV ONE (16:36)
[2023-12-15 17:04] LABS: ALBUMIN 3.4 G/DL (3.2-5.2); ALKALINE PHOSPHATASE 71 U/L (46-116); ALT/SGPT 11 U/L (7.0-40); AST/SGOT 15 U/L (<34); BILIRUBIN,TOTAL 0.5 MG/DL (0.3-1.2); BLOOD UREA NITROGEN 14 MG/DL (9-23); CARBON DIOXIDE LEVEL 26 MMOL/L (20-31); CHLORIDE LEVEL 105 MMOL/L (98-107); CREATININE FOR GFR 0.62 MG/DL (0.70-1.30); GLOMERULAR FILTRATION RATE > 60.0 (>49); GLUCOSE, FASTING 88 MG/DL (74-106); MAGNESIUM LEVEL 1.6 MG/DL (1.8-2.4); POTASSIUM SERUM 3.8 MMOL/L (3.5-5.1); SODIUM LEVEL 135 MMOL/L (136-145); TOTAL PROTEIN 6.1 G/DL (5.7-8.2)
[2023-12-15] MEDS ORDERED: NYST1POW9 TOP (17:22)
[2023-12-15] MEDS ORDERED: DIFL200T PO (17:22)
[2023-12-15] MEDS ORDERED: AMLO10TA PO (17:22)
[2023-12-15] MEDS ORDERED: AMOX875T2 PO (17:22)
[2023-12-15] MEDS: MAG SULF 1GM/100ML (MAG RUN) 1 GM in IV 1 EA IV ONE (17:23)
[2023-12-15] MEDS: FLUCONAZOLE 400 MG in IV 1 EA IV ONE (17:23)
[2023-12-15] MEDS: AMPICILLIN SOD/SULBACTAM SOD 3 GM in D5W MINI-BAG PLUS 100 ML IV ONE (18:42)
[2023-12-15 19:33] VITALS: BP 149/89; TEMP 98.3; O2SAT 98
[2023-12-16] MEDS ORDERED: COMBAER6 INH (10:47)
[2023-12-16] MEDS ORDERED: AMOX875T2 PO (10:47)
[2023-12-16] MEDS ORDERED: NYST1POW9 TOP (10:47)
[2023-12-16] MEDS ORDERED: AMLO1TAB25 PO (10:47)
== END 2023-12-15 20:08 | disposition home or self-care (01) ==
LOC: M ED 15:11
DX: B37.9 Candidiasis, unspecified (principal); L03.90 Cellulitis, unspecified; Z88.8 Allergy status to other drugs, medicaments and biological substances
CPT/HCPCS: 51701; 80053; 81001; 83605; 83735; 85025; 86140; 87040; 96361; 96365; 96366; 96368; 99284; J0295; J1450; J3475

== ENCOUNTER 2023-12-15 22:18 | Emergency (ER) | payer MEDICARE, MEDICAID ==
[~2023-12-15] VITALS: Ht 170.2 cm; Wt 100.0 kg
[~2023-12-15 22:18] MED LIST changes: +AMLO10TA PO; +DIFL200T PO
[2023-12-16 07:53] LABS: BASO # 0.1 10^3/uL (0.0-0.2); BASO % 1.6 % (0.0-1.0); EOS # 0.3 10^3/uL (0.0-0.5); EOS % 4.2 % (0.0-3.0); HEMOGLOBIN 14.3 g/dl (13.5-17.5); LYMPH % 28.9 % (24.0-44.0); MEAN CORPUSCULAR HEMOGLOBIN 30.8 pg (27.0-33.0); MEAN CORPUSCULAR VOLUME 90.3 fl (80.0-96.0); MONO # 0.6 10^3/uL (0.0-0.8); MONO % 8.5 % (2.0-8.0); NEUTROPHILS % 56.5 % (36.0-66.0); PLATELET COUNT, AUTOMATED 192 10^3/uL (150-450); RED BLOOD COUNT 4.65 10^6/uL (4.30-6.10); WHITE BLOOD COUNT 7.1 10^3/uL (4.0-10.0)
[2023-12-16 08:22] LABS: BLOOD UREA NITROGEN 15 MG/DL (9-23); CALCIUM LEVEL 9.3 MG/DL (8.3-10.6); CARBON DIOXIDE LEVEL 28 MMOL/L (20-31); CHLORIDE LEVEL 103 MMOL/L (98-107); CREATININE FOR GFR 0.64 MG/DL (0.70-1.30); GLOMERULAR FILTRATION RATE > 60.0 (>49); GLUCOSE, FASTING 96 MG/DL (74-106); POTASSIUM SERUM 4.1 MMOL/L (3.5-5.1); SODIUM LEVEL 135 MMOL/L (136-145)
[2023-12-16] MEDS ORDERED: COMBAER6 INH (10:47)
[2023-12-16] MEDS ORDERED: AMLO1TAB25 PO (10:47)
[2023-12-16] MEDS ORDERED: NYST1POW9 TOP (10:47)
[2023-12-16] MEDS ORDERED: AMOX875T2 PO (10:47)
[2023-12-16] MEDS ORDERED: HOME MED LIST COMPLETE! XX SCH (10:50)
[2023-12-16 11:15] VITALS: BP 136/98; TEMP 96.5; O2SAT 96
== END 2023-12-16 11:45 | disposition home or self-care (01) ==
LOC: M ED 22:18 → EDBD 22:18 → M ED 12-16 11:45
DX: R26.2 Difficulty in walking, not elsewhere classified (principal); I10 Essential (primary) hypertension; J44.9 Chronic obstructive pulmonary disease, unspecified; Z99.3 Dependence on wheelchair; Z88.8 Allergy status to other drugs, medicaments and biological substances

== ENCOUNTER 2023-12-16 22:53 | Emergency (ER) | payer MEDICARE, MEDICAID ==
[~2023-12-16] VITALS: Ht 170.2 cm; Wt 122.7 kg
[~2023-12-16 22:53] MED LIST changes: +AMLO1TAB25 PO
[2023-12-16 22:54] VITALS: BP 135/81; TEMP 97.9; O2SAT 97
== END 2023-12-17 11:30 | disposition left against medical advice (07) ==
LOC: M ED 22:53
DX: Z53.21 Procedure and treatment not carried out due to patient leaving prior to being seen by health care provider (principal)

== ENCOUNTER 2023-12-17 12:58 | Emergency (ER) | payer MEDICARE, MEDICAID ==
[2023-12-17 13:09] VITALS: BP 114/80; TEMP 97.9; O2SAT 99
== END 2023-12-17 14:30 | disposition left against medical advice (07) ==
LOC: M ED 12:58
DX: Z53.21 Procedure and treatment not carried out due to patient leaving prior to being seen by health care provider (principal)